=== PATIENT | male | born 1980 | race American Indian/Alaskan Native ===

== ENCOUNTER 2018-11-12 14:04 | Inpatient (IN) | payer SELFPAY ==
[2018-11-12] MEDS ORDERED: IBUPROFEN 800 MG TAB PO ONE (14:11)
--- NOTE | 2018-11-12 14:13 | Emergency Department Report ---
Blank Doc - Documentation Documentation: 38-year-old male that presents with generlized rash. Patient is a homosexual and perform oral sexual activity. This initial assessment/diagnostic orders/clinical plan/treatment(s) is/are subject to change based on patient's health status, clinical progression and re-assessment by fellow clinical providers in the ED. Further treatment and workup at subsequent clinical providers discretion. Patient/guardians urged not to elope from the ED as their condition may be serious if not clinically assessed and managed. Initial orders include: 1- Patient sent to [facility] for further evaluation and treatment 2- labs 3- motrin for fever
[2018-11-12 14:36] LABS: Basophils % (Auto) 0.7 % (0.0-1.8); Eosinophils % (Auto) 0.2 % (0.0-4.3); Hematocrit 39.1 % (35.5-45.6); Hemoglobin 12.7 gm/dl (11.8-15.2); Lymphocytes # (Auto) 1.5 K/mm3 (1.2-5.4); Lymphocytes % (Auto) 31.3 % (13.4-35.0); Mean Corpuscular HGB Conc 32 % (32-34); Mean Corpuscular Volume 72 fl (84-94); Monocytes # (Auto) 0.4 K/mm3 (0.0-0.8); Monocytes % (Auto) 7.4 % (0.0-7.3); Platelet Count 163 K/mm3 (140-440); Red Blood Count 5.47 M/mm3 (3.65-5.03); Red Cell Distribution Width 14.9 % (13.2-15.2)
[2018-11-12 14:55] LABS: BUN/Creatinine Ratio 10; Blood Urea Nitrogen 9 mg/dL (9-20); Calcium 9.1 mg/dL (8.4-10.2); Hemolysis Index 5
[2018-11-12] MEDS ORDERED: SODIUM CHLORIDE 0.9% 1000 ML 1,000 ML IV ONE (17:41)
--- NOTE | 2018-11-12 17:50 | Emergency Department Report ---
<ANKIT SOLARES III Monica - Last Filed: 11/12/18 20:44> ED General Adult HPI - General Chief complaint: Skin Rash Stated complaint: RASH Time Seen by Provider: 11/12/18 14:09 - Related Data Home Medications Medication Instructions Recorded Confirmed Last Taken No Known Home Medications [No 11/12/18 11/12/18 Unknown Reported Home Medications] Allergies Allergy/AdvReac Type Severity Reaction Status Date / Time No Known Allergies Allergy Unverified 11/12/18 14:07 ED Past Medical Hx - Medications Home Medications: Home Medications Medication Instructions Recorded Confirmed Last Taken Type No Known Home Medications [No 11/12/18 11/12/18 Unknown History Reported Home Medications] ED Course - Reevaluation(s) Reevaluation #1: I examined the patient. I discussed plan of care with patient. Patient agrees with plan of care. Patient will be admitted to the hospital service. Patient will an IV placed. Patient has a widespread car postseason-looking rash. 11/12/18 17:50 - Consultations Consultation #1: Hospitalist consulted for admission. Hospitalist to admit patient. 11/12/18 18:50 ED Medical Decision Making - Lab Data Result diagrams: 11/12/18 14:22 11/12/18 14:22 - Radiology Data Radiology results: report reviewed, image reviewed CHEST 2 VIEWS INDICATION / CLINICAL INFORMATION: fever tachy HIV+. COMPARISON: None available. FINDINGS: SUPPORT DEVICES: None. HEART / MEDIASTINUM: No significant abnormality. LUNGS / PLEURA: There is a focal mass measuring 5 cm in diameter within the lingular segment of the left upper lobe. This could represent neoplasm or infection. CT of the chest with contrast is suggested for further evaluation. The right lung is grossly clear. No large pleural effusion. ED Disposition Clinical Impression: Rash, Tachycardia, Noncompliance, Abnormal chest x-ray Fever Qualifiers: Fever type: unspecified Qualified Code(s): R50.9 - Fever, unspecified Fatigue Qualifiers: Fatigue type: unspecified Qualified Code(s): R53.83 - Other fatigue HIV (human immunodeficiency virus infection) Qualifiers: HIV symptom status: symptomatic Qualified Code(s): B20 - Human immunodeficiency virus [HIV] disease Disposition: OP ADMIT IP TO THIS HOSP Is pt being admited?: Yes Does the pt Need Aspirin: No Condition: Critical Time of Disposition: 19:01 <[place],ASA' M - Last Filed: 11/13/18 21:10> ED General Adult HPI - General Source: patient Mode of arrival: Ambulatory Limitations: No Limitations - History of Present Illness Initial comments: 38-year-old -[place]i male comes in for generalized rash fatigue and temperature. Patient reports that he had a rash for 1 week. Patient has a past medical history of HIV and has not been on his medication close to a year. Patient reports he was followed by Morenita Douglas but has not seen her in a long while. Patient admits to sweating fever no energy and weakness. Onset/Timin -: week(s) Location: chest, back, abdomen, upper extremity, lower extremity Radiation: non-radiation Consistency: constant Worsens with: none Associated Symptoms: diaphoresis, fever/chills, loss of appetite, malaise ED Review of Systems ROS: Stated complaint: RASH Other details as noted in HPI Comment: All other systems reviewed and negative Constitutional: chills, fever, weakness Skin: rash Neurological: weakness ED Past Medical Hx - Past Medical History Previous Medical History?: No Hx HIV: Yes - Surgical History Past Surgical History?: No - Social History Smoking Status: Current Every Day Smoker Substance Use Type: Alcohol ED Physical Exam - General Limitations: No Limitations General appearance: alert, in no apparent distress - Head Head exam: Present: atraumatic, normocephalic - ENT ENT exam: Present: mucous membranes moist - Respiratory Respiratory exam: Present: normal lung sounds bilaterally. Absent: respiratory distress - Extremities Exam Extremities exam: Present: other (rashes noted multiple lesions) - Back Exam Back exam: Present: rash noted - Neurological Exam Neurological exam: Present: alert, oriented X3, normal gait - Psychiatric Psychiatric exam: Present: normal affect, normal mood - Expanded Skin Exam Expanded Distribution of rash: chest, back, abdomen, RUE, LUE, RLE, LLE Description of rash: Present: macular, other (purpura) ED Course Vital Signs 11/12/18 11/12/18 11/12/18 14:09 15:44 23:00 Temperature 101.5 F H 99.8 F H Pulse Rate 101 H 90 Respiratory 16 18 16 Rate Blood Pressure 133/76 124/79 [Left] O2 Sat by Pulse 98 100 Oximetry ED Medical Decision Making - Lab Data Result diagrams: 11/13/18 06:11 11/13/18 06:11 - Medical Decision Making 38-year-old -[place]i male comes in for generalized rash fatigue and temperature. Patient reports that he had a rash for 1 week. Patient has a past medical history of HIV and has not been on his medication close to a year. Patient reports he was followed by Morenita Douglas but has not seen her in a long while. Patient admits to sweating fever no energy and weakness. Was evaluated by he interviewed patient and recommends the patient be admitted. - Differential Diagnosis AIDS, Kaposi's sarcoma, tuberculosis, pneumonia, Critical care attestation.: If time is entered above; I have spent that time in minutes in the direct care of this critically ill patient, excluding procedure time.
--- NOTE | 2018-11-12 19:27 | XRay Report ---
CHEST 2 VIEWS INDICATION / CLINICAL INFORMATION: fever tachy HIV+. COMPARISON: None available. FINDINGS: SUPPORT DEVICES: None. HEART / MEDIASTINUM: No significant abnormality. LUNGS / PLEURA: There is a focal mass measuring 5 cm in diameter within the lingular segment of the l eft upper lobe. This could represent neoplasm or infection. CT of the chest with contrast is suggeste d for further evaluation. The right lung is grossly clear. No large pleural effusion. Signer Name: Fausto Mariscal MD Signed: 11/12/2018 7:22 PM Workstation Name: [id number]
[2018-11-12] MEDS ORDERED: HYDROmorphone 1 MG/1 ML INJ IV PRN (21:59)
[2018-11-12] MEDS ORDERED: D5W/0.9% NACL 1,000 ML IV SCH (22:00)
[2018-11-12] MEDS ORDERED: ALBUTEROL 2.5 MG/3 ML NEBU IH PRN (22:02)
[2018-11-13 06:55] LABS: Alanine Aminotransferase 36 units/L (7-56); Albumin 3.2 g/dL (3.9-5); BUN/Creatinine Ratio 9; Blood Urea Nitrogen 8 mg/dL (9-20); Calcium 8.6 mg/dL (8.4-10.2); Hemolysis Index 10
[2018-11-13 06:57] LABS: Hematocrit 37.6 % (35.5-45.6); Hemoglobin 11.9 gm/dl (11.8-15.2); Mean Corpuscular HGB Conc 32 % (32-34); Mean Corpuscular Volume 72 fl (84-94); Platelet Count 170 K/mm3 (140-440); Red Cell Distribution Width 14.9 % (13.2-15.2)
--- NOTE | 2018-11-13 07:05 | Event Note ---
Date: 11/12/18 See H/p in reports [facility] Pneumonia HIV Kaposi sarcoma Noncompliance
--- NOTE | 2018-11-13 07:49 | History and Physical Report ---
CHIEF COMPLAINT: Skin rash all over for 1 week. HISTORY OF PRESENT ILLNESS: A 38-year-old -[place]er male with history of HIV, noncompliant with antiretrovirals, comes in for rash all over the body for one week. Elevated papular lesions. No itching. The patient also has some cough and congestion. Some shortness of breath. The patient follows with Dr. Douglas, but not regularly. Feels weak. As per the patient, there is no fever. PAST MEDICAL HISTORY: Significant for HIV. PAST SURGICAL HISTORY: None. SOCIAL HISTORY: Smokes over a pack a day. FAMILY HISTORY: Unremarkable. REVIEW OF SYSTEMS: Significant for shortness of breath and skin lesions all over. Otherwise, review of systems negative. PHYSICAL EXAMINATION: GENERAL: Middle-aged male, cooperative during examination. VITAL SIGNS: Blood pressure is 124/74, temperature is 102.4, pulse is 90-100, respirations are 16. HEENT: Unremarkable. Pupils equal and reactive. NECK: Supple, no lymphadenopathy, no thyromegaly. LUNGS: Scattered rhonchi bilaterally. CARDIOVASCULAR: S1, S2 heard. No gallop, no murmur, no rub. Apical impulse in left fifth intercostal space in midclavicular line. ABDOMEN: Soft and benign. No hepatosplenomegaly. No guarding, no rigidity. Hernial orifices are normal. EXTREMITIES: Good pedal pulses. No pedal edema. CENTRAL NERVOUS SYSTEM: Alert and oriented x 4, nonfocal exam. SKIN: The patient has multiple elevated, papular, round lesions about 1 cm x 1 cm. Slight erythema present. LABORATORY DATA AND IMAGING STUDIES: Chest x-ray shows a large infiltrate in the left lower lobe, focal mass measuring 5 cm in diameter. This could represent a neoplasm or infection. CT of the chest with contrast is suggested. Labs are significant for white count of 5000, H and H are 12.7 and 39.1, platelet count is 163,000. Electrolytes: Sodium 134, chloride 97.3. Potassium 4.2. LFTs: AST slightly elevated at 56, ALT 36, total protein is 8.9, albumin is 3.2. ASSESSMENT AND PLAN: 1. Left lower lobe pneumonia. We will treat it as community-acquired pneumonia with Rocephin and azithromycin. ID consult requested for proper antibiotic treatment. DuoNebs in the meantime. No steroids were initiated. 2. Human immunodeficiency virus. The patient noncompliant. Human immunodeficiency virus workup to be initiated by the Infectious Disease. 3. Kaposi sarcoma, most likely. The patient needs to take antiretrovirals on a regular basis. ID consult requested. 4. Hyponatremia, very mild. IV fluids for the time being. 5. Malnutrition. Dietitian consult requested. 6. Transaminitis, very mild. We will trend the AST. 7. Deep venous thrombosis prophylaxis, Lovenox 40 mg subcutaneous daily. In summary, the patient has left lower lobe pneumonia, HIV, possible Kaposi sarcoma, mild hyponatremia and malnutrition. JOB# [id number] HIMA/CHITRA WILLAMS
[2018-11-13] MEDS: IPRATROPIUM/ALBUTEROL SULFATE 3 ML AMPUL.NEB IH SCH ×4 (08:37→17:45)
--- NOTE | 2018-11-13 10:03 | Cat Scan Report ---
CT CHEST WITH CONTRAST INDICATION / CLINICAL INFORMATION: left lung mass on x-ray. TECHNIQUE: Axial CT images were obtained through the chest after Omnipaque 300 100 cc IV contrast. Sagittal and coronal reformatted images. All CT scans at this location are performed using CT dose reduction for A DOMINICK by means of automated exposure control. COMPARISON: Chest x-ray dated 11/12/2018 FINDINGS: HEART: No significant abnormality. THORACIC AORTA: No significant abnormality. MEDIASTINUM and JAMSHID: No significant abnormality. LUNGS: A 4.1 x 4.4 x 3.3 cm masslike lesion with mild internal cavitation is identified in the lingul a. There are approximately 3 ill-defined nodular densities in the anterior and lateral left lower lob e measuring up to 8 mm. There are 5 similar appearing nodular densities in the right lower lobe measu ring up to 9 mm. A 1.3 cm nodular density is noted in the medial right middle lobe. PLEURA: No significant pleural effusion. No pneumothorax. SKELETAL SYSTEM: No significant abnormality. UPPER ABDOMEN: No significant abnormality. ADDITIONAL FINDINGS: None. IMPRESSION: Multiple bilateral pulmonary nodules/masses are identified in the lower lung zones as described above . The largest mass is located in the lingula and demonstrates mild internal cavitation. A metastatic process should be considered. Opportunistic infection could also be considered in the immunocompromis ed patient. Please correlate with the patient's clinical presentation. Signer Name: Frederick Carrillo Jr, MD Signed: 11/13/2018 9:59 AM Workstation Name: [id number]
--- NOTE | 2018-11-13 10:16 | Progress Note ---
Assessment and Plan Assessment and plan: Pneumonia - Patient is on IV azithromycin and ceftriaxone - Blood cultures pending - Patient still has fever Multiple pulmonary nodules - Opportunistic infection VS malignancy - CT results noted HIV/AIDS - ID consulted Molluscum contagiosum, Kaposi's sarcoma - Management per ID DVT prophylaxis Disposition; continue inpatient care History Interval history: Patient was seen and evaluated this morning. Patient has fever episodes overnight. Patient is also complaining of some shortness of breath. Hospitalist Physical - Physical exam Narrative exam: Not in cardiopulmonary distress. The patient appeared well nourished and normally developed. Vital signs as documented. Head exam is unremarkable. No scleral icterus . Neck is without jugular venous distension, thyromegaly, or carotid bruits. Lungs are clear to auscultation. Cardiac exam reveals regular rate and Rhythm. Abdominal exam reveals normal bowel sounds, no masses, no organomegaly and no aortic enlargement. Extremities are nonedematous and both femoral and pedal pulses are normal. 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 No focal weakness. SKIN; molluscum contagiosum. Skin eruption all over. - Constitutional Vitals: Temp Pulse Resp BP Pulse Ox 102.4 F H 97 H 20 107/55 97 11/13/18 05:12 11/13/18 05:12 11/13/18 05:12 11/13/18 05:12 11/13/18 05:12 Results - Labs CBC & Chem 7: 11/13/18 06:11 11/13/18 06:11 Labs: Laboratory Last Values WBC 4.2 K/mm3 (4.5-11.0) L 11/13/18 06:11 RBC 5.20 M/mm3 (3.65-5.03) H 11/13/18 06:11 Hgb 11.9 gm/dl (11.8-15.2) 11/13/18 06:11 Hct 37.6 % (35.5-45.6) 11/13/18 06:11 MCV 72 fl (84-94) L 11/13/18 06:11 MCH 23 pg (28-32) L 11/13/18 06:11 MCHC 32 % (32-34) 11/13/18 06:11 RDW 14.9 % (13.2-15.2) 11/13/18 06:11 Plt Count 170 K/mm3 (140-440) 11/13/18 06:11 Lymph % (Auto) Online Facilitator 11/13/18 06:11 Nicholas % (Auto) Online Facilitator 11/13/18 06:11 Eos % (Auto) Online Facilitator 11/13/18 06:11 Baso % (Auto) Online Facilitator 11/13/18 06:11 Lymph # Online Facilitator 11/13/18 06:11 Nicholas # Online Facilitator 11/13/18 06:11 Eos # Online Facilitator 11/13/18 06:11 Baso # Online Facilitator 11/13/18 06:11 Seg Neutrophils % Online Facilitator 11/13/18 06:11 Seg Neutrophils # Online Facilitator 11/13/18 06:11 Sodium 136 mmol/L (137-145) L 11/13/18 06:11 Potassium 4.1 mmol/L (3.6-5.0) 11/13/18 06:11 Chloride 100.8 mmol/L (98-107) 11/13/18 06:11 Carbon Dioxide 26 mmol/L (22-30) 11/13/18 06:11 13 mmol/L 11/13/18 06:11 BUN 8 mg/dL (9-20) L 11/13/18 06:11 0.9 mg/dL (0.8-1.5) 11/13/18 06:11 Estimated GFR > 60 ml/min 11/13/18 06:11 9 % 11/13/18 06:11 Glucose 94 mg/dL (75-100) 11/13/18 06:11 5.5 % (4-6) 11/12/18 14:22 Lactic Acid 1.50 mmol/L (0.7-2.0) 11/12/18 15:22 Calcium 8.6 mg/dL (8.4-10.2) 11/13/18 06:11 0.30 mg/dL (0.1-1.2) 11/13/18 06:11 AST 56 units/L (5-40) H 11/13/18 06:11 ALT 36 units/L (7-56) 11/13/18 06:11 77 units/L (35-129) 11/13/18 06:11 8.9 g/dL (6.3-8.2) H 11/13/18 06:11 3.2 g/dL (3.9-5) L 11/13/18 06:11 0.6 % 11/13/18 06:11 Active Medications - Current Medications Current Medications: Generic Name Dose Route Start Last Admin Trade Name Freq PRN Reason Stop Dose Admin Acetaminophen 650 mg 11/12/18 21:59 Tylenol PO Q4H PRN Pain MILD(1-3)/Fever >100.5/FALK Albuterol 2.5 mg 11/12/18 22:02 11/13/18 02:53 Proventil IH 2.5 mg Q4HRT PRN Administration Shortness Of Breath Albuterol/Ipratropium 1 ampul 11/13/18 08:00 11/13/18 08:37 Duoneb *Not For Prn Use* IH 1 ampul QIDRT WIN Administration Enoxaparin Sodium 40 mg 11/13/18 10:00 Lovenox SUB-Q QDAY WIN Hydromorphone HCl 0.5 mg 11/12/18 21:59 Dilaudid IV Q3H PRN Pain , Severe (7-10) Azithromycin 500 mg/ Sodium 250 mls @ 250 mls/hr 11/13/18 10:00 Chloride IV Q24HR WIN Protocol Ceftriaxone Sodium 2 gm in 100 mls @ 200 mls/hr 11/13/18 10:00 Rocephin/Ns 2 Gm/100 Ml IV Q24HR WIN Protocol Sodium Chloride 1,000 mls @ 75 mls/hr 11/13/18 08:00 Nacl 0.9% 1000 Ml IV DIRECT WIN Ondansetron HCl 4 mg 11/12/18 21:59 Zofran IV Q8H PRN Nausea And Vomiting Oxycodone/Acetaminophen 1 tab 11/12/18 21:59 Percocet 5/325 PO Q6H PRN Pain, Moderate (4-6) Sodium Chloride 10 ml 11/12/18 22:00 11/12/18 23:08 Sodium Chloride Flush Syringe 10 Ml IV 10 ml BID WIN Administration Sodium Chloride 10 ml 11/12/18 21:59 Sodium Chloride Flush Syringe 10 Ml IV PRN PRN LINE FLUSH Nutrition/Malnutrition Assess - Dietary Evaluation Nutrition/Malnutrition Findings: Nutrition Notes Start: 11/13/18 09:49 Freq: Status: Active Protocol: Document 11/13/18 09:49 NAVID (Rec: 11/13/18 10:08 NAVID [id number]) Co-Sign 11/13/18 09:49 KH Nutrition Notes 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 Pt ate about 50% of breakfast because he stated he didn't like the food. Observed slight temporal muscle wasting. Pt agreed to try Ensure once daily. Burn Absent Trauma Absent Minimum of two criteria No #1 Nutrition Diagnosis Predicted suboptimal energy intake Etiology HIV As Evidenced by Signs and Symptoms 6% wt loss in 3 months Is patient on ventilator? No Is Patient Ambulatory and/or Out of Bed Yes REE-([facility]-ambulatory/OOB) [ 96 NUTR.[id number]] Calculation Used for Recommendations [facility] Additional Notes Protein needs: 51g-63g/kg (0.8 -1g/kg) Fluid needs: 1ml/kcal Nutrition Intervention Change Diet Order: Continue current Add Supplement/Snack (indicate name/kcal Ensure Enlive daily /protein ) Provides kCal: 350 Provides Protein (gm) 20 Goal #1 Meet at least 75% of protein and energy needs via po and ONS intakes Anticipated Discharge Needs: Regular diet and ONS PRN Follow-Up By: 11/17/18 Additional Comments F/U po and ONS intakes
[2018-11-13] MEDS: cefTRIAXone/NS 2 GM/100 ML 2 GM/100 ML BAG IV SCH (10:43)
[2018-11-13] MEDS: ENOXAPARIN 40 MG/0.4 ML INJ SUB-Q SCH (10:44)
[2018-11-13] MEDS: AZITHROMYCIN 500 MG in SODIUM CHLORIDE 0.9% 250ML 250 ML IV SCH (10:44)
[2018-11-13] MEDS: oxyCODONE /ACETAMINOPHEN 5-325MG TAB PO PRN ×2 (11:02→22:49)
--- NOTE | 2018-11-13 11:54 | Consultation ---
History of Present Illness - Reason for Consult Consult date: 11/13/18 - History of Present Illness 38 yo M PMHx HIV who presents to the hospital complaining of generalized rash and fatigue. He notes these symptoms began approximately 1 week prior to admission. He also complains of a subjective fever. Regarding his HIV he falk been off medication for over a year now, and has not followed with his HIV doctor, Dr. Douglas, in some time. He is not taking any opportunistic infection prophylaxis. He notes some shortness of breath as well, but very mild, and minimal cough. He complains of a chronic, very mild headache. his last ART was Biktarvy, unsure of his most recent CD4. For the last 2-3 weeks he has developed numerous skin lesion, some papular, some large purple plaques. Mildly itchy, tho ugh not really. Has a history of previously diagnosed Molluscum near his eye. He is currently febrile to 102.4 with a white count of 4.2. He is also tachycardic. He is currently receiving ceftriaxone and azithromycin. 11/12 BCx NGTD. Imaging personally reviewed: CXR: Focal mass 5cm in lingula; neoplasm vs infection. CT chest: multiple bilateral pulmonary nodules in the lower lung zones. Lingular mass demonstrates mild internal cavitation. Metastatic vs opportunistic infection. Review of systems: Bold if positive; otherwise negative GENERAL: fever, chills, weight loss, fatigue, night sweats EYES: blurry vision, eye pain HENT: headache, hearing loss, sore throat, dysphagia, sinus pain CARDIO: chest pain, palpitations, orthopnea PULM: shortness of breath, wheezing, cough, sputum, hemoptysis GI: nausea, vomiting, diarrhea, abdominal pain, blood in stool : urinary frequency, urgency, dysuria, urethral discharge MSK: joint pain, back pain, swelling SKIN: rash, redness HEME: easy bruising, bleeding Past History Past Medical History: other (HIV) Past Surgical History: No surgical history Social history: denies: smoking, alcohol abuse Family history: hypertension Medications and Allergies Allergies Allergy/AdvReac Type Severity Reaction Status Date / Time No Known Allergies Allergy Unverified 11/12/18 14:07 Home Medications Medication Instructions Recorded Confirmed Last Taken Type No Known Home Medications [No 11/12/18 11/12/18 Unknown History Reported Home Medications] Active Meds: Active Medications Acetaminophen (Tylenol) 650 mg PO Q4H PRN PRN Reason: Pain MILD(1-3)/Fever >100.5/FALK Albuterol (Proventil) 2.5 mg IH Q4HRT PRN PRN Reason: Shortness Of Breath Last Admin: 11/13/18 02:53 Dose: 2.5 mg Documented by: Albuterol/Ipratropium (Duoneb *Not For Prn Use*) 1 ampul IH QIDRT [facility] Last Admin: 11/13/18 08:37 Dose: 1 ampul Documented by: Enoxaparin Sodium (Lovenox) 40 mg SUB-Q QDAY [facility] Last Admin: 11/13/18 10:44 Dose: 40 mg Documented by: Hydromorphone HCl (Dilaudid) 0.5 mg IV Q3H PRN PRN Reason: Pain , Severe (7-10) Azithromycin 500 mg/ Sodium (Chloride) 250 mls @ 250 mls/hr IV Q24HR [facility]; Protocol Last Admin: 11/13/18 10:44 Dose: 250 mls/hr Documented by: Ceftriaxone Sodium (Rocephin/Ns 2 Gm/100 Ml) 2 gm in 100 mls @ 200 mls/hr IV Q24HR [facility]; Protocol Last Admin: 11/13/18 10:43 Dose: 200 mls/hr Documented by: Sodium Chloride (Nacl 0.9% 1000 Ml) 1,000 mls @ 75 mls/hr IV DIRECT WIN Ondansetron HCl (Zofran) 4 mg IV Q8H PRN PRN Reason: Nausea And Vomiting Oxycodone/Acetaminophen (Percocet 5/325) 1 tab PO Q6H PRN PRN Reason: Pain, Moderate (4-6) Last Admin: 11/13/18 11:02 Dose: 1 tab Documented by: Sodium Chloride (Sodium Chloride Flush Syringe 10 Ml) 10 ml IV BID [facility] Last Admin: 11/13/18 10:45 Dose: 10 ml Documented by: Sodium Chloride (Sodium Chloride Flush Syringe 10 Ml) 10 ml IV PRN PRN PRN Reason: LINE FLUSH Physical Examination - Physical Exam Narrative exam: General - Normal appearance, well developed, no acute distress Eyes - PERRLA, EOM intact ENT - Moist mucous membranes, no lymphadenopathy Neck - No noticeable or palpable swelling, redness or rash around throat or on face Lymph Nodes - No lymphadenopathy Cardiovascular - RRR no m/r/g, no JVD, no carotid bruits Lungs - Clear to auscultation, no use of accessory muscles, no crackles or wheezes. Skin - Diffuse lesions on trunk and extremities. Innumerable red nodules, with apprxomiately 20 re/purple plaques. Pearly papular lesions near eyelid. Abdomen - Normal bowel sounds, abdomen soft and nontender Extremities - No edema, cyanosis or clubbing Musculoskeletal - 5/5 strength, normal range of motion, no swollen or erythematous joints. Neurological - Alert and oriented x 3, CN 2-12 grossly intact. - Constitutional Vitals: Vital Signs Temp Pulse Resp BP Pulse Ox 102.4 F H 97 H 20 107/55 97 11/13/18 05:12 11/13/18 05:12 11/13/18 05:12 11/13/18 05:12 11/13/18 05:12 Temperature -Last 24 Hours Temperature 102.4 F Temperature 98.8 F Temperature 99.8 F Temperature 101.5 F Results - Labs CBC & Chem 7: 11/13/18 06:11 11/13/18 06:11 Labs: Abnormal lab results 11/12/18 11/12/18 11/13/18 Range/Units 14:22 14:22 06:11 WBC 4.2 L (4.5-11.0) K/mm3 RBC 5.47 H 5.20 H (3.65-5.03) M/mm3 MCV 72 L 72 L (84-94) fl MCH 23 L 23 L (28-32) pg [place] % (Auto) 7.4 H (0.0-7.3) % Sodium 134 L (137-145) mmol/L Chloride 97.3 L (98-107) mmol/L BUN (9-20) mg/dL AST (5-40) units/L Total Protein (6.3-8.2) g/dL Albumin (3.9-5) g/dL 11/13/18 Range/Units 06:11 WBC (4.5-11.0) K/mm3 RBC (3.65-5.03) M/mm3 MCV (84-94) fl MCH (28-32) pg [place] % (Auto) (0.0-7.3) % Sodium 136 L (137-145) mmol/L Chloride (98-107) mmol/L BUN 8 L (9-20) mg/dL AST 56 H (5-40) units/L Total Protein 8.9 H (6.3-8.2) g/dL Albumin 3.2 L (3.9-5) g/dL Assessment and Plan Cultures: BCx 11/12 - NGTD Assessment: 38 yo M PMHx HIV/AIDS not on ART admitted with fevers, pneumonia 1. Acute sepsis - present on admission with fevers, leukopenia, tachycardia. Likely secondary to pneumonia. 2. Pulmonary nodules in immunocompromised patient - broad differential in patient off ART. In the setting of cavitation must rule out TB, so I have ordered 3x AFB cultures/smears spaced 8 hours apart. I have ordered airborne precautions until it is ruled out. Other differential: pulmonary Cryptococcosis (have ordered serum Ag; if positive would need LP), PJP though does not have classic imaging findings, Histoplasmosis/blastomycosis (have ordered urine antibodies for both), bacterial pneumonia, malignancy, MAC. Would obtain pulmonary consult for bronch and further diagnosis. 3. HIV/AIDS - will check CD4 and viral load to see current disease state. Would recommend holding off on starting ART until above ruled out (notably TB and Crypto). Would also check Hepatitis C antibody and syphilis screen given he has been out of care for some time. 4. 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 Requires skin biopsy. Please send biopsy for path and Bartonella PCR. In consideration with his pulmonary findings would lean toward [place], but very difficult to differentiate. Recs: - CD4 count (ordered) - viral load (ordered) - Cryptococcus serum antigen (ordered) - pulmonology consult for bronch - please obtain bacterial, fungal cultures, PJP PCR (please obtain) - histoplasmosis/blastomycosis urine antibodies (ordered) - Fungitell (ordered) - 3x AFB cultures spaced 8 hours apart to rule out TB (ordered) - airborne isolation pending negative smears (ordered) - hold off on ART pending investigation into opportunistic infections (primarily Crypto) - hepatitis C Ab (ordered) - syphilis screen (ordered) - General surgery for skin biopsy (please obtain) - please send for path and Bartonella PCR (ordered PCR) Thank you for the consult, we will continue to follow. Renee Valentin MD [facility] ([facility]) M: [phone] O: [phone] F: [phone]
[2018-11-13] MEDS: ACETAMINOPHEN 325 MG TAB PO PRN (17:57)
[2018-11-13] MEDS: SODIUM CHLORIDE 0.9% 1000 ML 1,000 ML IV SCH (18:56)
[2018-11-13] MEDS: FLUTICASONE PROPIONATE NASAL SPRAY 16 GM NS SCH (20:03)
[2018-11-14] MEDS: SODIUM CHLORIDE 0.9% 1000 ML 1,000 ML IV SCH ×2 (08:20→22:57)
[2018-11-14] MEDS ORDERED: LIDOCAINE 1%/EPINEPHRINE 1:100,000 VIAL (20 ML) INFILTRATI ONE (09:30)
[2018-11-14] MEDS: cefTRIAXone/NS 2 GM/100 ML 2 GM/100 ML BAG IV SCH (10:30)
[2018-11-14] MEDS: FLUTICASONE PROPIONATE NASAL SPRAY 16 GM NS SCH (10:30)
[2018-11-14] MEDS: AZITHROMYCIN 500 MG in SODIUM CHLORIDE 0.9% 250ML 250 ML IV SCH (10:30)
[2018-11-14] MEDS: ENOXAPARIN 40 MG/0.4 ML INJ SUB-Q SCH (10:31)
--- NOTE | 2018-11-14 13:07 | Consultation ---
History of Present Illness Consult date: 11/14/18 Reason for consult: other (biopsy) Requesting physician: SUNITHA ENRIQUEZ Chief complaint: multiple skin lesions - History of present illness History of present illness: 38-year-old -Welsh male with HIV admitted for generalized rash fatigue, temperature and SOB. Pt found to have multiple lesions throughout the body. Gen Surg asked to obtain skin biopsies. Past History Past Medical History: other (HIV) Past Surgical History: Other (knee surgery for broken knee cap) Social history: denies: smoking, alcohol abuse Family history: hypertension Medications and Allergies Allergies Allergy/AdvReac Type Severity Reaction Status Date / Time No Known Allergies Allergy Unverified 11/12/18 14:07 Home Medications Medication Instructions Recorded Confirmed Last Taken Type No Known Home Medications [No 11/12/18 11/12/18 Unknown History Reported Home Medications] Active Meds: Active Medications Acetaminophen (Tylenol) 650 mg PO Q4H PRN PRN Reason: Pain MILD(1-3)/Fever >100.5/FALK Last Admin: 11/13/18 17:57 Dose: 650 mg Documented by: Albuterol (Proventil) 2.5 mg IH Q4HRT PRN PRN Reason: Shortness Of Breath Last Admin: 11/13/18 02:53 Dose: 2.5 mg Documented by: Albuterol/Ipratropium (Duoneb *Not For Prn Use*) 1 ampul IH QIDRT [facility] Last Admin: 11/13/18 17:45 Dose: 1 ampul Documented by: Enoxaparin Sodium (Lovenox) 40 mg SUB-Q QDAY [facility] Last Admin: 11/14/18 10:31 Dose: 40 mg Documented by: Fluticasone Propionate (Flonase) 100 mcg NS QDAY [facility] Last Admin: 11/14/18 10:30 Dose: 100 mcg Documented by: Hydromorphone HCl (Dilaudid) 0.5 mg IV Q3H PRN PRN Reason: Pain , Severe (7-10) Azithromycin 500 mg/ Sodium (Chloride) 250 mls @ 250 mls/hr IV Q24HR [facility]; Protocol Last Admin: 11/14/18 10:30 Dose: 250 mls/hr Documented by: Ceftriaxone Sodium (Rocephin/Ns 2 Gm/100 Ml) 2 gm in 100 mls @ 200 mls/hr IV Q24HR [facility]; Protocol Last Admin: 11/14/18 10:30 Dose: 200 mls/hr Documented by: Sodium Chloride (Nacl 0.9% 1000 Ml) 1,000 mls @ 75 mls/hr IV DIRECT [facility] Last Admin: 11/14/18 08:20 Dose: 75 mls/hr Documented by: Ondansetron HCl (Zofran) 4 mg IV Q8H PRN PRN Reason: Nausea And Vomiting Oxycodone/Acetaminophen (Percocet 5/325) 1 tab PO Q6H PRN PRN Reason: Pain, Moderate (4-6) Last Admin: 11/13/18 22:49 Dose: 1 tab Documented by: Sodium Chloride (Sodium Chloride Flush Syringe 10 Ml) 10 ml IV BID [facility] Last Admin: 11/14/18 11:33 Dose: 10 ml Documented by: Sodium Chloride (Sodium Chloride Flush Syringe 10 Ml) 10 ml IV PRN PRN PRN Reason: LINE FLUSH Review of Systems - Constitutional fever, sweats, weakness - Cardiovascular shortness of breath - Gastrointestinal no abdominal pain, no nausea, no vomiting - Integumentary rash, lesions Exam Vital Signs Temp Pulse Resp BP Pulse Ox 101.5 F H 101 H 16 133/76 98 11/12/18 14:09 11/12/18 14:09 11/12/18 14:09 11/12/18 14:09 11/12/18 14:09 - General physical appearance Positive: no distress, no pain - Eyes Positive: normal occular movement - Respiratory Positive: normal expansion, normal respiratory effort - Extremities Extremities: normal temperature, normal color - Abdomen Abdomen: Present: soft, bowel sounds normal. Absent: tender, distended - Integumentary other (1-2cm brown lesions noted throughout the body. Nontender. Smooth) - Neurologic Neurologic: alert and oriented to time, place and person, motor strength and sensation are grossly intact - Psychiatric Psychiatric: appropriate mood/affect, intact judgment & insight, cooperative Results - Labs 11/14/18 14:06 11/13/18 06:11 Assessment and Plan - Patient Problems (1) Rash Current Visit: Yes Status: Acute Plan to address problem: Pt stable. There is concern for Kaposi Sarcoma. Will plan to perform bedside biopsy. Have spoken to Dr. Martínez in Pathology to make sure the specimen is sent correctly for evaluation. Procedure, risks, benefits discussed. All questions answered. Consent obtained. Will do bx today. Please call with questions. time=30min
--- NOTE | 2018-11-14 13:08 | Consultation ---
History of Present Illness Consult date: 11/14/18 Requesting physician: RACHID PHAM Reason for consult: abnormal CXR/CT History of present illness: 38 yo with HIV/AIDS noncompliant with ART admitted w/ skin rash and fever. Found to have lung lesions. Denies SOB, chest pain, cough, sputum, hemoptysis. + Smoker. We are asked to evaluate this patient for bronch. Active Medications Acetaminophen (Tylenol) 650 mg PO Q4H PRN PRN Reason: Pain MILD(1-3)/Fever >100.5/FALK Last Admin: 11/13/18 17:57 Dose: 650 mg Documented by: Albuterol (Proventil) 2.5 mg IH Q4HRT PRN PRN Reason: Shortness Of Breath Last Admin: 11/13/18 02:53 Dose: 2.5 mg Documented by: Albuterol/Ipratropium (Duoneb *Not For Prn Use*) 1 ampul IH QIDRT [facility] Last Admin: 11/14/18 20:50 Dose: 1 ampul Documented by: Enoxaparin Sodium (Lovenox) 40 mg SUB-Q QDAY [facility] Last Admin: 11/14/18 10:31 Dose: 40 mg Documented by: Fluticasone Propionate (Flonase) 100 mcg NS QDAY [facility] Last Admin: 11/14/18 10:30 Dose: 100 mcg Documented by: Hydromorphone HCl (Dilaudid) 0.5 mg IV Q3H PRN PRN Reason: Pain , Severe (7-10) Azithromycin 500 mg/ Sodium (Chloride) 250 mls @ 250 mls/hr IV Q24HR [facility]; Protocol Last Admin: 11/14/18 10:30 Dose: 250 mls/hr Documented by: Ceftriaxone Sodium (Rocephin/Ns 2 Gm/100 Ml) 2 gm in 100 mls @ 200 mls/hr IV Q24HR [facility]; Protocol Last Admin: 11/14/18 10:30 Dose: 200 mls/hr Documented by: Sodium Chloride (Nacl 0.9% 1000 Ml) 1,000 mls @ 75 mls/hr IV DIRECT [facility] Last Admin: 11/14/18 22:57 Dose: 75 mls/hr Documented by: Ondansetron HCl (Zofran) 4 mg IV Q8H PRN PRN Reason: Nausea And Vomiting Oxycodone/Acetaminophen (Percocet 5/325) 1 tab PO Q6H PRN PRN Reason: Pain, Moderate (4-6) Last Admin: 11/14/18 22:57 Dose: 1 tab Documented by: Oxycodone/Acetaminophen (Percocet 5/325) 2 tab PO ONCE PRN PRN Reason: Pain , Severe (7-10) Last Admin: 11/14/18 16:40 Dose: 2 tab Documented by: Sodium Chloride (Sodium Chloride Flush Syringe 10 Ml) 10 ml IV BID [facility] Last Admin: 11/14/18 22:57 Dose: 10 ml Documented by: Sodium Chloride (Sodium Chloride Flush Syringe 10 Ml) 10 ml IV PRN PRN PRN Reason: LINE FLUSH Past History Past Medical History: other (HIV) Past Surgical History: No surgical history Social history: smoking. denies: alcohol abuse Family history: hypertension Medications and Allergies Allergies Allergy/AdvReac Type Severity Reaction Status Date / Time No Known Allergies Allergy Unverified 11/12/18 14:07 Home Medications Medication Instructions Recorded Confirmed Last Taken Type No Known Home Medications [No 11/12/18 11/12/18 Unknown History Reported Home Medications] Active Meds: Active Medications Acetaminophen (Tylenol) 650 mg PO Q4H PRN PRN Reason: Pain MILD(1-3)/Fever >100.5/FALK Last Admin: 11/13/18 17:57 Dose: 650 mg Documented by: Albuterol (Proventil) 2.5 mg IH Q4HRT PRN PRN Reason: Shortness Of Breath Last Admin: 11/13/18 02:53 Dose: 2.5 mg Documented by: Albuterol/Ipratropium (Duoneb *Not For Prn Use*) 1 ampul IH QIDRT [facility] Last Admin: 11/13/18 17:45 Dose: 1 ampul Documented by: Enoxaparin Sodium (Lovenox) 40 mg SUB-Q QDAY [facility] Last Admin: 11/14/18 10:31 Dose: 40 mg Documented by: Fluticasone Propionate (Flonase) 100 mcg NS QDAY [facility] Last Admin: 11/14/18 10:30 Dose: 100 mcg Documented by: Hydromorphone HCl (Dilaudid) 0.5 mg IV Q3H PRN PRN Reason: Pain , Severe (7-10) Azithromycin 500 mg/ Sodium (Chloride) 250 mls @ 250 mls/hr IV Q24HR [facility]; Protocol Last Admin: 11/14/18 10:30 Dose: 250 mls/hr Documented by: Ceftriaxone Sodium (Rocephin/Ns 2 Gm/100 Ml) 2 gm in 100 mls @ 200 mls/hr IV Q24HR [facility]; Protocol Last Admin: 11/14/18 10:30 Dose: 200 mls/hr Documented by: Sodium Chloride (Nacl 0.9% 1000 Ml) 1,000 mls @ 75 mls/hr IV DIRECT [facility] Last Admin: 11/14/18 08:20 Dose: 75 mls/hr Documented by: Ondansetron HCl (Zofran) 4 mg IV Q8H PRN PRN Reason: Nausea And Vomiting Oxycodone/Acetaminophen (Percocet 5/325) 1 tab PO Q6H PRN PRN Reason: Pain, Moderate (4-6) Last Admin: 11/13/18 22:49 Dose: 1 tab Documented by: Sodium Chloride (Sodium Chloride Flush Syringe 10 Ml) 10 ml IV BID [facility] Last Admin: 11/14/18 11:33 Dose: 10 ml Documented by: Sodium Chloride (Sodium Chloride Flush Syringe 10 Ml) 10 ml IV PRN PRN PRN Reason: LINE FLUSH Review of Systems All systems: negative Physical Examination Vital signs: Vital Signs Temp Pulse Resp BP Pulse Ox 101.5 F H 101 H 16 133/76 98 11/12/18 14:09 11/12/18 14:09 11/12/18 14:09 11/12/18 14:09 11/12/18 14:09 Vital Signs - 24 hr 11/13/18 11/13/18 11/13/18 16:40 17:45 23:39 Temperature 100.8 F H 99.0 F Pulse Rate 103 H 94 H Pulse Rate [ 82 Bilateral] Respiratory 24 17 Rate Respiratory 18 Rate [Bilateral ] Blood Pressure 137/75 111/64 O2 Sat by Pulse 94 100 Oximetry 11/14/18 11/14/18 05:29 11:08 Temperature 98.9 F 97.6 F Pulse Rate 80 93 H Pulse Rate [ Bilateral] Respiratory 20 19 Rate Respiratory Rate [Bilateral ] Blood Pressure 119/67 133/82 O2 Sat by Pulse 97 98 Oximetry General appearance: no acute distress, alert Eyes: non-icteric Neck: supple Effort: normal Ascultation: Bilateral: clear Cardiovascular: regular rate and rhythm (no mrg) Gastrointestinal: normoactive bowel sounds, soft, non-tender, non-distended Integumentary: rash (papular lesions) Extremities: no cyanosis, no edema, pink and warm normal mental status, non-focal exam, pupils equal and round, CN II-XII normal mood appropriate, affect normal Results - Laboratory Findings CBC and BMP: 11/14/18 14:06 11/13/18 06:11 Abnormal lab findings: Abnormal Labs 11/12/18 11/12/18 11/13/18 14:22 14:22 06:11 WBC 4.2 L RBC 5.47 H 5.20 H MCV 72 L 72 L MCH 23 L 23 L [place] % (Auto) 7.4 H Sodium 134 L Chloride 97.3 L BUN AST Total Protein Albumin 11/13/18 06:11 WBC RBC MCV MCH [place] % (Auto) Sodium 136 L Chloride BUN 8 L AST 56 H Total Protein 8.9 H Albumin 3.2 L - Diagnostic Findings Chest x-ray: report reviewed, image reviewed CT scan - chest: report reviewed, image reviewed Assessment and Plan Imp: 1. Cavitary lung lesion/pulm nodules, suspect OI 2. Skin rash, likely related to #1 3. HIV/AIDS 4. Chronic nicotine dependence, cigarettes 5. Sepsis Rec: 1. ABX and non-pulmonary work-up as outlined in ID note 2. S/p Punch biopsy of skin lesion; f/u pathology/cultures 3. Tentatively plan for bronch early next week; patient willing Plan of care reviewed w/ patient, he understands/agrees Thanks kindly for the consult.
--- NOTE | 2018-11-14 13:09 | Procedure Note ---
Date of procedure: 11/14/18 Pre-op diagnosis: Multiple Skin Lesions Post-op diagnosis: same Procedure: Skin Punch Biopsies X 2 Procedure, risks, benefits discussed. All questions answered. Consent obtained. Timeout done. Sterile prep and drape. 1%lido with epi used to anesthetize area. 2 skin punch biopsies done of a back lesion with biopsy instrument. Hemostasis obtained by holding pressure. Dressing placed. Pt tolerated the procedure well. No complications. Specimen taken directly to lab as they recommended. Given to Dr. Martínez. Anesthesia: local Surgeon: LEONORA WESLEY Estimated blood loss: minimal Pathology: list (2 skin punch biopsies) Specimen disposition: to lab Condition: stable Disposition: floor
--- NOTE | 2018-11-14 13:31 | Progress Note ---
Assessment and Plan Assessment and plan: Pneumonia - Patient is on IV azithromycin and ceftriaxone - Blood cultures NTD Multiple pulmonary nodules - Opportunistic infection VS malignancy - CT results noted - Pulmonary consulted for bronchoscopy HIV/AIDS - ID consulted Molluscum contagiosum, Kaposi's sarcoma - Management per ID - Surgery did biopsy today RPR is positive - We'll be do LP to evaluated for neurosyphilis DVT prophylaxis Disposition; continue inpatient care History Interval history: Patient was seen and evaluated this morning. Patient didn't have any complaints. Hospitalist Physical - Physical exam Narrative exam: Not in cardiopulmonary distress. The patient appeared well nourished and normally developed. Vital signs as documented. Head exam is unremarkable. No scleral icterus . Neck is without jugular venous distension, thyromegaly, or carotid bruits. Lungs are clear to auscultation. Cardiac exam reveals regular rate and Rhythm. Abdominal exam reveals normal bowel sounds, no masses, no organomegaly and no aortic enlargement. Extremities are nonedematous and both femoral and pedal pulses are normal. 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 No focal weakness. SKIN; molluscum contagiosum. Skin eruption all over. - Constitutional Vitals: Temp Pulse Resp BP Pulse Ox 97.6 F 93 H 19 133/82 98 11/14/18 11:08 11/14/18 11:08 11/14/18 11:08 11/14/18 11:08 11/14/18 11:08 Results - Labs CBC & Chem 7: 11/13/18 06:11 11/13/18 06:11 Labs: Laboratory Last Values WBC 4.2 K/mm3 (4.5-11.0) L 11/13/18 06:11 RBC 5.20 M/mm3 (3.65-5.03) H 11/13/18 06:11 Hgb 11.9 gm/dl (11.8-15.2) 11/13/18 06:11 Hct 37.6 % (35.5-45.6) 11/13/18 06:11 MCV 72 fl (84-94) L 11/13/18 06:11 MCH 23 pg (28-32) L 11/13/18 06:11 MCHC 32 % (32-34) 11/13/18 06:11 RDW 14.9 % (13.2-15.2) 11/13/18 06:11 Plt Count 170 K/mm3 (140-440) 11/13/18 06:11 Lymph % (Auto) Plant Production [employer] 11/13/18 06:11 [place] % (Auto) Plant Production Worker 11/13/18 06:11 Eos % (Auto) Plant Production Worker 11/13/18 06:11 Baso % (Auto) Plant Production Worker 11/13/18 06:11 Lymph # [employer] 11/13/18 06:11 [place] # Plant Production Worker 11/13/18 06:11 Eos # Plant Production Worker 11/13/18 06:11 Baso # Plant Production Worker 11/13/18 06:11 Seg Neutrophils % Plant Production Worker 11/13/18 06:11 Seg Neutrophils # Plant Production Worker 11/13/18 06:11 Sodium 136 mmol/L (137-145) L 11/13/18 06:11 Potassium 4.1 mmol/L (3.6-5.0) 11/13/18 06:11 Chloride 100.8 mmol/L (98-107) 11/13/18 06:11 Carbon Dioxide 26 mmol/L (22-30) 11/13/18 06:11 13 mmol/L 11/13/18 06:11 BUN 8 mg/dL (9-20) L 11/13/18 06:11 0.9 mg/dL (0.8-1.5) 11/13/18 06:11 Estimated GFR > 60 ml/min 11/13/18 06:11 9 % 11/13/18 06:11 Glucose 94 mg/dL (75-100) 11/13/18 06:11 5.5 % (4-6) 11/12/18 14:22 Lactic Acid 1.50 mmol/L (0.7-2.0) 11/12/18 15:22 Calcium 8.6 mg/dL (8.4-10.2) 11/13/18 06:11 0.30 mg/dL (0.1-1.2) 11/13/18 06:11 AST 56 units/L (5-40) H 11/13/18 06:11 ALT 36 units/L (7-56) 11/13/18 06:11 77 units/L (35-129) 11/13/18 06:11 8.9 g/dL (6.3-8.2) H 11/13/18 06:11 3.2 g/dL (3.9-5) L 11/13/18 06:11 0.6 % 11/13/18 06:11 RPR Titer 1:128 11/12/18 14:22 RPR Reactive (Nonreactive) 11/12/18 14:22 Non-reactive (NonReactive) 11/13/18 14:29 Active Medications - Current Medications Current Medications: Generic Name Dose Route Start Last Admin Trade Name Freq PRN Reason Stop Dose Admin Acetaminophen 650 mg 11/12/18 21:59 11/13/18 17:57 Tylenol PO 650 mg Q4H PRN Administration Pain MILD(1-3)/Fever >100.5/FALK Albuterol 2.5 mg 11/12/18 22:02 11/13/18 02:53 Proventil IH 2.5 mg Q4HRT PRN Administration Shortness Of Breath Albuterol/Ipratropium 1 ampul 11/13/18 08:00 11/13/18 17:45 Duoneb *Not For Prn Use* IH 1 ampul QIDRT WIN Administration Enoxaparin Sodium 40 mg 11/13/18 10:00 11/14/18 10:31 Lovenox SUB-Q 40 mg QDAY WIN Administration Fluticasone Propionate 100 mcg 11/13/18 19:00 11/14/18 10:30 Flonase NS 100 mcg QDAY WIN Administration Hydromorphone HCl 0.5 mg 11/12/18 21:59 Dilaudid IV Q3H PRN Pain , Severe (7-10) Azithromycin 500 mg/ Sodium 250 mls @ 250 mls/hr 11/13/18 10:00 11/14/18 10:30 Chloride IV 250 mls/hr Q24HR WIN Administration Protocol Ceftriaxone Sodium 2 gm in 100 mls @ 200 mls/hr 11/13/18 10:00 11/14/18 10:30 Rocephin/Ns 2 Gm/100 Ml IV 200 mls/hr Q24HR WIN Administration Protocol Sodium Chloride 1,000 mls @ 75 mls/hr 11/13/18 08:00 11/14/18 08:20 Nacl 0.9% 1000 Ml IV 75 mls/hr DIRECT WIN Administration Ondansetron HCl 4 mg 11/12/18 21:59 Zofran IV Q8H PRN Nausea And Vomiting Oxycodone/Acetaminophen 1 tab 11/12/18 21:59 11/13/18 22:49 Percocet 5/325 PO 1 tab Q6H PRN Administration Pain, Moderate (4-6) Oxycodone/Acetaminophen 2 tab 11/14/18 13:09 Percocet 5/325 PO ONCE PRN Pain , Severe (7-10) Sodium Chloride 10 ml 11/12/18 22:00 11/14/18 11:33 Sodium Chloride Flush Syringe 10 Ml IV 10 ml BID WIN Administration Sodium Chloride 10 ml 11/12/18 21:59 Sodium Chloride Flush Syringe 10 Ml IV PRN PRN LINE FLUSH Nutrition/Malnutrition Assess - Dietary Evaluation Nutrition/Malnutrition Findings: Nutrition Notes Start: 11/13/18 09:49 Freq: Status: Active Protocol: Document 11/13/18 09:49 NAVID (Rec: 11/13/18 10:08 NAVID [id number]) Co-Sign 11/13/18 09:49 Nutrition Notes 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 Pt ate about 50% of breakfast because he stated he didn't like the food. Observed slight temporal muscle wasting. Pt agreed to try Ensure once daily. Burn Absent Trauma Absent Minimum of two criteria No #1 Nutrition Diagnosis Predicted suboptimal energy intake Etiology HIV As Evidenced by Signs and Symptoms 6% wt loss in 3 months Is patient on ventilator? No Is Patient Ambulatory and/or Out of Bed Yes REE-([facility]-ambulatory/OOB) [ 96 NUTR.MSJOOB] Calculation Used for Recommendations [facility] Additional Notes Protein needs: 51g-63g/kg (0.8 -1g/kg) Fluid needs: 1ml/kcal Nutrition Intervention Change Diet Order: Continue current Add Supplement/Snack (indicate name/kcal Ensure Enlive daily /protein ) Provides kCal: 350 Provides Protein (gm) 20 Goal #1 Meet at least 75% of protein and energy needs via po and ONS intakes Anticipated Discharge Needs: Regular diet and ONS PRN Follow-Up By: 11/17/18 Additional Comments F/U po and ONS intakes
[2018-11-14 14:38] LABS: INR 1.01 (0.87-1.13)
[2018-11-14 14:39] LABS: Partial Thromboplastin Time 38.2 Sec. (24.2-36.6)
[2018-11-14] MEDS: IPRATROPIUM/ALBUTEROL SULFATE 3 ML AMPUL.NEB IH SCH ×3 (14:43→20:50)
[2018-11-14] MEDS: oxyCODONE /ACETAMINOPHEN 5-325MG TAB PO PRN ×2 (16:40→22:57)
--- NOTE | 2018-11-14 18:25 | Progress Note ---
Assessment and Plan Cultures: BCx 11/12 - NGTD Assessment: 38 yo M PMHx HIV/AIDS not on ART admitted with fevers, pneumonia. 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 1. Acute sepsis - present on admission with fevers, leukopenia, tachycardia. Likely secondary to pneumonia. 2. Pulmonary nodules in immunocompromised patient - broad differential in patient off ART. In the setting of cavitation must rule out TB, so I have ordered 3x AFB cultures/smears spaced 8 hours apart. I have ordered airborne precautions until it is ruled out. Other differential: pulmonary Cryptococcosis (have ordered serum Ag; if positive would need LP), PJP though does not have classic imaging findings, Histoplasmosis/blastomycosis (have ordered urine antibodies for both), bacterial pneumonia, malignancy, MAC. Would obtain pulm onary consult for bronch and further diagnosis. 3. HIV/AIDS - will check CD4 and viral load to see current disease state. Would recommend holding off on starting ART until above ruled out (notably TB and Crypto). Would also check Hepatitis C antibody and syphilis screen given he has been out of care for some time. 4. 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 Requires skin biopsy. Please send biopsy for path and Bartonella PCR. In consideration with his pulmonary findings would lean toward [place], but very difficult to differentiate. 5. Syphilis - RPR 1:128. He has never been diagnosed in the past nor treated. He was concfused because he has not been sexually active recently, however I explained syphilis can be dormant for many years. strongly suspect neurosyphilis. Discussed with Dr. Hall, ordered LP with VDRL and FTA-ABS from CSF, as well as Crypto Ag (low likelihood of Crypto now with negative serum Ag). If neurosyphilsi present will need 2 weeks of IV penicillin, if not would treat with IM penicillin x 3 over 3 weeks. Recs: - CD4 count (ordered) - viral load (ordered) - Cryptococcus serum antigen (negative) - pulmonology consult for bronch - please obtain bacterial, fungal cultures, PJP PCR (please obtain) - histoplasmosis/blastomycosis urine antibodies (ordered) - Fungitell (ordered) - 3x AFB cultures spaced 8 hours apart to rule out TB (ordered) - airborne isolation pending negative smears (ordered) - hold off on ART pending investigation into opportunistic infections (primarily Crypto) - hepatitis C Ab (negative) - syphilis screen (ordered) - General surgery for skin biopsy (biopsy pending) - please send for path and Bartonella PCR (ordered PCR) - f/u LP and CSF VDRL and FTA-ABS as well as CSF Crypto Ag, culture, analysis. - Urine gonorrhea and chlamydia (ordered) Thank you for the consult, we will continue to follow. Renee Valentin MD [facility] ([facility]) M: [phone] O: [phone] F: [phone] Subjective Date of service: 11/14/18 Interval history: FEels improved today. Excited to get his health back on track. Objective - Exam Narrative Exam: General - Normal appearance, well developed, no acute distress Eyes - PERRLA, EOM intact ENT - Moist mucous membranes, no lymphadenopathy Neck - No noticeable or palpable swelling, redness or rash around throat or on face Lymph Nodes - No lymphadenopathy Cardiovascular - RRR no m/r/g, no JVD, no carotid bruits Lungs - Clear to auscultation, no use of accessory muscles, no crackles or wheezes. Skin - Diffuse lesions on trunk and extremities. Innumerable red nodules, with apprxomiately 20 re/purple plaques. Pearly papular lesions near eyelid. Abdomen - Normal bowel sounds, abdomen soft and nontender Extremities - No edema, cyanosis or clubbing Musculoskeletal - 5/5 strength, normal range of motion, no swollen or erythematous joints. Neurological - Alert and oriented x 3, CN 2-12 grossly intact. - Constitutional Vitals: Vital Signs Temp Pulse Resp BP Pulse Ox 97.6 F 93 H 19 133/82 98 11/14/18 11:08 11/14/18 11:08 11/14/18 11:08 11/14/18 11:08 11/14/18 11:08 Temperature -Last 24 Hours Temperature 97.6 F Temperature 98.9 F Temperature 99.0 F - Labs CBC & Chem 7: 11/14/18 14:06 11/13/18 06:11 Labs: Abnormal lab results 11/14/18 Range/Units 14:06 APTT 38.2 H (24.2-36.6) Sec.
[2018-11-15] MEDS: IPRATROPIUM/ALBUTEROL SULFATE 3 ML AMPUL.NEB IH SCH ×5 (10:07→20:06)
[2018-11-15] MEDS: FLUTICASONE PROPIONATE NASAL SPRAY 16 GM NS SCH (10:09)
[2018-11-15] MEDS: ENOXAPARIN 40 MG/0.4 ML INJ SUB-Q SCH (10:09)
[2018-11-15] MEDS: cefTRIAXone/NS 2 GM/100 ML 2 GM/100 ML BAG IV SCH (10:10)
[2018-11-15] MEDS: SODIUM CHLORIDE 0.9% 1000 ML 1,000 ML IV SCH (10:18)
[2018-11-15] MEDS: AZITHROMYCIN 500 MG in SODIUM CHLORIDE 0.9% 250ML 250 ML IV SCH (10:19)
[2018-11-15] MEDS: oxyCODONE /ACETAMINOPHEN 5-325MG TAB PO PRN ×2 (11:00→23:48)
--- NOTE | 2018-11-15 11:46 | Progress Note ---
Assessment and Plan Assessment and plan: Pneumonia - Patient is on IV azithromycin and ceftriaxone - Blood cultures NTD Multiple pulmonary nodules - Opportunistic infection VS malignancy - CT results noted - Pulmonary consulted for bronchoscopy and will be done saturday HIV/AIDS - ID consulted Molluscum contagiosum, Kaposi's sarcoma - Management per ID - Surgery did biopsy today RPR is positive - We'll be do LP to evaluated for neurosyphilis; ordered and will be done on Saturday DVT prophylaxis Disposition; continue inpatient care History Interval history: Patient was seen and evaluated this morning. Patient didn't have any complaints. Hospitalist Physical - Physical exam Narrative exam: Not in cardiopulmonary distress. The patient appeared well nourished and normally developed. Vital signs as documented. Head exam is unremarkable. No scleral icterus . Neck is without jugular venous distension, thyromegaly, or carotid bruits. Lungs are clear to auscultation. Cardiac exam reveals regular rate and Rhythm. Abdominal exam reveals normal bowel sounds, no masses, no organomegaly and no aortic enlargement. Extremities are nonedematous and both femoral and pedal pulses are normal. 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 No focal weakness. SKIN; molluscum contagiosum. Skin eruption all over. - Constitutional Vitals: Temp Pulse Resp BP Pulse Ox 98.3 F 71 20 103/54 98 11/15/18 05:58 11/15/18 05:58 11/15/18 05:58 11/15/18 05:58 11/15/18 05:58 Results - Labs CBC & Chem 7: 11/14/18 14:06 11/13/18 06:11 Labs: Laboratory Last Values WBC 4.2 K/mm3 (4.5-11.0) L 11/13/18 06:11 RBC 5.20 M/mm3 (3.65-5.03) H 11/13/18 06:11 Hgb 11.9 gm/dl (11.8-15.2) 11/13/18 06:11 Hct 37.6 % (35.5-45.6) 11/13/18 06:11 MCV 72 fl (84-94) L 11/13/18 06:11 MCH 23 pg (28-32) L 11/13/18 06:11 MCHC 32 % (32-34) 11/13/18 06:11 RDW 14.9 % (13.2-15.2) 11/13/18 06:11 Plt Count 151 K/mm3 (140-440) 11/14/18 14:06 Lymph % (Auto) [employer] 11/13/18 06:11 [place] % (Auto) [employer] 11/13/18 06:11 Eos % (Auto) [employer] 11/13/18 06:11 Baso % (Auto) [employer] 11/13/18 06:11 Lymph # [employer] 11/13/18 06:11 [place] # [employer] 11/13/18 06:11 Eos # [employer] 11/13/18 06:11 Baso # [employer] 11/13/18 06:11 Seg Neutrophils % [employer] 11/13/18 06:11 Seg Neutrophils # [employer] 11/13/18 06:11 PT 13.0 Sec. (12.2-14.9) 11/14/18 14:06 INR 1.01 (0.87-1.13) 11/14/18 14:06 APTT 38.2 Sec. (24.2-36.6) H 11/14/18 14:06 Sodium 136 mmol/L (137-145) L 11/13/18 06:11 Potassium 4.1 mmol/L (3.6-5.0) 11/13/18 06:11 Chloride 100.8 mmol/L (98-107) 11/13/18 06:11 Carbon Dioxide 26 mmol/L (22-30) 11/13/18 06:11 13 mmol/L 11/13/18 06:11 BUN 8 mg/dL (9-20) L 11/13/18 06:11 0.9 mg/dL (0.8-1.5) 11/13/18 06:11 Estimated GFR > 60 ml/min 11/13/18 06:11 9 % 11/13/18 06:11 Glucose 94 mg/dL (75-100) 11/13/18 06:11 5.5 % (4-6) 11/12/18 14:22 Lactic Acid 1.50 mmol/L (0.7-2.0) 11/12/18 15:22 Calcium 8.6 mg/dL (8.4-10.2) 11/13/18 06:11 0.30 mg/dL (0.1-1.2) 11/13/18 06:11 AST 56 units/L (5-40) H 11/13/18 06:11 ALT 36 units/L (7-56) 11/13/18 06:11 77 units/L (35-129) 11/13/18 06:11 8.9 g/dL (6.3-8.2) H 11/13/18 06:11 3.2 g/dL (3.9-5) L 11/13/18 06:11 0.6 % 11/13/18 06:11 RPR Titer 1:128 11/12/18 14:22 RPR Reactive (Nonreactive) 11/12/18 14:22 Non-reactive (NonReactive) 11/13/18 14:29 11/14/18 10:30 Active Medications - Current Medications Current Medications: Generic Name Dose Route Start Last Admin Trade Name Freq PRN Reason Stop Dose Admin Acetaminophen 650 mg 11/12/18 21:59 11/13/18 17:57 Tylenol PO 650 mg Q4H PRN Administration Pain MILD(1-3)/Fever >100.5/FALK Albuterol 2.5 mg 11/12/18 22:02 11/13/18 02:53 Proventil IH 2.5 mg Q4HRT PRN Administration Shortness Of Breath Albuterol/Ipratropium 1 ampul 11/13/18 08:00 11/15/18 10:07 Duoneb *Not For Prn Use* IH Not Given QIDRT WIN Enoxaparin Sodium 40 mg 11/13/18 10:00 11/15/18 10:09 Lovenox SUB-Q 40 mg QDAY WIN Administration Fluticasone Propionate 100 mcg 11/13/18 19:00 11/15/18 10:09 Flonase NS 100 mcg QDAY WIN Administration Hydromorphone HCl 0.5 mg 11/12/18 21:59 Dilaudid IV Q3H PRN Pain , Severe (7-10) Azithromycin 500 mg/ Sodium 250 mls @ 250 mls/hr 11/13/18 10:00 11/15/18 10:19 Chloride IV 250 mls/hr Q24HR WIN Administration Protocol Ceftriaxone Sodium 2 gm in 100 mls @ 200 mls/hr 11/13/18 10:00 11/15/18 10:10 Rocephin/Ns 2 Gm/100 Ml IV 200 mls/hr Q24HR WIN Administration Protocol Sodium Chloride 1,000 mls @ 75 mls/hr 11/13/18 08:00 11/15/18 10:18 Nacl 0.9% 1000 Ml IV 75 mls/hr DIRECT WIN Administration Ondansetron HCl 4 mg 11/12/18 21:59 Zofran IV Q8H PRN Nausea And Vomiting Oxycodone/Acetaminophen 1 tab 11/12/18 21:59 11/15/18 11:00 Percocet 5/325 PO 1 tab Q6H PRN Administration Pain, Moderate (4-6) Oxycodone/Acetaminophen 2 tab 11/14/18 13:09 11/14/18 16:40 Percocet 5/325 PO 2 tab ONCE PRN Administration Pain , Severe (7-10) Sodium Chloride 10 ml 11/12/18 22:00 11/15/18 10:11 Sodium Chloride Flush Syringe 10 Ml IV 10 ml BID WIN Administration Sodium Chloride 10 ml 11/12/18 21:59 Sodium Chloride Flush Syringe 10 Ml IV PRN PRN LINE FLUSH Nutrition/Malnutrition Assess - Dietary Evaluation Nutrition/Malnutrition Findings: Nutrition Notes Start: 11/13/18 09:49 Freq: Status: Active Protocol: Document 11/13/18 09:49 NAVID (Rec: 11/13/18 10:08 NAVID [id number]) Co-Sign 11/13/18 09:49 Nutrition Notes 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 Pt ate about 50% of breakfast because he stated he didn't like the food. Observed slight temporal muscle wasting. Pt agreed to try Ensure once daily. Burn Absent Trauma Absent Minimum of two criteria No #1 Nutrition Diagnosis Predicted suboptimal energy intake Etiology HIV As Evidenced by Signs and Symptoms 6% wt loss in 3 months Is patient on ventilator? No Is Patient Ambulatory and/or Out of Bed Yes REE-([facility]-ambulatory/OOB) [ 2061.969 NUTR.MSJOOB] Calculation Used for Recommendations [facility] Additional Notes Protein needs: 51g-63g/kg (0.8 -1g/kg) Fluid needs: 1ml/kcal Nutrition Intervention Change Diet Order: Continue current Add Supplement/Snack (indicate name/kcal Ensure Enlive daily /protein ) Provides kCal: 350 Provides Protein (gm) 20 Goal #1 Meet at least 75% of protein and energy needs via po and ONS intakes Anticipated Discharge Needs: Regular diet and ONS PRN Follow-Up By: 11/17/18 Additional Comments F/U po and ONS intakes
--- NOTE | 2018-11-15 13:56 | Progress Note ---
Assessment and Plan mp: 1. Cavitary lung lesion/pulm nodules, suspect OI 2. Skin rash, likely related to #1 3. HIV/AIDS 4. Chronic nicotine dependence, cigarettes 5. Sepsis Rec: 1. ABX and non-pulmonary work-up as outlined in ID note 2. S/p Punch biopsy of skin lesion; f/u pathology/cultures 3. Tentatively plan for bronch early next week; patient willing Subjective Date of service: 11/15/18 Interval history: No significant change. Objective Vital Signs - 12hr 11/15/18 11/15/18 11/15/18 05:58 11:42 12:35 Temperature 98.3 F 98.9 F Pulse Rate 71 77 Pulse Rate [ 78 Bilateral] Respiratory 20 18 Rate Respiratory 20 Rate [Bilateral ] Blood Pressure 103/54 118/79 O2 Sat by Pulse 98 99 Oximetry Constitutional: no acute distress, alert Eyes: non-icteric Neck: supple Effort: normal Ascultation: Bilateral: clear Cardiovascular: regular rate and rhythm (no mrg) Gastrointestinal: normoactive bowel sounds, soft, non-tender, non-distended Integumentary: rash (papular lesions) Extremities: no cyanosis, no edema, pink and warm Neurologic: normal mental status, non-focal exam, pupils equal and round, CN II- XII normal Psychiatric: mood appropriate, affect normal CBC and BMP: 11/14/18 14:06 11/13/18 06:11 ABG, PT/INR, D-dimer: PT/INR, D-dimer PT 13.0 Sec. (12.2-14.9) 11/14/18 14:06 INR 1.01 (0.87-1.13) 11/14/18 14:06 Abnormal lab findings: Abnormal Labs 11/12/18 11/12/18 11/13/18 14:22 14:22 06:11 WBC 4.2 L RBC 5.47 H 5.20 H MCV 72 L 72 L MCH 23 L 23 L [place] % (Auto) 7.4 H APTT Sodium 134 L Chloride 97.3 L BUN AST Total Protein Albumin 11/13/18 11/14/18 06:11 14:06 WBC RBC MCV MCH [place] % (Auto) APTT 38.2 H Sodium 136 L Chloride BUN 8 L AST 56 H Total Protein 8.9 H Albumin 3.2 L
--- NOTE | 2018-11-15 15:40 | Progress Note ---
Assessment and Plan - Patient Problems (1) Rash Current Visit: Yes Status: Acute Plan to address problem: Pt stable. s/p punch bx of back skin lesion. He appears to be doing well. There are no signs of any complications. Would leave bandage on for at least 1 week. follow up as necessary. There are no stitches that need to be removed. Please call with questions. Subjective Date of service: 11/15/18 Patient Reports: Positive: no new complaints Objective Vital Signs - 12hr 11/15/18 11/15/18 11/15/18 05:58 11:42 12:35 Temperature 98.3 F 98.9 F Pulse Rate 71 77 Pulse Rate [ 78 Bilateral] Respiratory 20 18 Rate Respiratory 20 Rate [Bilateral ] Blood Pressure 103/54 118/79 O2 Sat by Pulse 98 99 Oximetry - General physical appearance no distress, no pain - Eyes normal occular movement - Respiratory normal expansion, normal respiratory effort - Integumentary other (dressing is C/D/I) - Psychiatric oriented to time, oriented to person, oriented to place, speech is normal, memory intact - Labs 11/14/18 14:06 11/13/18 06:11
[2018-11-16] MEDS: SODIUM CHLORIDE 0.9% 1000 ML 1,000 ML IV SCH ×2 (02:23→17:50)
[2018-11-16] MEDS: ENOXAPARIN 40 MG/0.4 ML INJ SUB-Q SCH (09:06)
[2018-11-16] MEDS: cefTRIAXone/NS 2 GM/100 ML 2 GM/100 ML BAG IV SCH (09:07)
[2018-11-16] MEDS: AZITHROMYCIN 500 MG in SODIUM CHLORIDE 0.9% 250ML 250 ML IV SCH (09:07)
[2018-11-16] MEDS: FLUTICASONE PROPIONATE NASAL SPRAY 16 GM NS SCH (09:15)
[2018-11-16] MEDS: IPRATROPIUM/ALBUTEROL SULFATE 3 ML AMPUL.NEB IH SCH ×4 (10:31→21:08)
--- NOTE | 2018-11-16 13:00 | Progress Note ---
Assessment and Plan mp: 1. Cavitary lung lesion/pulm nodules, suspect OI 2. Skin rash, likely related to #1 3. HIV/AIDS 4. Chronic nicotine dependence, cigarettes 5. Sepsis Rec: 1. ABX and non-pulmonary work-up as outlined in ID note 2. S/p Punch biopsy of skin lesion; f/u pathology/cultures 3. Tentatively plan for bronch early next week; patient willing 4. Follow-up chest x-ray tomorrow Subjective Date of service: 11/16/18 Interval history: No significant change. Mild cough overall feeling better Objective Vital Signs - 12hr 11/16/18 11/16/18 04:26 12:00 Temperature 98.0 F Pulse Rate 72 Pulse Rate [ 82 Bilateral] Respiratory 20 Rate Respiratory 17 Rate [Bilateral ] Blood Pressure 121/78 O2 Sat by Pulse 100 Oximetry Constitutional: no acute distress, alert Eyes: non-icteric Neck: supple Effort: normal Ascultation: Bilateral: clear Cardiovascular: regular rate and rhythm (no mrg) Gastrointestinal: normoactive bowel sounds, soft, non-tender, non-distended Integumentary: rash (papular lesions) Extremities: no cyanosis, no edema, pink and warm Neurologic: normal mental status, non-focal exam, pupils equal and round, CN II- XII normal Psychiatric: mood appropriate, affect normal CBC and BMP: 11/14/18 14:06 11/13/18 06:11 ABG, PT/INR, D-dimer: PT/INR, D-dimer PT 13.0 Sec. (12.2-14.9) 11/14/18 14:06 INR 1.01 (0.87-1.13) 11/14/18 14:06 Abnormal lab findings: Abnormal Labs 11/12/18 11/12/18 11/13/18 14:22 14:22 06:11 WBC 4.2 L RBC 5.47 H 5.20 H MCV 72 L 72 L MCH 23 L 23 L [place] % (Auto) 7.4 H APTT Sodium 134 L Chloride 97.3 L BUN AST Total Protein Albumin 11/13/18 11/14/18 06:11 14:06 WBC RBC MCV MCH [place] % (Auto) APTT 38.2 H Sodium 136 L Chloride BUN 8 L AST 56 H Total Protein 8.9 H Albumin 3.2 L
[2018-11-16] MEDS: oxyCODONE /ACETAMINOPHEN 5-325MG TAB PO PRN ×2 (14:02→21:56)
--- NOTE | 2018-11-16 14:39 | Progress Note ---
Assessment and Plan Pneumonia - Patient is on IV azithromycin and ceftriaxone - Blood cultures NTD Multiple pulmonary nodules - Opportunistic infection VS malignancy - CT results noted - Pulmonary consulted for bronchoscopy and will be done Saturday HIV/AIDS - ID consulted Molluscum contagiosum, Kaposi's sarcoma - Management per ID - Surgery did biopsy today RPR is positive - We'll be do LP to evaluated for neurosyphilis; ordered and will be done on Sat DVT prophylaxis Disposition; continue inpatient care Subjective Date of service: 11/16/18 Principal diagnosis: pneumonia, HIV-AIDS, molluscum contagiosum Interval history: Laying quietly in bed. Itching has decreased. No fever. Objective - Exam Narrative Exam: Constitutional: Well-nourished well-developed. In no distress Head: Normocephalic atraumatic Eyes: Pupils are equal round and reactive to light Nose: No enlarged turbinates, no septal deviation. Mouth: Moist mucous membranes. Neck: Supple no thyromegaly. No bruit. No JVD Heart: Regular rate and rhythm, S1-S2 normal. No rubs murmurs or gallop Lungs: Clear to auscultation bilaterally. no rales or rhonchi Abdomen: Soft, nontender. Bowel sound are present. Extremities: No edema, no cyanosis, no clubbing. Neuro: Alert oriented Oriented x3. No focal sensory or motor deficit. Skin: Sacular rashes and all upper and lower extremities at various stages of healing Musculoskeletal system: No joint pain or swelling Hematological: No petechia or subcutanous hemorrhages. Immunological: No multiple septic spots on the skin Lymphatic: No generalized lymphadenopathy Psychiatry: Euthymic. Calm. - Constitutional Vitals: Vital Signs - 12hr 11/16/18 11/16/18 04:26 12:00 Temperature 98.0 F Pulse Rate 72 Pulse Rate [ 82 Bilateral] Respiratory 20 Rate Respiratory 17 Rate [Bilateral ] Blood Pressure 121/78 O2 Sat by Pulse 100 Oximetry - Labs CBC & Chem 7: 11/14/18 14:06 11/13/18 06:11
[2018-11-17] MEDS: SODIUM CHLORIDE 0.9% 1000 ML 1,000 ML IV SCH ×2 (05:54→21:13)
[2018-11-17 08:38] LABS: Hematocrit 35.6 % (35.5-45.6); Hemoglobin 11.4 gm/dl (11.8-15.2); Mean Corpuscular HGB Conc 32 % (32-34); Mean Corpuscular Volume 73 fl (84-94); Platelet Count 152 K/mm3 (140-440); Red Blood Count 4.88 M/mm3 (3.65-5.03); Red Cell Distribution Width 15.1 % (13.2-15.2)
[2018-11-17] MEDS: IPRATROPIUM/ALBUTEROL SULFATE 3 ML AMPUL.NEB IH SCH ×3 (08:42→20:41)
[2018-11-17 09:01] LABS: Alanine Aminotransferase 41 units/L (7-56); Albumin 3.1 g/dL (3.9-5); BUN/Creatinine Ratio 13; Blood Urea Nitrogen 9 mg/dL (9-20); Calcium 9.1 mg/dL (8.4-10.2); Hemolysis Index 0
--- NOTE | 2018-11-17 09:02 | Progress Note ---
Assessment and Plan - Patient Problems (1) Meningoencephalitis Current Visit: Yes Status: Acute (2) Abnormal chest x-ray Current Visit: Yes Status: Acute (3) HIV (human immunodeficiency virus infection) Current Visit: Yes Status: Acute Qualifiers: HIV symptom status: symptomatic Qualified Code(s): B20 - Human immunodeficiency virus [HIV] disease Subjective Principal diagnosis: pneumonia, HIV-AIDS, molluscum contagiosum Interval history: feels better for LP today Objective Vital Signs - 12hr 11/16/18 11/16/18 11/16/18 21:11 21:46 21:56 Temperature 98.4 F Pulse Rate 100 H Pulse Rate [ 105 H Bilateral] Respiratory 20 18 Rate Respiratory 18 Rate [Bilateral ] Blood Pressure 127/70 O2 Sat by Pulse 97 Oximetry 11/16/18 11/16/18 11/17/18 22:00 22:56 05:06 Temperature 98.0 F Pulse Rate 74 Pulse Rate [ Bilateral] Respiratory 18 20 Rate Respiratory Rate [Bilateral ] Blood Pressure 96/54 O2 Sat by Pulse 98 99 Oximetry Constitutional: no acute distress, alert Eyes: non-icteric Neck: supple Effort: normal Ascultation: Bilateral: clear Cardiovascular: regular rate and rhythm (no mrg) Gastrointestinal: normoactive bowel sounds, soft, non-tender, non-distended Integumentary: rash (papular lesions) Extremities: no cyanosis, no edema, pink and warm Neurologic: normal mental status, non-focal exam, pupils equal and round, CN II- XII normal Psychiatric: mood appropriate, affect normal CBC and BMP: 11/17/18 08:16 11/17/18 08:16 ABG, PT/INR, D-dimer: PT/INR, D-dimer PT 13.0 Sec. (12.2-14.9) 11/14/18 14:06 INR 1.01 (0.87-1.13) 11/14/18 14:06 Abnormal lab findings: Abnormal Labs 11/12/18 11/12/18 11/13/18 14:22 14:22 06:11 WBC 4.2 L RBC 5.47 H 5.20 H Hgb MCV 72 L 72 L MCH 23 L 23 L Amelia % (Auto) 7.4 H APTT Sodium 134 L Chloride 97.3 L BUN Creatinine AST Total Protein Albumin 09/02/1911/14/18 11/17/18 06:11 14:06 08:16 WBC 2.9 L RBC Hgb 11.4 L MCV 73 L MCH 23 L Amelia % (Auto) APTT 38.2 H Sodium 136 L Chloride BUN 8 L Creatinine AST 56 H Total Protein 8.9 H Albumin 3.2 L 11/17/18 08:16 WBC RBC Hgb MCV MCH Amelia % (Auto) APTT Sodium Chloride BUN Creatinine 0.7 L AST 63 H Total Protein 8.8 H Albumin 3.1 L
[2018-11-17] MEDS: cefTRIAXone/NS 2 GM/100 ML 2 GM/100 ML BAG IV SCH (10:44)
[2018-11-17] MEDS: ENOXAPARIN 40 MG/0.4 ML INJ SUB-Q SCH (10:45)
[2018-11-17] MEDS: AZITHROMYCIN 500 MG in SODIUM CHLORIDE 0.9% 250ML 250 ML IV SCH (10:45)
[2018-11-17] MEDS: oxyCODONE /ACETAMINOPHEN 5-325MG TAB PO PRN ×3 (10:45→19:48)
[2018-11-17 11:03] LABS: Band Neutrophils # (Manual) 0.2 K/mm3; Basophils % (Manual) 0 % (0.0-1.8); Eosinophils % (Manual) 0 % (0.0-4.3); Hypochromasia 1+; Total Cells Counted 100
[2018-11-17 11:04] LABS: Platelet Estimate Consistent w Auto
--- NOTE | 2018-11-17 11:27 | Progress Note ---
Assessment and Plan Assessment and plan: 38-year-old man with history of HIV who presented to the hospital with generalized rash, elevated papular lesions all over his body. He was also noted to have cough and congestion upon presentation Infectious disease Acute sepsis, pulmonary nodules in immunocompromised patient, HIV/AIDS, generalized rash, syphilisRPR 1: 128 Continue antibiotics per ID, to complete 7 days of broad-spectrum antibiotics, as well as penicillin for possible neurosyphilis, follow-up Airborne isolation Follow-up skin punch biopsy, follow-up remainder of tests which include CD4 count, viral load, he is still plasma doses/blastomycosis, Fungitell, CSF VDRL and FTA ABS, follow-up urine gonorrhea and chlamydia -Pulmonology input appreciated for possible bronchoscopy DVT prophylaxis Disposition; continue inpatient care History Interval history: Denies rash is improved. He had some headache after the lumbar puncture. Denies fevers denies shortness of breath denies diarrhea Hospitalist Physical - Physical exam Narrative exam: General.: Appears well, no distress, nontoxic HEENT: Moist mucous membranes, extraocular muscles intact, no lymphadenopathy Neck: supple Cardiac: S1-S2 heard Lungs: clear to auscultation bilaterally Abdomen: soft , nontender, nondistended, bowel sounds positive Extremities: no edema clubbing or cyanosis Skin: Rashes improved Neurologic: no gross focal deficits Psych: calm, and cooperative - Constitutional Vitals: Temp Pulse Resp BP Pulse Ox 98.0 F 84 18 96/54 98 11/17/18 05:06 11/17/18 09:00 11/17/18 09:00 11/17/18 05:06 11/17/18 10:27 Results - Labs CBC & Chem 7: 11/17/18 08:16 11/17/18 08:16 Labs: Laboratory Last Values WBC 2.9 K/mm3 (4.5-11.0) L 11/17/18 08:16 RBC 4.88 M/mm3 (3.65-5.03) 11/17/18 08:16 Hgb 11.4 gm/dl (11.8-15.2) L 11/17/18 08:16 Hct 35.6 % (35.5-45.6) 11/17/18 08:16 MCV 73 fl (84-94) L 11/17/18 08:16 MCH 23 pg (28-32) L 11/17/18 08:16 MCHC 32 % (32-34) 11/17/18 08:16 RDW 15.1 % (13.2-15.2) 11/17/18 08:16 Plt Count 152 K/mm3 (140-440) 11/17/18 08:16 Lymph % (Auto) General Clerk 11/13/18 06:11 [place] % (Auto) General Clerk 11/13/18 06:11 Eos % (Auto) General Clerk 11/13/18 06:11 Baso % (Auto) General Clerk 11/13/18 06:11 Lymph # General Clerk 11/13/18 06:11 [place] # General Clerk 11/13/18 06:11 Eos # General Clerk 11/13/18 06:11 Baso # General Clerk 11/13/18 06:11 Add Manual Diff Complete 11/17/18 08:16 Total Counted 100 11/17/18 08:16 Seg Neutrophils % General Clerk 11/13/18 06:11 Seg Neuts % (Manual) 53.0 % (40.0-70.0) 11/17/18 08:16 8.0 % 11/17/18 08:16 25.0 % (13.4-35.0) 11/17/18 08:16 Reactive Lymphs % (Man) 3.0 % 11/17/18 08:16 10.0 % (0.0-7.3) H 11/17/18 08:16 0 % (0.0-4.3) 11/17/18 08:16 0 % (0.0-1.8) 11/17/18 08:16 1.0 % 11/17/18 08:16 0 % 11/17/18 08:16 0 % 11/17/18 08:16 0 % 11/17/18 08:16 Nucleated RBC % Not Reportable 11/17/18 08:16 Seg Neutrophils # General Clerk 11/13/18 06:11 Seg Neutrophils # Man 1.5 K/mm3 (1.8-7.7) L 11/17/18 08:16 Band Neutrophils # 0.2 K/mm3 11/17/18 08:16 0.7 K/mm3 (1.2-5.4) L 11/17/18 08:16 Abs React Lymphs (Man) 0.1 K/mm3 11/17/18 08:16 0.3 K/mm3 (0.0-0.8) 11/17/18 08:16 0.0 K/mm3 (0.0-0.4) 11/17/18 08:16 0.0 K/mm3 (0.0-0.1) 11/17/18 08:16 0.0 K/mm3 11/17/18 08:16 0.0 K/mm3 11/17/18 08:16 0.0 K/mm3 11/17/18 08:16 Blast Cells # 0.0 K/mm3 11/17/18 08:16 WBC Morphology Not Reportable 11/17/18 08:16 Hypersegmented Neuts Not Reportable 11/17/18 08:16 Hyposegmented Neuts Not Reportable 11/17/18 08:16 Hypogranular Neuts Not Reportable 11/17/18 08:16 Not Reportable 11/17/18 08:16 Not Reportable 11/17/18 08:16 Not Reportable 11/17/18 08:16 Not Reportable 11/17/18 08:16 Not Reportable 11/17/18 08:16 Not Reportable 11/17/18 08:16 Consistent w auto 11/17/18 08:16 Not Reportable 11/17/18 08:16 Plt Clumps, EDTA Not Reportable 11/17/18 08:16 Not Reportable 11/17/18 08:16 Not Reportable 11/17/18 08:16 Not Reportable 11/17/18 08:16 Plt Morphology Comment Not Reportable 11/17/18 08:16 RBC Morphology Not Reportable 11/17/18 08:16 Dimorphic RBCs Not Reportable 11/17/18 08:16 Not Reportable 11/17/18 08:16 1+ 11/17/18 08:16 Not Reportable 11/17/18 08:16 Not Reportable 11/17/18 08:16 Not Reportable 11/17/18 08:16 Not Reportable 11/17/18 08:16 Not Reportable 11/17/18 08:16 Not Reportable 11/17/18 08:16 Not Reportable 11/17/18 08:16 Not Reportable 11/17/18 08:16 Not Reportable 11/17/18 08:16 Not Reportable 11/17/18 08:16 Not Reportable 11/17/18 08:16 Not Reportable 11/17/18 08:16 Not Reportable 11/17/18 08:16 Not Reportable 11/17/18 08:16 Not Reportable 11/17/18 08:16 Not Reportable 11/17/18 08:16 Not Reportable 11/17/18 08:16 Acanthocytes (Spur) Not Reportable 11/17/18 08:16 Rouleaux Not Reportable 11/17/18 08:16 Not Reportable 11/17/18 08:16 Not Reportable 11/17/18 08:16 Not Reportable 11/17/18 08:16 Not Reportable 11/17/18 08:16 Hem Pathologist Commnt No 11/17/18 08:16 PT 13.0 Sec. (12.2-14.9) 11/14/18 14:06 INR 1.01 (0.87-1.13) 11/14/18 14:06 APTT 38.2 Sec. (24.2-36.6) H 11/14/18 14:06 Sodium 141 mmol/L (137-145) 11/17/18 08:16 Potassium 4.5 mmol/L (3.6-5.0) 11/17/18 08:16 Chloride 104.8 mmol/L (98-107) 11/17/18 08:16 Carbon Dioxide 28 mmol/L (22-30) 11/17/18 08:16 13 mmol/L 11/17/18 08:16 BUN 9 mg/dL (9-20) 11/17/18 08:16 0.7 mg/dL (0.8-1.5) L 11/17/18 08:16 Estimated GFR > 60 ml/min 11/17/18 08:16 13 % 11/17/18 08:16 Glucose 84 mg/dL (75-100) 11/17/18 08:16 5.5 % (4-6) 11/12/18 14:22 Lactic Acid 1.50 mmol/L (0.7-2.0) 11/12/18 15:22 Calcium 9.1 mg/dL (8.4-10.2) 11/17/18 08:16 0.20 mg/dL (0.1-1.2) 11/17/18 08:16 AST 63 units/L (5-40) H 11/17/18 08:16 ALT 41 units/L (7-56) 11/17/18 08:16 72 units/L (35-129) 11/17/18 08:16 8.8 g/dL (6.3-8.2) H 11/17/18 08:16 3.1 g/dL (3.9-5) L 11/17/18 08:16 0.5 % 11/17/18 08:16 RPR Titer 1:128 11/12/18 14:22 RPR Reactive (Nonreactive) 11/12/18 14:22 Non-reactive (NonReactive) 11/13/18 14:29 11/14/18 10:30 Active Medications - Current Medications Current Medications: Generic Name Dose Route Start Last Admin Trade Name Freq PRN Reason Stop Dose Admin Acetaminophen 650 mg 11/12/18 21:59 11/13/18 17:57 Tylenol PO 650 mg Q4H PRN Administration Pain MILD(1-3)/Fever >100.5/FALK Albuterol 2.5 mg 11/12/18 22:02 11/13/18 02:53 Proventil IH 2.5 mg Q4HRT PRN Administration Shortness Of Breath Albuterol/Ipratropium 1 ampul 11/17/18 14:00 Duoneb *Not For Prn Use* IH TIDRT WIN Enoxaparin Sodium 40 mg 11/13/18 10:00 11/17/18 10:45 Lovenox SUB-Q 40 mg QDAY WIN Administration Fluticasone Propionate 100 mcg 11/13/18 19:00 11/16/18 09:15 Flonase NS 100 mcg QDAY WIN Administration Hydromorphone HCl 0.5 mg 11/12/18 21:59 Dilaudid IV Q3H PRN Pain , Severe (7-10) Azithromycin 500 mg/ Sodium 250 mls @ 250 mls/hr 11/13/18 10:00 11/17/18 10:45 Chloride IV 250 mls/hr Q24HR WIN Administration Protocol Ceftriaxone Sodium 2 gm in 100 mls @ 200 mls/hr 11/13/18 10:00 11/17/18 10:44 Rocephin/Ns 2 Gm/100 Ml IV 200 mls/hr Q24HR WIN Administration Protocol Sodium Chloride 1,000 mls @ 75 mls/hr 11/13/18 08:00 11/17/18 05:54 Nacl 0.9% 1000 Ml IV 75 mls/hr DIRECT WIN Administration Ondansetron HCl 4 mg 11/12/18 21:59 Zofran IV Q8H PRN Nausea And Vomiting Oxycodone/Acetaminophen 1 tab 11/12/18 21:59 11/17/18 10:45 Percocet 5/325 PO 1 tab Q6H PRN Administration Pain, Moderate (4-6) Oxycodone/Acetaminophen 2 tab 11/14/18 13:09 11/14/18 16:40 Percocet 5/325 PO 2 tab ONCE PRN Administration Pain , Severe (7-10) Sodium Chloride 10 ml 11/12/18 22:00 11/17/18 10:30 Sodium Chloride Flush Syringe 10 Ml IV 10 ml BID WIN Administration Sodium Chloride 10 ml 11/12/18 21:59 Sodium Chloride Flush Syringe 10 Ml IV PRN PRN LINE FLUSH Nutrition/Malnutrition Assess - Dietary Evaluation Nutrition/Malnutrition Findings: Nutrition Notes Start: 11/13/18 09:49 Freq: Status: Active Protocol: Document 11/13/18 09:49 NAVID (Rec: 11/13/18 10:08 NAVID [id number]) Co-Sign 11/13/18 09:49 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 Pt ate about 50% of breakfast because he stated he didn't like the food. Observed slight temporal muscle wasting. Pt agreed to try Ensure once daily. Burn Absent Trauma Absent Minimum of two criteria No #1 Nutrition Diagnosis Predicted suboptimal energy intake Etiology HIV As Evidenced by Signs and Symptoms 6% wt loss in 3 months Is patient on ventilator? No Is Patient Ambulatory and/or Out of Bed Yes [facility] [ NUTR.[id number]] Calculation Used for Recommendations Jonathan Lance Additional Notes Protein needs: 51g-63g/kg (0.8 -1g/kg) Fluid needs: 1ml/kcal Nutrition Intervention Change Diet Order: Continue current Add Supplement/Snack (indicate name/kcal Ensure Enlive daily /protein ) Provides kCal: 350 Provides Protein (gm) 20 Goal #1 Meet at least 75% of protein and energy needs via po and ONS intakes Anticipated Discharge Needs: Regular diet and ONS PRN Follow-Up By: 11/17/18 Additional Comments F/U po and ONS intakes
--- NOTE | 2018-11-17 11:44 | Fluoroscopy Report ---
LUMBAR PUNCTURE INDICATION : Neurosyphilis PROCEDURE: The risks (including but not limited to bleeding, infection, and spinal headache) and esme efits were explained to the patient and informed consent was obtained. A time out procedure was perf ormed. The procedure site was prepped and draped in the usual sterile fashion and lidocaine was used for local anesthesia. Under fluoroscopic guidance, a 22-gauge spinal needle was advanced into the L3-4 interlaminar space. 4 separate collection tubes of CSF were obtained with approximately 1.5 mL each. Samples were sent to the lab per the ordering physician specifications for further evaluation. The patient tolerated the procedure well with no complications. IMPRESSION: Successful lumbar puncture as outlined above. Fluoroscopic time: 1 Number of fluoroscopic images: 1 Signer Name: Frederick Carrillo Jr, MD Signed: 11/17/2018 11:40 AM Workstation Name: [id number]
--- NOTE | 2018-11-17 11:49 | Procedure Note ---
Date of procedure: 11/17/18 Pre-op diagnosis: neurosyphilis Post-op diagnosis: same Procedure: lumbar puncture under flouro Findings: none Anesthesia: local Surgeon: LAQUITA KAMINSKI Estimated blood loss: none Pathology: list (4 csf tubes) Condition: stable Disposition: floor
[2018-11-17 12:54] LABS: Appearance,CSF Clear; Red Blood Cell,CSF 294 /mm3 (0-0); White Blood Cell,CSF 30 /mm3 (1-10)
[2018-11-17 12:58] LABS: Basophils CSF 0 %; Total Cells Counted 100 /mm3
--- NOTE | 2018-11-17 13:24 | Progress Note ---
Assessment and Plan Cultures: BCx 11/12 - NGTD 11/13/2018 serum crypto Ag: negative Assessment: 38 yo M PMHx HIV/AIDS not on ART admitted with fevers, pneumonia. 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 1. Acute sepsis - present on admission with fevers, leukopenia, tachycardia. Likely secondary to pneumonia. 2. Pulmonary nodules in immunocompromised patient - broad differential in patient off ART. In the setting of cavitation must rule out TB. Continue airborne precautions until it is ruled out. Other differential: pulmonary Cryptococcosis (however serum Ag is negative), PJP though does not have classic imaging findings, Histoplasmosis/blastomycosis (have ordered urine antibodies for both), bacterial pneumonia, malignancy, MAC. Appreciate pulm recs with plans for bronch. 3. HIV/AIDS - will check CD4 and viral load to see current disease state. Would recommend holding off on starting ART until above ruled out. 4. Rash - ? bacillary angiomatosis vs Kaposi sarcoma vs disseminated Crypto (unlikely given negative Ag). S/P skin biopsy. In consideration with his pulmonary findings would lean toward [place], but very difficult to differentiate. 5. Syphilis - RPR 1:128. He has never been diagnosed in the past nor treated. He was confused because he has not been sexually active recently, however I explained syphilis can be dormant for many years. strongly suspect neurosyphilis, especially given titer, no previous history of treatment and his AIDS. LP shows 30 WBC all lymphocytes. CSF VDRL and FTA-Abs are pending but will take a while since they are sendouts. Meanwhile, best to treat as a case of neurosyphilis with 2 weeks of IV penicillin. Recs: - day 5 of Ceftriaxone and Azithromycin today, will d/c and switch to 2 PO doses of levofloxacin to complete 7 days - started IV penicillin G 24 million units daily as treatment of neurosyphilis - f/u CD4 count, viral load - f/u histoplasmosis/blastomycosis serologies - f/u Fungitell - awaiting remaining AFB smears - continue airborne isolation for now - f/u skin punch biopsy results - f/u CSF VDRL and FTA-ABS. - f/u Urine gonorrhea and chlamydia An Brock MD [facility] C: [phone] Subjective Date of service: 11/17/18 Principal diagnosis: pneumonia, HIV-AIDS, molluscum contagiosum Interval history: No fever. Breathing is better. Got LP done today. Objective - Exam Narrative Exam: General - Normal appearance, well developed, no acute distress Eyes - PERRLA, EOM intact ENT - Moist mucous membranes, no lymphadenopathy Neck - No noticeable or palpable swelling, redness or rash around throat or on face Lymph Nodes - No lymphadenopathy Cardiovascular - RRR no m/r/g, no JVD, no carotid bruits Lungs - Clear to auscultation, no use of accessory muscles, no crackles or wheezes. Skin - Diffuse lesions on trunk and extremities. Innumerable red nodules, with approx 20 purple plaques. Pearly papular lesions near eyelid. Abdomen - Normal bowel sounds, abdomen soft and nontender Extremities - No edema, cyanosis or clubbing Musculoskeletal - 5/5 strength, normal range of motion, no swollen or erythematous joints. Neurological - Alert and oriented x 3, CN 2-12 grossly intact. - Constitutional Vitals: Vital Signs Temp Pulse Resp BP Pulse Ox 98.9 F 97 H 16 130/73 96 11/17/18 13:01 11/17/18 13:01 11/17/18 13:01 11/17/18 13:01 11/17/18 13:01 Temperature -Last 24 Hours Temperature 98.9 F Temperature 98.0 F Temperature 98.4 F - Labs CBC & Chem 7: 11/17/18 08:16 11/17/18 08:16 Labs: Abnormal lab results 11/17/18 11/17/18 Range/Units 08:16 08:16 WBC 2.9 L (4.5-11.0) K/mm3 Hgb 11.4 L (11.8-15.2) gm/dl MCV 73 L (84-94) fl MCH 23 L (28-32) pg Monocytes % (Manual) 10.0 H (0.0-7.3) % Seg Neutrophils # Man 1.5 L (1.8-7.7) K/mm3 Lymphocytes # (Manual) 0.7 L (1.2-5.4) K/mm3 Creatinine 0.7 L (0.8-1.5) mg/dL AST 63 H (5-40) units/L Total Protein 8.8 H (6.3-8.2) g/dL Albumin 3.1 L (3.9-5) g/dL
[2018-11-17] MEDS ORDERED: PENICILLIN G POTASSIUM 5 MIL UNITS INJ IV SCH (14:00)
[2018-11-17 14:10] LABS: Glucose,CSF 52 mg/dL
[2018-11-17] MEDS: levoFLOXacin 750 MG TAB PO SCH (15:19)
[2018-11-17] MEDS: FLUTICASONE PROPIONATE NASAL SPRAY 16 GM NS SCH (15:21)
[2018-11-17] MEDS: PENICILLIN G POTASSIUM 4 MIL.UNITS in SODIUM CHLORIDE 0.9% 50 ML IV SCH ×2 (16:28→21:13)
[2018-11-18] MEDS: PENICILLIN G POTASSIUM 4 MIL.UNITS in SODIUM CHLORIDE 0.9% 50 ML IV SCH ×6 (02:55→23:45)
--- NOTE | 2018-11-18 08:33 | XRay Report ---
CHEST 2 VIEWS INDICATION: Pulmonary nodules. COMPARISON: CT chest dated 11/13/2018 FINDINGS: Support devices: None. Heart: Within normal limits. Lungs/pleura: Masslike density in the lingula appears relatively stable measuring 4.2 cm in diameter on today's exam. Tiny nodular densities in the lung bases are poorly imaged on x-ray. No new lung opa city, pleural effusion or pneumothorax. Minor bibasilar atelectasis has developed. Additional findings: None. IMPRESSION: No significant change. Signer Name: Frederick Carrillo Jr, MD Signed: 11/18/2018 8:29 AM Workstation Name: [id number]
[2018-11-18] MEDS: IPRATROPIUM/ALBUTEROL SULFATE 3 ML AMPUL.NEB IH SCH ×3 (09:29→20:56)
[2018-11-18] MEDS: ONDANSETRON 4 MG/2 ML INJ IV PRN ×2 (09:49→18:25)
[2018-11-18] MEDS: ENOXAPARIN 40 MG/0.4 ML INJ SUB-Q SCH (09:49)
[2018-11-18] MEDS: oxyCODONE /ACETAMINOPHEN 5-325MG TAB PO PRN ×2 (09:54→18:32)
[2018-11-18] MEDS: levoFLOXacin 750 MG TAB PO SCH (09:55)
--- NOTE | 2018-11-18 12:58 | Progress Note ---
Assessment and Plan Assessment and plan: 38-year-old man with history of HIV who presented to the hospital with generalized rash, elevated papular lesions all over his body. He was also noted to have cough and congestion upon presentation Infectious disease Acute sepsis, pulmonary nodules in immunocompromised patient, HIV/AIDS, generalized rash, syphilisRPR 1: 128 Continue antibiotics per ID, to complete 7 days of broad-spectrum antibiotics, as well as penicillin for possible neurosyphilis, follow-up Airborne isolation Follow-up skin punch biopsy, follow-up remainder of tests which include CD4 count, viral load, he is still plasma doses/blastomycosis, Fungitell, CSF VDRL and FTA ABS, follow-up urine gonorrhea and chlamydia -Pulmonology input appreciated for possible bronchoscopy DVT prophylaxis Disposition; continue inpatient care History Interval history: Denies rash is improved. He had some headache after the lumbar puncture. Denies fevers denies shortness of breath denies diarrhea Hospitalist Physical - Physical exam Narrative exam: General.: Appears well, no distress, nontoxic HEENT: Moist mucous membranes, extraocular muscles intact, no lymphadenopathy Neck: supple Cardiac: S1-S2 heard Lungs: clear to auscultation bilaterally Abdomen: soft , nontender, nondistended, bowel sounds positive Extremities: no edema clubbing or cyanosis Skin: Rashes improved Neurologic: no gross focal deficits Psych: calm, and cooperative - Constitutional Vitals: Temp Pulse Resp BP Pulse Ox 98.6 F 86 18 118/69 98 11/18/18 05:58 11/18/18 05:58 11/18/18 05:58 11/18/18 05:58 11/18/18 05:58 Results - Labs CBC & Chem 7: 11/17/18 08:16 11/17/18 08:16 Labs: Laboratory Last Values WBC 2.9 K/mm3 (4.5-11.0) L 11/17/18 08:16 RBC 4.88 M/mm3 (3.65-5.03) 11/17/18 08:16 Hgb 11.4 gm/dl (11.8-15.2) L 11/17/18 08:16 Hct 35.6 % (35.5-45.6) 11/17/18 08:16 MCV 73 fl (84-94) L 11/17/18 08:16 MCH 23 pg (28-32) L 11/17/18 08:16 MCHC 32 % (32-34) 11/17/18 08:16 RDW 15.1 % (13.2-15.2) 11/17/18 08:16 Plt Count 152 K/mm3 (140-440) 11/17/18 08:16 Lymph % (Auto) Cafe Operator 11/13/18 06:11 [place] % (Auto) Cafe Operator 11/13/18 06:11 Eos % (Auto) Cafe Operator 11/13/18 06:11 Baso % (Auto) Cafe Operator 11/13/18 06:11 Lymph # Cafe Operator 11/13/18 06:11 [place] # Cafe Operator 11/13/18 06:11 Eos # Cafe Operator 11/13/18 06:11 Baso # Cafe Operator 11/13/18 06:11 Add Manual Diff Complete 11/17/18 08:16 Total Counted 100 11/17/18 08:16 Seg Neutrophils % Cafe Operator 11/13/18 06:11 Seg Neuts % (Manual) 53.0 % (40.0-70.0) 11/17/18 08:16 8.0 % 11/17/18 08:16 25.0 % (13.4-35.0) 11/17/18 08:16 Reactive Lymphs % (Man) 3.0 % 11/17/18 08:16 10.0 % (0.0-7.3) H 11/17/18 08:16 0 % (0.0-4.3) 11/17/18 08:16 0 % (0.0-1.8) 11/17/18 08:16 1.0 % 11/17/18 08:16 0 % 11/17/18 08:16 0 % 11/17/18 08:16 0 % 11/17/18 08:16 Nucleated RBC % Not Reportable 11/17/18 08:16 Seg Neutrophils # Cafe Operator 11/13/18 06:11 Seg Neutrophils # Man 1.5 K/mm3 (1.8-7.7) L 11/17/18 08:16 Band Neutrophils # 0.2 K/mm3 11/17/18 08:16 0.7 K/mm3 (1.2-5.4) L 11/17/18 08:16 Abs React Lymphs (Man) 0.1 K/mm3 11/17/18 08:16 0.3 K/mm3 (0.0-0.8) 11/17/18 08:16 0.0 K/mm3 (0.0-0.4) 11/17/18 08:16 0.0 K/mm3 (0.0-0.1) 11/17/18 08:16 0.0 K/mm3 11/17/18 08:16 0.0 K/mm3 11/17/18 08:16 0.0 K/mm3 11/17/18 08:16 Blast Cells # 0.0 K/mm3 11/17/18 08:16 WBC Morphology Not Reportable 11/17/18 08:16 Hypersegmented Neuts Not Reportable 11/17/18 08:16 Hyposegmented Neuts Not Reportable 11/17/18 08:16 Hypogranular Neuts Not Reportable 11/17/18 08:16 Not Reportable 11/17/18 08:16 Not Reportable 11/17/18 08:16 Not Reportable 11/17/18 08:16 Not Reportable 11/17/18 08:16 Not Reportable 11/17/18 08:16 Not Reportable 11/17/18 08:16 Consistent w auto 11/17/18 08:16 Not Reportable 11/17/18 08:16 Plt Clumps, EDTA Not Reportable 11/17/18 08:16 Not Reportable 11/17/18 08:16 Not Reportable 11/17/18 08:16 Not Reportable 11/17/18 08:16 Plt Morphology Comment Not Reportable 11/17/18 08:16 RBC Morphology Not Reportable 11/17/18 08:16 Dimorphic RBCs Not Reportable 11/17/18 08:16 Not Reportable 11/17/18 08:16 1+ 11/17/18 08:16 Not Reportable 11/17/18 08:16 Not Reportable 11/17/18 08:16 Not Reportable 11/17/18 08:16 Not Reportable 11/17/18 08:16 Not Reportable 11/17/18 08:16 Not Reportable 11/17/18 08:16 Not Reportable 11/17/18 08:16 Not Reportable 11/17/18 08:16 Not Reportable 11/17/18 08:16 Not Reportable 11/17/18 08:16 Not Reportable 11/17/18 08:16 Not Reportable 11/17/18 08:16 Not Reportable 11/17/18 08:16 Not Reportable 11/17/18 08:16 Not Reportable 11/17/18 08:16 Not Reportable 11/17/18 08:16 Not Reportable 11/17/18 08:16 Acanthocytes (Spur) Not Reportable 11/17/18 08:16 Rouleaux Not Reportable 11/17/18 08:16 Not Reportable 11/17/18 08:16 Not Reportable 11/17/18 08:16 Not Reportable 11/17/18 08:16 Not Reportable 11/17/18 08:16 Hem Pathologist Commnt No 11/17/18 08:16 PT 13.0 Sec. (12.2-14.9) 11/14/18 14:06 INR 1.01 (0.87-1.13) 11/14/18 14:06 APTT 38.2 Sec. (24.2-36.6) H 11/14/18 14:06 Sodium 141 mmol/L (137-145) 11/17/18 08:16 Potassium 4.5 mmol/L (3.6-5.0) 11/17/18 08:16 Chloride 104.8 mmol/L (98-107) 11/17/18 08:16 Carbon Dioxide 28 mmol/L (22-30) 11/17/18 08:16 13 mmol/L 11/17/18 08:16 BUN 9 mg/dL (9-20) 11/17/18 08:16 0.7 mg/dL (0.8-1.5) L 11/17/18 08:16 Estimated GFR > 60 ml/min 11/17/18 08:16 13 % 11/17/18 08:16 Glucose 84 mg/dL (75-100) 11/17/18 08:16 5.5 % (4-6) 11/12/18 14:22 Lactic Acid 1.50 mmol/L (0.7-2.0) 11/12/18 15:22 Calcium 9.1 mg/dL (8.4-10.2) 11/17/18 08:16 0.20 mg/dL (0.1-1.2) 11/17/18 08:16 AST 63 units/L (5-40) H 11/17/18 08:16 ALT 41 units/L (7-56) 11/17/18 08:16 72 units/L (35-129) 11/17/18 08:16 8.8 g/dL (6.3-8.2) H 11/17/18 08:16 3.1 g/dL (3.9-5) L 11/17/18 08:16 0.5 % 11/17/18 08:16 Clear 11/14/18 Unknown Colorless 11/14/18 Unknown 30 /mm3 (1-10) 11/14/18 Unknown 294 /mm3 (0-0) 11/14/18 Unknown CSF Seg Neutrophils 0 % (0-6) 11/14/18 Unknown 99.0 % (40-80) 11/14/18 Unknown CSF Reactive Lymphs 0 % 11/14/18 Unknown 1.0 % (15-45) 11/14/18 Unknown 0 % 11/14/18 Unknown 0 % 11/14/18 Unknown C 11/14/18 Unknown 52 mg/dL 11/17/18 Unknown 35 mg/dL 11/17/18 Unknown RPR Titer 1:128 11/12/18 14:22 RPR Reactive (Nonreactive) 11/12/18 14:22 T.pallidum Ab (FTA-ABS) Reactive (Nonreactive) H 11/12/18 14:22 Non-reactive (NonReactive) 11/13/18 14:29 11/15/18 Unknown Active Medications - Current Medications Current Medications: Generic Name Dose Route Start Last Admin Trade Name [facility] PRN Reason Stop Dose Admin Acetaminophen 650 mg 11/12/18 21:59 11/13/18 17:57 Tylenol PO 650 mg Q4H PRN Administration Pain MILD(1-3)/Fever >100.5/FALK Albuterol 2.5 mg 11/12/18 22:02 11/13/18 02:53 Proventil IH 2.5 mg Q4HRT PRN Administration Shortness Of Breath Albuterol/Ipratropium 1 ampul 11/17/18 14:00 11/18/18 09:29 Duoneb *Not For Prn Use* IH Not Given TIDRT WIN Enoxaparin Sodium 40 mg 11/13/18 10:00 11/18/18 09:49 Lovenox SUB-Q 40 mg QDAY WIN Administration Fluticasone Propionate 100 mcg 11/13/18 19:00 11/17/18 15:21 Flonase NS 100 mcg QDAY WIN Administration Hydromorphone HCl 0.5 mg 11/12/18 21:59 11/18/18 08:43 Dilaudid IV 0.5 mg Q3H PRN Administration Pain , Severe (7-10) Sodium Chloride 1,000 mls @ 75 mls/hr 11/13/18 08:00 11/17/18 21:13 Nacl 0.9% 1000 Ml IV 75 mls/hr DIRECT WIN Administration Penicillin G Potassium 4 mil. 50 mls @ 100 mls/hr 11/17/18 16:00 11/18/18 12:58 units/ Sodium Chloride IV 100 mls/hr Q4HR WIN Administration Levofloxacin 750 mg 11/17/18 14:00 11/18/18 09:55 Levaquin PO 11/19/18 13:59 750 mg Q24HR WIN Administration Ondansetron HCl 4 mg 11/12/18 21:59 11/18/18 09:49 Zofran IV 4 mg Q8H PRN Administration Nausea And Vomiting Oxycodone/Acetaminophen 1 tab 11/12/18 21:59 11/18/18 09:54 Percocet 5/325 PO 1 tab Q6H PRN Administration Pain, Moderate (4-6) Oxycodone/Acetaminophen 2 tab 11/14/18 13:09 11/17/18 19:48 Percocet 5/325 PO 2 tab ONCE PRN Administration Pain , Severe (7-10) Sodium Chloride 10 ml 11/12/18 22:00 11/18/18 09:50 Sodium Chloride Flush Syringe 10 Ml IV 10 ml BID WIN Administration Sodium Chloride 10 ml 11/12/18 21:59 Sodium Chloride Flush Syringe 10 Ml IV PRN PRN LINE FLUSH Nutrition/Malnutrition Assess - Dietary Evaluation Nutrition/Malnutrition Findings: Nutrition Notes Start: 11/13/18 09:49 Freq: Status: Active Protocol: Document 11/17/18 15:14 OH (Rec: 11/17/18 15:18 OH [id number]) Nutrition Notes Initial or Follow up Reassessment Current Diet Regular diet Labs/Tests alb 3.2 Pertinent Medications Reviewed Height 5 ft 11 in Weight 66.7 kg [place] Body Weight (kg) 78.18 BMI 20.5 Subjective/Other Information f/u: Spoke w/RN who indicated pt has a very good appetite. no N/v noted. Burn Absent Trauma Absent Additional Notes Protein needs: 51g-63g/kg (0.8 -1g/kg) Fluid needs: 1ml/kcal Nutrition Intervention Change Diet Order: Regular Add Supplement/Snack (indicate name/kcal Ensure Enlive bid /protein ) Provides kCal: 700 Provides Protein (gm) 40 Anticipated Discharge Needs: Regular diet and ONS PRN Follow-Up By: 11/21/18 Additional Comments F/U po and ONS intakes
[2018-11-18] MEDS: FLUTICASONE PROPIONATE NASAL SPRAY 16 GM NS SCH (13:05)
[2018-11-18] MEDS: SODIUM CHLORIDE 0.9% 1000 ML 1,000 ML IV SCH (14:05)
--- NOTE | 2018-11-18 15:53 | Progress Note ---
Assessment and Plan Cultures: BCx 11/12 - NGTD 11/13/2018 serum crypto Ag: negative Fungitell <31 AFB smears x 2 negative Assessment: 38 yo M PMHx HIV/AIDS not on ART admitted with fevers, pneumonia. 1. Acute sepsis - present on admission with fevers, leukopenia, tachycardia. Likely secondary to pneumonia. Resolved 2. Pulmonary nodules in immunocompromised patient - broad differential in patient off ART. In the setting of cavitation must rule out TB. Continue airborne precautions until it is ruled out. Other differential: pulmonary Cryptococcosis (however serum Ag is negative), PJP though does not have classic imaging findings (seems unlikely with negative Fungitell), Histoplasmosis/blastomycosis (have ordered urine antibodies for both), bacterial pneumonia, malignancy, MAC. Appreciate pulm recs with plans for bronch. 3. HIV/AIDS - will check CD4 and viral load to see current disease state. Would recommend holding off on starting ART until above ruled out. 4. Rash - ? bacillary angiomatosis vs Kaposi sarcoma vs disseminated Crypto (unlikely given negative Ag). S/P skin biopsy. In consideration with his pulmonary findings would lean toward [place], but very difficult to differentiate. 5. Syphilis - RPR 1:128. He has never been diagnosed in the past nor treated. He was confused because he has not been sexually active recently, however I explained syphilis can be dormant for many years. strongly suspect neurosyphilis, especially given titer, no previous history of treatment and his AIDS. LP shows 30 WBC all lymphocytes. CSF VDRL and FTA-Abs are pending but will take a while since they are sendouts. Meanwhile, best to treat as a case of neurosyphilis with 2 weeks of IV penicillin. Recs: - last day of levofloxacin tomorrow to complete 7 days - continue IV penicillin G 24 million units daily as treatment of neurosyphilis D2 of 14 - f/u CD4 count, viral load - f/u histoplasmosis/blastomycosis serologies - awaiting 1 more AFB smear, continue airborne isolation for now - f/u skin punch biopsy results, prelim report - sent to [facility] for dermpath eval - f/u CSF VDRL and FTA-ABS - f/u Urine gonorrhea and chlamydia - start PO Bactrim DS daily for prophylaxis An Brock MD [facility] C: [phone] Subjective Date of service: 11/18/18 Principal diagnosis: pneumonia, HIV-AIDS, molluscum contagiosum Interval history: Feels better. No cough or shortness of breath. No fever. no new Rash. Objective - Exam Narrative Exam: General - Normal appearance, well developed, no acute distress Eyes - PERRLA, EOM intact. Face with few molluscum papules ENT - Moist mucous membranes, no lymphadenopathy Neck - No noticeable or palpable swelling, redness or rash around throat or on face. Lymph Nodes - No lymphadenopathy Cardiovascular - RRR no m/r/g, no JVD, no carotid bruits Lungs - Clear to auscultation, no use of accessory muscles, no crackles or wheezes. Skin - Diffuse lesions on trunk and extremities. Numerous red nodules, with approx 20 purple plaques. Pearly papular lesions near eyelid. Abdomen - Normal bowel sounds, abdomen soft and nontender Extremities - No edema, cyanosis or clubbing Musculoskeletal - 5/5 strength, normal range of motion, no swollen or erythemat ous joints. Neurological - Alert and oriented x 3, CN 2-12 grossly intact. - Constitutional Vitals: Vital Signs Temp Pulse Resp BP Pulse Ox 98.1 F 98 H 15 110/70 98 11/18/18 15:45 11/18/18 15:45 11/18/18 15:45 11/18/18 15:45 11/18/18 15:45 Temperature -Last 24 Hours Temperature 98.1 F Temperature 98.4 F Temperature 98.6 F Temperature 98.5 F Temperature 98.8 F - Labs CBC & Chem 7: 11/17/18 08:16 11/17/18 08:16 Labs: Abnormal lab results 11/12/18 Range/Units 14:22 T.pallidum Ab (FTA-ABS) Reactive H (Nonreactive)
[2018-11-18] MEDS: BUTALB/ACETAMINOPHEN/CAFFEINE TAB PO PRN (16:03)
[2018-11-18 19:34] LABS: HIV-1 RNA QN PCR 6.46 Log cps/mL
[2018-11-19] MEDS: oxyCODONE /ACETAMINOPHEN 5-325MG TAB PO PRN ×3 (00:42→21:48)
[2018-11-19] MEDS: PENICILLIN G POTASSIUM 4 MIL.UNITS in SODIUM CHLORIDE 0.9% 50 ML IV SCH ×6 (03:16→23:31)
[2018-11-19] MEDS: SODIUM CHLORIDE 0.9% 1000 ML 1,000 ML IV SCH ×2 (06:50→21:47)
[2018-11-19] MEDS: IPRATROPIUM/ALBUTEROL SULFATE 3 ML AMPUL.NEB IH SCH ×2 (08:01→20:50)
[2018-11-19] MEDS: levoFLOXacin 750 MG TAB PO SCH (09:47)
[2018-11-19] MEDS: ENOXAPARIN 40 MG/0.4 ML INJ SUB-Q SCH (09:47)
[2018-11-19] MEDS: FLUTICASONE PROPIONATE NASAL SPRAY 16 GM NS SCH (09:48)
[2018-11-19] MEDS: SULFAMETHOXAZOLE/TRIMETHOPRIM 800/160MG DS TAB PO SCH (09:48)
--- NOTE | 2018-11-19 10:42 | Progress Note ---
Assessment and Plan Assessment and plan: 38-year-old man with history of HIV who presented to the hospital with generalized rash, elevated papular lesions all over his body. He was also noted to have cough and congestion upon presentation Infectious disease Acute sepsis, pulmonary nodules in immunocompromised patient, HIV/AIDS, generalized rash, syphilisRPR 1: 128 Continue antibiotics per ID, to complete 7 days of broad-spectrum antibiotics, as well as penicillin for possible neurosyphilis, follow-up Airborne isolation Follow-up skin punch biopsy, follow-up remainder of tests which include CD4 count, viral load, he is still plasma doses/blastomycosis, Fungitell, CSF VDRL and FTA ABS, follow-up urine gonorrhea and chlamydia -Pulmonology input appreciated for possible bronchoscopy DVT prophylaxis Disposition; continue inpatient care History Interval history: rash is improved. Headache has resolved. Denies fevers denies shortness of breath denies diarrhea Hospitalist Physical - Physical exam Narrative exam: General.: Appears well, no distress, nontoxic HEENT: Moist mucous membranes, extraocular muscles intact, no lymphadenopathy Neck: supple Cardiac: S1-S2 heard Lungs: clear to auscultation bilaterally Abdomen: soft , nontender, nondistended, bowel sounds positive Extremities: no edema clubbing or cyanosis Skin: Rashes improved Neurologic: no gross focal deficits Psych: calm, and cooperative - Constitutional Vitals: Temp Pulse Resp BP Pulse Ox 98.4 F 90 16 103/48 97 11/19/18 05:45 11/19/18 08:01 11/19/18 08:01 11/19/18 05:45 11/19/18 08:17 Results - Labs CBC & Chem 7: 11/17/18 08:16 11/17/18 08:16 Labs: Laboratory Last Values WBC 2.9 K/mm3 (4.5-11.0) L 11/17/18 08:16 RBC 4.88 M/mm3 (3.65-5.03) 11/17/18 08:16 Hgb 11.4 gm/dl (11.8-15.2) L 11/17/18 08:16 Hct 35.6 % (35.5-45.6) 11/17/18 08:16 MCV 73 fl (84-94) L 11/17/18 08:16 MCH 23 pg (28-32) L 11/17/18 08:16 MCHC 32 % (32-34) 11/17/18 08:16 RDW 15.1 % (13.2-15.2) 11/17/18 08:16 Plt Count 152 K/mm3 (140-440) 11/17/18 08:16 Lymph % (Auto) Patient Svcs Mgr 11/13/18 06:11 [place] % (Auto) Patient Svcs Mgr 11/13/18 06:11 Eos % (Auto) Patient Svcs Mgr 11/13/18 06:11 Baso % (Auto) Patient Svcs Mgr 11/13/18 06:11 Lymph # Patient Svcs Mgr 11/13/18 06:11 [place] # Patient Svcs Mgr 11/13/18 06:11 Eos # Patient Svcs Mgr 11/13/18 06:11 Baso # Patient Svcs Mgr 11/13/18 06:11 Add Manual Diff Complete 11/17/18 08:16 Total Counted 100 11/17/18 08:16 Seg Neutrophils % Patient Svcs Mgr 11/13/18 06:11 Seg Neuts % (Manual) 53.0 % (40.0-70.0) 11/17/18 08:16 8.0 % 11/17/18 08:16 25.0 % (13.4-35.0) 11/17/18 08:16 Reactive Lymphs % (Man) 3.0 % 11/17/18 08:16 10.0 % (0.0-7.3) H 11/17/18 08:16 0 % (0.0-4.3) 11/17/18 08:16 0 % (0.0-1.8) 11/17/18 08:16 1.0 % 11/17/18 08:16 0 % 11/17/18 08:16 0 % 11/17/18 08:16 0 % 11/17/18 08:16 Nucleated RBC % Not Reportable 11/17/18 08:16 Seg Neutrophils # Patient Svcs Mgr 11/13/18 06:11 Seg Neutrophils # Man 1.5 K/mm3 (1.8-7.7) L 11/17/18 08:16 Band Neutrophils # 0.2 K/mm3 11/17/18 08:16 0.7 K/mm3 (1.2-5.4) L 11/17/18 08:16 Abs React Lymphs (Man) 0.1 K/mm3 11/17/18 08:16 0.3 K/mm3 (0.0-0.8) 11/17/18 08:16 0.0 K/mm3 (0.0-0.4) 11/17/18 08:16 0.0 K/mm3 (0.0-0.1) 11/17/18 08:16 0.0 K/mm3 11/17/18 08:16 0.0 K/mm3 11/17/18 08:16 0.0 K/mm3 11/17/18 08:16 Blast Cells # 0.0 K/mm3 11/17/18 08:16 WBC Morphology Not Reportable 11/17/18 08:16 Hypersegmented Neuts Not Reportable 11/17/18 08:16 Hyposegmented Neuts Not Reportable 11/17/18 08:16 Hypogranular Neuts Not Reportable 11/17/18 08:16 Not Reportable 11/17/18 08:16 Not Reportable 11/17/18 08:16 Not Reportable 11/17/18 08:16 Not Reportable 11/17/18 08:16 Not Reportable 11/17/18 08:16 Not Reportable 11/17/18 08:16 Consistent w auto 11/17/18 08:16 Not Reportable 11/17/18 08:16 Plt Clumps, EDTA Not Reportable 11/17/18 08:16 Not Reportable 11/17/18 08:16 Not Reportable 11/17/18 08:16 Not Reportable 11/17/18 08:16 Plt Morphology Comment Not Reportable 11/17/18 08:16 RBC Morphology Not Reportable 11/17/18 08:16 Dimorphic RBCs Not Reportable 11/17/18 08:16 Not Reportable 11/17/18 08:16 1+ 11/17/18 08:16 Not Reportable 11/17/18 08:16 Not Reportable 11/17/18 08:16 Not Reportable 11/17/18 08:16 Not Reportable 11/17/18 08:16 Not Reportable 11/17/18 08:16 Not Reportable 11/17/18 08:16 Not Reportable 11/17/18 08:16 Not Reportable 11/17/18 08:16 Not Reportable 11/17/18 08:16 Not Reportable 11/17/18 08:16 Not Reportable 11/17/18 08:16 Not Reportable 11/17/18 08:16 Not Reportable 11/17/18 08:16 Not Reportable 11/17/18 08:16 Not Reportable 11/17/18 08:16 Not Reportable 11/17/18 08:16 Not Reportable 11/17/18 08:16 Acanthocytes (Spur) Not Reportable 11/17/18 08:16 Rouleaux Not Reportable 11/17/18 08:16 Not Reportable 11/17/18 08:16 Not Reportable 11/17/18 08:16 Not Reportable 11/17/18 08:16 Not Reportable 11/17/18 08:16 Hem Pathologist Commnt No 11/17/18 08:16 PT 13.0 Sec. (12.2-14.9) 11/14/18 14:06 INR 1.01 (0.87-1.13) 11/14/18 14:06 APTT 38.2 Sec. (24.2-36.6) H 11/14/18 14:06 Sodium 141 mmol/L (137-145) 11/17/18 08:16 Potassium 4.5 mmol/L (3.6-5.0) 11/17/18 08:16 Chloride 104.8 mmol/L (98-107) 11/17/18 08:16 Carbon Dioxide 28 mmol/L (22-30) 11/17/18 08:16 13 mmol/L 11/17/18 08:16 BUN 9 mg/dL (9-20) 11/17/18 08:16 0.7 mg/dL (0.8-1.5) L 11/17/18 08:16 Estimated GFR > 60 ml/min 11/17/18 08:16 13 % 11/17/18 08:16 Glucose 84 mg/dL (75-100) 11/17/18 08:16 5.5 % (4-6) 11/12/18 14:22 Lactic Acid 1.50 mmol/L (0.7-2.0) 11/12/18 15:22 Calcium 9.1 mg/dL (8.4-10.2) 11/17/18 08:16 0.20 mg/dL (0.1-1.2) 11/17/18 08:16 AST 63 units/L (5-40) H 11/17/18 08:16 ALT 41 units/L (7-56) 11/17/18 08:16 72 units/L (35-129) 11/17/18 08:16 8.8 g/dL (6.3-8.2) H 11/17/18 08:16 3.1 g/dL (3.9-5) L 11/17/18 08:16 0.5 % 11/17/18 08:16 Clear 11/14/18 Unknown Colorless 11/14/18 Unknown 30 /mm3 (1-10) 11/14/18 Unknown 294 /mm3 (0-0) 11/14/18 Unknown CSF Seg Neutrophils 0 % (0-6) 11/14/18 Unknown 99.0 % (40-80) 11/14/18 Unknown CSF Reactive Lymphs 0 % 11/14/18 Unknown 1.0 % (15-45) 11/14/18 Unknown 0 % 11/14/18 Unknown 0 % 11/14/18 Unknown C 11/14/18 Unknown 52 mg/dL 11/17/18 Unknown 35 mg/dL 11/17/18 Unknown RPR Titer 1:128 11/12/18 14:22 RPR Reactive (Nonreactive) 11/12/18 14:22 T.pallidum Ab (FTA-ABS) Reactive (Nonreactive) H 11/12/18 14:22 C.trachomatis DNA (SDA) Not detected (Not Detected) 11/15/18 06:20 Non-reactive (NonReactive) 11/13/18 14:29 HIV-1 RNA PCR copies/ml [id number] Copies/mL H 11/13/18 14:29 6.46 Log cps/mL H 11/13/18 14:29 N.gonorrhoeae DNA (SDA) Not detected (Not Detected) 11/15/18 06:20 11/15/18 Unknown Flexitest 1 11/14/18 12:50 Active Medications - Current Medications Current Medications: Generic Name Dose Route Start Last Admin Trade Name Freq PRN Reason Stop Dose Admin Acetaminophen 650 mg 11/12/18 21:59 11/13/18 17:57 Tylenol PO 650 mg Q4H PRN Administration Pain MILD(1-3)/Fever >100.5/FALK Acetaminophen/Butalbital/Caffeine 2 tab 11/18/18 14:29 11/18/18 16:03 Fioricet PO 2 tab Q4H PRN Administration Headache Albuterol 2.5 mg 11/12/18 22:02 11/13/18 02:53 Proventil IH 2.5 mg Q4HRT PRN Administration Shortness Of Breath Albuterol/Ipratropium 1 ampul 11/19/18 20:00 Duoneb *Not For Prn Use* IH BIDRT WIN Enoxaparin Sodium 40 mg 11/13/18 10:00 11/19/18 09:47 Lovenox SUB-Q 40 mg QDAY WIN Administration Fluticasone Propionate 100 mcg 11/13/18 19:00 11/19/18 09:48 Flonase NS 100 mcg QDAY WIN Administration Hydromorphone HCl 0.5 mg 11/12/18 21:59 11/18/18 08:43 Dilaudid IV 0.5 mg Q3H PRN Administration Pain , Severe (7-10) Sodium Chloride 1,000 mls @ 75 mls/hr 11/13/18 08:00 11/19/18 06:50 Nacl 0.9% 1000 Ml IV 75 mls/hr DIRECT WIN Administration Penicillin G Potassium 4 mil. 50 mls @ 100 mls/hr 11/17/18 16:00 11/19/18 09:47 units/ Sodium Chloride IV 100 mls/hr Q4HR WIN Administration Levofloxacin 750 mg 11/17/18 14:00 11/19/18 09:47 Levaquin PO 11/19/18 13:59 750 mg Q24HR WIN Administration Ondansetron HCl 4 mg 11/12/18 21:59 11/18/18 18:25 Zofran IV 4 mg Q8H PRN Administration Nausea And Vomiting Oxycodone/Acetaminophen 1 tab 11/12/18 21:59 11/19/18 06:51 Percocet 5/325 PO 1 tab Q6H PRN Administration Pain, Moderate (4-6) Oxycodone/Acetaminophen 2 tab 11/14/18 13:09 11/17/18 19:48 Percocet 5/325 PO 2 tab ONCE PRN Administration Pain , Severe (7-10) Sodium Chloride 10 ml 11/12/18 22:00 11/19/18 09:49 Sodium Chloride Flush Syringe 10 Ml IV 10 ml BID WIN Administration Sodium Chloride 10 ml 11/12/18 21:59 Sodium Chloride Flush Syringe 10 Ml IV PRN PRN LINE FLUSH Trimethoprim/Sulfamethoxazole 1 each 11/19/18 10:00 11/19/18 09:48 Bactrim Ds PO 1 each DAILY WIN Administration Nutrition/Malnutrition Assess - Dietary Evaluation Nutrition/Malnutrition Findings: Nutrition Notes Start: 11/13/18 09:49 Freq: Status: Active Protocol: Document 11/17/18 15:14 OH (Rec: 11/17/18 15:18 OH [id number]) Nutrition Notes Initial or Follow up Reassessment Current Diet Regular diet Labs/Tests alb 3.2 Pertinent Medications Reviewed Height 5 ft 11 in Weight 66.7 kg [place] Body Weight (kg) 78.18 BMI 20.5 Subjective/Other Information f/u: Spoke w/RN who indicated pt has a very good appetite. no N/v noted. Burn Absent Trauma Absent Additional Notes Protein needs: 51g-63g/kg (0.8 -1g/kg) Fluid needs: 1ml/kcal Nutrition Intervention Change Diet Order: Regular Add Supplement/Snack (indicate name/kcal Ensure Enlive bid /protein ) Provides kCal: 700 Provides Protein (gm) 40 Anticipated Discharge Needs: Regular diet and ONS PRN Follow-Up By: 11/21/18 Additional Comments F/U po and ONS intakes
--- NOTE | 2018-11-19 12:40 | Event Note ---
Date: 11/19/18 Bronch scheduled for Saturday at 2pm. Please make NPO after midnight and check coags with tomorrows labs.
--- NOTE | 2018-11-19 13:28 | Progress Note ---
Assessment and Plan Cultures: BCx 11/12 - NGTD 11/13/2018 serum crypto Ag: negative Fungitell <31 Histoplasma Ur Ag: negative Blasto Ur Ag: Negative Bartonella PCR: Negative AFB smears x 2 negative Assessment: 38 yo M PMHx HIV/AIDS not on ART admitted with fevers, pneumonia. 1. Acute sepsis - present on admission with fevers, leukopenia, tachycardia. Likely secondary to pneumonia. Resolved. Completed pneumonia treatment. 2. Pulmonary nodules in immunocompromised patient: broad differential in patient off ART. In the setting of cavitation must rule out TB. Continue airborne precautions until it is ruled out. Other differential: pulmonary Cryptococcosis (however serum Ag is negative), PJP though does not have classic imaging findings (seems unlikely with negative Fungitell), Histoplasmosis/blastomycosis (Urine Ag negative for both). ? bacterial pneumonia v/s KS / malignancy. D/w Dr. Delgado, planned for bronchoscopy on Saturday. 3. HIV/AIDS - pending CD4. Viral load is high at 6 million. Would recommend hold ing off on starting ART until above ruled out. 4. Rash - ? bacillary angiomatosis vs Kaposi sarcoma vs disseminated Crypto (unlikely given negative Ag). S/P skin biopsy. In consideration with his p ulmonary findings would lean toward KS, but very difficult to differentiate. 5. Neurosyphilis - RPR 1:128. He has never been diagnosed in the past nor treated. He was confused because he has not been sexually active recently, however I explained syphilis can be dormant for many years. strongly suspect neurosyphilis, especially given titer, no previous history of treatment and his AIDS. LP shows 30 WBC all lymphocytes. CSF VDRL and FTA-Abs are pending but will take a while since they are sendouts. Meanwhile, best to treat as a case of neurosyphilis with 2 weeks of IV penicillin. Recs: - continue IV penicillin G 24 million units daily as treatment of neurosyphilis D3 of 14 - OK to place midline - d/c airborne when 3rd AFB smear is negative - f/u skin punch biopsy results, prelim report - sent to [facility] for dermpath eval - f/u CSF VDRL and FTA-ABS - continue PO Bactrim DS daily for prophylaxis - D/w Dr. Delgado, planned for bronchoscopy on Saturday, please send BAL for routine culture, AFB, fungal. Also watch for any vascular appearing KS type lesions and biopsy if possible D/w Dr. Gutiérrez. An Brock MD [facility] C: [phone] Subjective Date of service: 11/19/18 Principal diagnosis: pneumonia, HIV-AIDS, molluscum contagiosum Interval history: Complains of positional headache, post LP. No fever. Breathing is fine. Also rep orts some nausea. No diarrhea. Objective - Exam Narrative Exam: General - Normal appearance, well developed, no acute distress Eyes - PERRLA, EOM intact. Face with few molluscum papules ENT - Moist mucous membranes, no lymphadenopathy Neck - No noticeable or palpable swelling, redness or rash around throat or on face. Lymph Nodes - No lymphadenopathy Cardiovascular - RRR no m/r/g, no JVD, no carotid bruits Lungs - Clear to auscultation, no use of accessory muscles, no crackles or wheezes. Skin - Diffuse lesions on trunk and extremities. Numerous red nodules, with approx 20 purple plaques. Pearly papular lesions near eyelid. Abdomen - Normal bowel sounds, abdomen soft and nontender Extremities - No edema, cyanosis or clubbing Musculoskeletal - 5/5 strength, normal range of motion, no swollen or erythematous joints. Neurological - Alert and oriented x 3, CN 2-12 grossly intact. - Constitutional Vitals: Vital Signs Temp Pulse Resp BP Pulse Ox 98.1 F 78 20 100/59 97 11/19/18 11:24 11/19/18 11:24 11/19/18 11:24 11/19/18 11:24 11/19/18 11:24 Temperature -Last 24 Hours Temperature 98.1 F Temperature 98.4 F Temperature 99.5 F Temperature 98.1 F - Labs CBC & Chem 7: 11/17/18 08:16 11/17/18 08:16 Labs: Abnormal lab results 11/13/18 Range/Units 14:29 HIV-1 RNA PCR copies/ml [id number] H Copies/mL HIV-1 RNA (PCR) log 6.46 H Log cps/mL
[2018-11-19] MEDS: TEMAZEPAM 15 MG CAP PO PRN (23:31)
[2018-11-20] MEDS: PENICILLIN G POTASSIUM 4 MIL.UNITS in SODIUM CHLORIDE 0.9% 50 ML IV SCH ×6 (04:47→21:59)
[2018-11-20] MEDS: oxyCODONE /ACETAMINOPHEN 5-325MG TAB PO PRN ×2 (06:51→19:27)
[2018-11-20 07:41] LABS: CD19, Absolute SEE SCANNED RESULT; CD3, Absolute SEE SCANNED RESULT; CD3, Percentage SEE SCANNED RESULT; CD4, Absolute SEE SCANNED RESULT; CD4, Percentage SEE SCANNED RESULT; CD4/CD8 Ratio SEE SCANNED RESULT; CD8, Absolute SEE SCANNED RESULT; CD8, Percentage SEE SCANNED RESULT; Lymphocytes, Absolute SEE SCANNED RESULT
[2018-11-20] MEDS: IPRATROPIUM/ALBUTEROL SULFATE 3 ML AMPUL.NEB IH SCH ×2 (08:43→20:55)
[2018-11-20] MEDS ORDERED: LIDOCAINE (1%) 10 MG/1 ML VIAL 20 ML MDV ONE (08:48)
[2018-11-20] MEDS ORDERED: LIDOCAINE VISCOUS 2% 15 ML ORAL LIQD ONE (08:48)
[2018-11-20] MEDS ORDERED: SODIUM CHLORIDE 0.9% 1000 ML 1,000 ML IV SCH (09:00)
[2018-11-20] MEDS ORDERED: BENZOCAINE 20% TOP SPRAY 0.5 ML UNIT DOSE MM ONE (09:05)
[2018-11-20] MEDS ORDERED: PROPOFOL 200 MG/20 ML VIAL IV ONE ×2 (09:22)
--- NOTE | 2018-11-20 09:25 | Anesthesia Day of Surgery ---
Anesthesia Day of Surgery - Day of Surgery Patient Examined: Yes Patient H&P Reviewed: Yes Patient is NPO: Yes
--- NOTE | 2018-11-20 09:25 | Anesthesia Consultation ---
Anesthesia Consult and Med Hx Date of service: 11/20/18 - Airway Anesthetic Teeth Evaluation: Poor (some missing teeth) ROM Head & Neck: Adequate Mental/Hyoid Distance: Adequate Mallampati Class: Class II Intubation Access Assessment: Probably Good - Pre-Operative Health Status ASA Pre-Surgery Classification: ASA3 Proposed Anesthetic Plan: MAC - Pulmonary Hx Smoking: Yes Hx Respiratory Symptoms: Yes (pulmonary lesion) Hx Pneumonia: Yes - Cardiovascular System Hx Pacemaker: No Hx Internal Defibrillator: No - Central Nervous System Hx Psychiatric Problems: No - Other Systems Hx Cancer: No - Additional Comments Anesthesia Medical History Comments: AIDS
[2018-11-20] MEDS: SODIUM CHLORIDE 0.9% 1000 ML 1,000 ML IV SCH ×2 (09:36→17:11)
--- NOTE | 2018-11-20 09:54 | Procedure Note ---
Date of procedure: 11/20/18 Pre-op diagnosis: HIV with abnormal CXR/CT Post-op diagnosis: same Procedure: Bronch with bronchial washing After obtaining informed consent, patient brought to the GI suite and prepped. Left nare intubated with flexible bronchoscope after achieving adequate sedation with propofol. Mild difficulty passing through nares secondary to enlarge turbinates and blood with mucous. Cords seen and erythematous but good AB as well as AD duction. Lidocaine x2 used. Scoped passed through cords without difficulty. Erythema and blood seen throughout trachea, lidocaine x1 used. Lidocaine then passed into left main stem and then right. Airway inspection don e on both sides reveal normal anatomy with diffuse erythema and blood. No stigmata of kaposi's Sarcoma. Bronchial washing taken from Lingula segment. Bloody but no active bleeding. There does appear to be bleeding from above but this is from the nare from scope trauma. Sample taken and scope removed. No immediate post-op complications noted. Patient taken to recovery. Anesthesia: MAC Surgeon: LENI CONTRERAS Estimated blood loss: none Pathology: list (sent for routine path, PCP and CMV) Specimen disposition: to lab Condition: stable Disposition: floor
[2018-11-20] MEDS: ENOXAPARIN 40 MG/0.4 ML INJ SUB-Q SCH (10:00)
--- NOTE | 2018-11-20 12:34 | Progress Note ---
Assessment and Plan Cultures: BCx 11/12 - NGTD 11/13/2018 serum crypto Ag: negative Fungitell <31 Histoplasma Ur Ag: negative Blasto Ur Ag: Negative Bartonella PCR: Negative AFB smears x 2 negative Assessment: 38 yo M PMHx HIV/AIDS not on ART admitted with fevers, pneumonia. 1. Acute sepsis - present on admission with fevers, leukopenia, tachycardia. Likely secondary to pneumonia. Resolved. Completed pneumonia treatment. 2. Pulmonary nodules in immunocompromised patient: broad differential in patient off ART. In the setting of cavitation must rule out TB. Continue airborne precautions until it is ruled out. Other differential: pulmonary Cryptococcosis (however serum Ag is negative), PJP though does not have classic imaging findings (seems unlikely with negative Fungitell), Histoplasmosis/blastomycosis (Urine Ag negative for both). ? bacterial pneumonia v/s KS / malignancy. s/p bronchoscopy by Dr. Delgado 11/20/2018 - no visual KS type lesions seen. BAL sent. 3. HIV/AIDS - CD4: 124. Viral load is high at 6 million. Would recommend holding off on starting ART until above ruled out. On OI prophylaxis with Bactrim. 4. Rash - ? bacillary angiomatosis vs Kaposi sarcoma vs disseminated Crypto (unlikely given negative Ag). S/P skin biopsy. Could also be from syphilis. 5. Neurosyphilis - RPR 1:128. LP shows 30 WBC all lymphocytes. CSF VDRL also positive. Continue to treat neurosyphilis with 2 weeks of IV penicillin. Recs: - continue IV penicillin G 24 million units daily as treatment of Neurosyphilis D4 of 14 (ending 11/30/2018) - d/c airborne when 3rd AFB smear is negative or BAL AFB smear is negative - f/u skin punch biopsy results, prelim report - sent to [facility] for dermpath eval - continue PO Bactrim DS daily for prophylaxis - f/u BAL for routine culture, AFB, fungal - d/w case management for OPAT arrangements - will need to follow up outpatient to initiate HAART and follow up on the pending studies An Brock MD [facility] C: [phone] Subjective Date of service: 11/20/18 Principal diagnosis: pneumonia, HIV-AIDS, molluscum contagiosum Interval history: Still having some positional headaches. No fever. Had bronchoscopy done today. Objective - Exam Narrative Exam: General - Normal appearance, well developed, no acute distress Eyes - PERRLA, EOM intact. Face with few molluscum papules ENT - Moist mucous membranes, no lymphadenopathy Neck - No noticeable or palpable swelling, redness or rash around throat or on face. Lymph Nodes - No lymphadenopathy Cardiovascular - RRR no m/r/g, no JVD, no carotid bruits Lungs - Clear to auscultation, no use of accessory muscles, no crackles or wheezes. Skin - Diffuse lesions on trunk and extremities. Numerous red nodules, with approx 20 purple plaques. Pearly papular lesions near eyelid. Abdomen - Normal bowel sounds, abdomen soft and nontender Extremities - No edema, cyanosis or clubbing Musculoskeletal - 5/5 strength, normal range of motion, no swollen or erythematous joints. Psych - mood ok, affect normal. Neurological - Alert and oriented x 3, CN 2-12 grossly intact. - Constitutional Vitals: Vital Signs Temp Pulse Resp BP Pulse Ox 98.8 F 75 22 106/58 96 11/20/18 11:58 11/20/18 11:58 11/20/18 11:58 11/20/18 11:58 11/20/18 11:58 Temperature -Last 24 Hours Temperature 98.8 F Temperature 98 F Temperature 98.2 F Temperature 98.2 F Temperature 98.4 F Temperature 98.5 F Temperature 98.4 F - Labs CBC & Chem 7: 11/17/18 08:16 11/17/18 08:16 Labs: Abnormal lab results 11/17/18 Range/Units Unknown CSF VDRL Reactive 1:2 H (Nonreactive)
[2018-11-20] MEDS: SULFAMETHOXAZOLE/TRIMETHOPRIM 800/160MG DS TAB PO SCH (13:17)
--- NOTE | 2018-11-20 16:01 | Progress Note ---
Assessment and Plan Assessment and plan: 38-year-old man with history of HIV who presented to the hospital with generalized rash, elevated papular lesions all over his body. He was also noted to have cough and congestion upon presentation Infectious disease Acute sepsis, pulmonary nodules in immunocompromised patient, HIV/AIDS, generalized rash, syphilisRPR 1: 128 Continue antibiotics per ID,continue IV penicillin G 24 million units daily as treatment of Neurosyphilis for 14 days(ending 11/30/2018), midline has been placed, needs funding for IV antibiotics as patient is unfunded. Follow-up skin punch biopsy, follow-up remainder of tests which include CD4 count, viral load, he is still plasma doses/blastomycosis, Fungitell, CSF VDRL and FTA ABS, follow-up urine gonorrhea and chlamydia -Pulmonology input appreciated, status post bronchoscopy on 11/20, no stigmata of Kaposi's sarcoma,Erythema and blood noted in trachea and the right and left bronchi. DVT prophylaxis Disposition; continue inpatient care History Interval history: rash is improved. Headache has resolved. Denies fevers denies shortness of breath denies diarrhea Hospitalist Physical - Physical exam Narrative exam: General.: Appears well, no distress, nontoxic HEENT: Moist mucous membranes, extraocular muscles intact, no lymphadenopathy Neck: supple Cardiac: S1-S2 heard Lungs: clear to auscultation bilaterally Abdomen: soft , nontender, nondistended, bowel sounds positive Extremities: no edema clubbing or cyanosis Skin: Rashes improved Neurologic: no gross focal deficits Psych: calm, and cooperative - Constitutional Vitals: Temp Pulse Resp BP Pulse Ox 98.8 F 75 22 106/58 96 11/20/18 11:58 11/20/18 11:58 11/20/18 11:58 11/20/18 11:58 11/20/18 11:58 Results - Labs CBC & Chem 7: 11/17/18 08:16 11/17/18 08:16 Labs: Laboratory Last Values WBC 2.9 K/mm3 (4.5-11.0) L 11/17/18 08:16 RBC 4.88 M/mm3 (3.65-5.03) 11/17/18 08:16 Hgb 11.4 gm/dl (11.8-15.2) L 11/17/18 08:16 Hct 35.6 % (35.5-45.6) 11/17/18 08:16 MCV 73 fl (84-94) L 11/17/18 08:16 MCH 23 pg (28-32) L 11/17/18 08:16 MCHC 32 % (32-34) 11/17/18 08:16 RDW 15.1 % (13.2-15.2) 11/17/18 08:16 Plt Count 152 K/mm3 (140-440) 11/17/18 08:16 Lymph % (Auto) Commodity Merchant 11/13/18 06:11 Harmon % (Auto) Commodity Merchant 11/13/18 06:11 Eos % (Auto) Commodity Merchant 11/13/18 06:11 Baso % (Auto) Commodity Merchant 11/13/18 06:11 Lymph # Commodity Merchant 11/13/18 06:11 Harmon # Commodity Merchant 11/13/18 06:11 Eos # Commodity Merchant 11/13/18 06:11 Baso # Commodity Merchant 11/13/18 06:11 Add Manual Diff Complete 11/17/18 08:16 Total Counted 100 11/17/18 08:16 Seg Neutrophils % Commodity Merchant 11/13/18 06:11 Seg Neuts % (Manual) 53.0 % (40.0-70.0) 11/17/18 08:16 8.0 % 11/17/18 08:16 25.0 % (13.4-35.0) 11/17/18 08:16 Reactive Lymphs % (Man) 3.0 % 11/17/18 08:16 10.0 % (0.0-7.3) H 11/17/18 08:16 0 % (0.0-4.3) 11/17/18 08:16 0 % (0.0-1.8) 11/17/18 08:16 1.0 % 11/17/18 08:16 0 % 11/17/18 08:16 0 % 11/17/18 08:16 0 % 11/17/18 08:16 Nucleated RBC % Not Reportable 11/17/18 08:16 Seg Neutrophils # Commodity Merchant 11/13/18 06:11 Seg Neutrophils # Man 1.5 K/mm3 (1.8-7.7) L 11/17/18 08:16 Band Neutrophils # 0.2 K/mm3 11/17/18 08:16 Abs Lymphs (Manual) See scanned result 11/13/18 14:29 0.7 K/mm3 (1.2-5.4) L 11/17/18 08:16 Abs React Lymphs (Man) 0.1 K/mm3 11/17/18 08:16 0.3 K/mm3 (0.0-0.8) 11/17/18 08:16 0.0 K/mm3 (0.0-0.4) 11/17/18 08:16 0.0 K/mm3 (0.0-0.1) 11/17/18 08:16 0.0 K/mm3 11/17/18 08:16 0.0 K/mm3 11/17/18 08:16 0.0 K/mm3 11/17/18 08:16 Blast Cells # 0.0 K/mm3 11/17/18 08:16 WBC Morphology Not Reportable 11/17/18 08:16 Hypersegmented Neuts Not Reportable 11/17/18 08:16 Hyposegmented Neuts Not Reportable 11/17/18 08:16 Hypogranular Neuts Not Reportable 11/17/18 08:16 Not Reportable 11/17/18 08:16 Not Reportable 11/17/18 08:16 Not Reportable 11/17/18 08:16 Not Reportable 11/17/18 08:16 Not Reportable 11/17/18 08:16 Not Reportable 11/17/18 08:16 Consistent w auto 11/17/18 08:16 Not Reportable 11/17/18 08:16 Plt Clumps, EDTA Not Reportable 11/17/18 08:16 Not Reportable 11/17/18 08:16 Not Reportable 11/17/18 08:16 Not Reportable 11/17/18 08:16 Plt Morphology Comment Not Reportable 11/17/18 08:16 RBC Morphology Not Reportable 11/17/18 08:16 Dimorphic RBCs Not Reportable 11/17/18 08:16 Not Reportable 11/17/18 08:16 1+ 11/17/18 08:16 Not Reportable 11/17/18 08:16 Not Reportable 11/17/18 08:16 Not Reportable 11/17/18 08:16 Not Reportable 11/17/18 08:16 Not Reportable 11/17/18 08:16 Not Reportable 11/17/18 08:16 Not Reportable 11/17/18 08:16 Not Reportable 11/17/18 08:16 Not Reportable 11/17/18 08:16 Not Reportable 11/17/18 08:16 Not Reportable 11/17/18 08:16 Not Reportable 11/17/18 08:16 Not Reportable 11/17/18 08:16 Not Reportable 11/17/18 08:16 Not Reportable 11/17/18 08:16 Not Reportable 11/17/18 08:16 Not Reportable 11/17/18 08:16 Acanthocytes (Spur) Not Reportable 11/17/18 08:16 Rouleaux Not Reportable 11/17/18 08:16 Not Reportable 11/17/18 08:16 Not Reportable 11/17/18 08:16 Not Reportable 11/17/18 08:16 Not Reportable 11/17/18 08:16 Hem Pathologist Commnt No 11/17/18 08:16 PT 13.0 Sec. (12.2-14.9) 11/14/18 14:06 INR 1.01 (0.87-1.13) 11/14/18 14:06 APTT 38.2 Sec. (24.2-36.6) H 11/14/18 14:06 Sodium 141 mmol/L (137-145) 11/17/18 08:16 Potassium 4.5 mmol/L (3.6-5.0) 11/17/18 08:16 Chloride 104.8 mmol/L (98-107) 11/17/18 08:16 Carbon Dioxide 28 mmol/L (22-30) 11/17/18 08:16 13 mmol/L 11/17/18 08:16 BUN 9 mg/dL (9-20) 11/17/18 08:16 0.7 mg/dL (0.8-1.5) L 11/17/18 08:16 Estimated GFR > 60 ml/min 11/17/18 08:16 13 % 11/17/18 08:16 Glucose 84 mg/dL (75-100) 11/17/18 08:16 5.5 % (4-6) 11/12/18 14:22 Lactic Acid 1.50 mmol/L (0.7-2.0) 11/12/18 15:22 Calcium 9.1 mg/dL (8.4-10.2) 11/17/18 08:16 0.20 mg/dL (0.1-1.2) 11/17/18 08:16 AST 63 units/L (5-40) H 11/17/18 08:16 ALT 41 units/L (7-56) 11/17/18 08:16 72 units/L (35-129) 11/17/18 08:16 8.8 g/dL (6.3-8.2) H 11/17/18 08:16 3.1 g/dL (3.9-5) L 11/17/18 08:16 0.5 % 11/17/18 08:16 Fluid Color Red 11/20/18 Unknown Fluid Appearance Bloody 11/20/18 Unknown Fluid WBC 575 /mm3 11/20/18 Unknown Fluid RBC 35027 /mm3 11/20/18 Unknown Clear 11/14/18 Unknown Colorless 11/14/18 Unknown 30 /mm3 (1-10) 11/14/18 Unknown 294 /mm3 (0-0) 11/14/18 Unknown CSF Seg Neutrophils 0 % (0-6) 11/14/18 Unknown 99.0 % (40-80) 11/14/18 Unknown CSF Reactive Lymphs 0 % 11/14/18 Unknown 1.0 % (15-45) 11/14/18 Unknown 0 % 11/14/18 Unknown 0 % 11/14/18 Unknown C 11/14/18 Unknown 52 mg/dL 11/17/18 Unknown 35 mg/dL 11/17/18 Unknown Reactive 1:2 (Nonreactive) H 11/17/18 Unknown Lymph Enumerat CD4/CD8 See scanned result 11/13/18 14:29 % CD3 Cells See scanned result 11/13/18 14:29 See scanned result 11/13/18 14:29 % CD4 Cells See scanned result 11/13/18 14:29 See scanned result 11/13/18 14:29 % CD8 Cells See scanned result 11/13/18 14:29 See scanned result 11/13/18 14:29 % CD19 Cells See scanned result 11/13/18 14:29 See scanned result 11/13/18 14:29 RPR Titer 1:128 11/12/18 14:22 RPR Reactive (Nonreactive) 11/12/18 14:22 T.pallidum Ab (FTA-ABS) Reactive (Nonreactive) H 11/12/18 14:22 C.trachomatis DNA (SDA) Not detected (Not Detected) 11/15/18 06:20 Non-reactive (NonReactive) 11/13/18 14:29 HIV-1 RNA PCR copies/ml [id number] Copies/mL H 11/13/18 14:29 6.46 Log cps/mL H 11/13/18 14:29 N.gonorrhoeae DNA (SDA) Not detected (Not Detected) 11/15/18 06:20 11/15/18 Unknown Flexitest 1 11/14/18 12:50 Active Medications - Current Medications Current Medications: Generic Name Dose Route Start Last Admin Trade Name Freq PRN Reason Stop Dose Admin Acetaminophen 650 mg 11/12/18 21:59 11/13/18 17:57 Tylenol PO 650 mg Q4H PRN Administration Pain MILD(1-3)/Fever >100.5/FALK Acetaminophen/Butalbital/Caffeine 2 tab 11/18/18 14:29 11/18/18 16:03 Fioricet PO 2 tab Q4H PRN Administration Headache Albuterol 2.5 mg 11/12/18 22:02 11/13/18 02:53 Proventil IH 2.5 mg Q4HRT PRN Administration Shortness Of Breath Albuterol/Ipratropium 1 ampul 11/19/18 20:00 11/20/18 08:43 Duoneb *Not For Prn Use* IH Not Given BIDRT WIN Enoxaparin Sodium 40 mg 11/13/18 10:00 11/20/18 10:00 Lovenox SUB-Q Not Given QDAY WIN Fluticasone Propionate 100 mcg 11/13/18 19:00 11/19/18 09:48 Flonase NS 100 mcg QDAY WIN Administration Hydromorphone HCl 0.5 mg 11/12/18 21:59 11/18/18 08:43 Dilaudid IV 0.5 mg Q3H PRN Administration Pain , Severe (7-10) Sodium Chloride 1,000 mls @ 75 mls/hr 11/13/18 08:00 11/20/18 09:36 Nacl 0.9% 1000 Ml IV 75 mls/hr DIRECT WIN Administration Penicillin G Potassium 4 mil. 50 mls @ 100 mls/hr 11/17/18 16:00 11/20/18 13:17 units/ Sodium Chloride IV 100 mls/hr Q4HR WIN Administration Sodium Chloride 1,000 mls @ 50 mls/hr 11/20/18 09:00 Nacl 0.9% 1000 Ml IV 11/21/18 08:59 DIRECT WIN Ondansetron HCl 4 mg 11/12/18 21:59 11/18/18 18:25 Zofran IV 4 mg Q8H PRN Administration Nausea And Vomiting Oxycodone/Acetaminophen 1 tab 11/12/18 21:59 11/20/18 06:51 Percocet 5/325 PO 1 tab Q6H PRN Administration Pain, Moderate (4-6) Oxycodone/Acetaminophen 2 tab 11/14/18 13:09 11/17/18 19:48 Percocet 5/325 PO 2 tab ONCE PRN Administration Pain , Severe (7-10) Sodium Chloride 10 ml 11/12/18 22:00 11/20/18 13:25 Sodium Chloride Flush Syringe 10 Ml IV 10 ml BID WIN Administration Sodium Chloride 10 ml 11/12/18 21:59 Sodium Chloride Flush Syringe 10 Ml IV PRN PRN LINE FLUSH Temazepam 15 mg 11/19/18 22:16 11/19/18 23:31 Restoril PO 15 mg QHS PRN Administration Sleep Trimethoprim/Sulfamethoxazole 1 each 11/19/18 10:00 11/20/18 13:17 Bactrim Ds PO 1 each DAILY WIN Administration Nutrition/Malnutrition Assess - Dietary Evaluation Nutrition/Malnutrition Findings: Nutrition Notes Start: 11/13/18 09:49 Freq: Status: Active Protocol: Document 11/17/18 15:14 OH (Rec: 11/17/18 15:18 OH [id number]) Nutrition Notes Initial or Follow up Reassessment Current Diet Regular diet Labs/Tests alb 3.2 Pertinent Medications Reviewed Height 5 ft 11 in Weight 66.7 kg [place] Body Weight (kg) 78.18 BMI 20.5 Subjective/Other Information f/u: Spoke w/RN who indicated pt has a very good appetite. no N/v noted. Burn Absent Trauma Absent Additional Notes Protein needs: 51g-63g/kg (0.8 -1g/kg) Fluid needs: 1ml/kcal Nutrition Intervention Change Diet Order: Regular Add Supplement/Snack (indicate name/kcal Ensure Enlive bid /protein ) Provides kCal: 700 Provides Protein (gm) 40 Anticipated Discharge Needs: Regular diet and ONS PRN Follow-Up By: 11/21/18 Additional Comments F/U po and ONS intakes
[2018-11-20 20:29] LABS: Total Cells Counted 100 /mm3
[2018-11-20] MEDS: TEMAZEPAM 15 MG CAP PO PRN (21:59)
[2018-11-21] MEDS: PENICILLIN G POTASSIUM 4 MIL.UNITS in SODIUM CHLORIDE 0.9% 50 ML IV SCH ×6 (01:56→21:52)
[2018-11-21] MEDS: IPRATROPIUM/ALBUTEROL SULFATE 3 ML AMPUL.NEB IH SCH ×2 (08:04→21:19)
[2018-11-21] MEDS: SULFAMETHOXAZOLE/TRIMETHOPRIM 800/160MG DS TAB PO SCH (10:30)
[2018-11-21] MEDS: ENOXAPARIN 40 MG/0.4 ML INJ SUB-Q SCH (10:31)
[2018-11-21] MEDS: oxyCODONE /ACETAMINOPHEN 5-325MG TAB PO PRN ×2 (12:00→18:35)
--- NOTE | 2018-11-21 13:12 | Progress Note ---
Assessment and Plan Assessment and plan: 38-year-old man with history of HIV who presented to the hospital with generalized rash, elevated papular lesions all over his body. He was also noted to have cough and congestion upon presentation Infectious disease Acute sepsis, pulmonary nodules in immunocompromised patient, HIV/AIDS, generalized rash, syphilisRPR 1: 128 Continue antibiotics per ID,continue IV penicillin G 24 million units daily as treatment of Neurosyphilis for 14 days(ending 11/30/2018), midline has been placed, needs funding for IV antibiotics as patient is unfunded. Follow-up skin punch biopsy, -Pulmonology input appreciated, status post bronchoscopy on 11/20, no stigmata of Kaposi's sarcoma,Erythema and blood noted in trachea and the right and left bronchi. -dc resp iso tomorrow if BAL afb is neg DVT prophylaxis Disposition; continue inpatient care dw cm, tentative dc tomorrow History Interval history: rash is improved. Headache has resolved. Denies fevers denies shortness of breath denies diarrhea Hospitalist Physical - Physical exam Narrative exam: General.: Appears well, no distress, nontoxic HEENT: Moist mucous membranes, extraocular muscles intact, no lymphadenopathy Neck: supple Cardiac: S1-S2 heard Lungs: clear to auscultation bilaterally Abdomen: soft , nontender, nondistended, bowel sounds positive Extremities: no edema clubbing or cyanosis Skin: Rashes improved Neurologic: no gross focal deficits Psych: calm, and cooperative - Constitutional Vitals: Temp Pulse Resp BP Pulse Ox 98.2 F 78 18 119/68 99 11/21/18 12:18 11/21/18 12:18 11/21/18 12:18 11/21/18 12:18 11/21/18 12:18 Results - Labs CBC & Chem 7: 11/17/18 08:16 11/17/18 08:16 Labs: Laboratory Last Values WBC 2.9 K/mm3 (4.5-11.0) L 11/17/18 08:16 RBC 4.88 M/mm3 (3.65-5.03) 11/17/18 08:16 Hgb 11.4 gm/dl (11.8-15.2) L 11/17/18 08:16 Hct 35.6 % (35.5-45.6) 11/17/18 08:16 MCV 73 fl (84-94) L 11/17/18 08:16 MCH 23 pg (28-32) L 11/17/18 08:16 MCHC 32 % (32-34) 11/17/18 08:16 RDW 15.1 % (13.2-15.2) 11/17/18 08:16 Plt Count 152 K/mm3 (140-440) 11/17/18 08:16 Lymph % (Auto) Esol Teacher Assistant 11/13/18 06:11 Weld % (Auto) Esol Teacher Assistant 11/13/18 06:11 Eos % (Auto) Esol Teacher Assistant 11/13/18 06:11 Baso % (Auto) Esol Teacher Assistant 11/13/18 06:11 Lymph # Esol Teacher Assistant 11/13/18 06:11 Weld # Esol Teacher Assistant 11/13/18 06:11 Eos # Esol Teacher Assistant 11/13/18 06:11 Baso # Esol Teacher Assistant 11/13/18 06:11 Add Manual Diff Complete 11/17/18 08:16 Total Counted 100 11/17/18 08:16 Seg Neutrophils % Esol Teacher Assistant 11/13/18 06:11 Seg Neuts % (Manual) 53.0 % (40.0-70.0) 11/17/18 08:16 8.0 % 11/17/18 08:16 25.0 % (13.4-35.0) 11/17/18 08:16 Reactive Lymphs % (Man) 3.0 % 11/17/18 08:16 10.0 % (0.0-7.3) H 11/17/18 08:16 0 % (0.0-4.3) 11/17/18 08:16 0 % (0.0-1.8) 11/17/18 08:16 1.0 % 11/17/18 08:16 0 % 11/17/18 08:16 0 % 11/17/18 08:16 0 % 11/17/18 08:16 Nucleated RBC % Not Reportable 11/17/18 08:16 Seg Neutrophils # Esol Teacher Assistant 11/13/18 06:11 Seg Neutrophils # Man 1.5 K/mm3 (1.8-7.7) L 11/17/18 08:16 Band Neutrophils # 0.2 K/mm3 11/17/18 08:16 Abs Lymphs (Manual) See scanned result 11/13/18 14:29 0.7 K/mm3 (1.2-5.4) L 11/17/18 08:16 Abs React Lymphs (Man) 0.1 K/mm3 11/17/18 08:16 0.3 K/mm3 (0.0-0.8) 11/17/18 08:16 0.0 K/mm3 (0.0-0.4) 11/17/18 08:16 0.0 K/mm3 (0.0-0.1) 11/17/18 08:16 0.0 K/mm3 11/17/18 08:16 0.0 K/mm3 11/17/18 08:16 0.0 K/mm3 11/17/18 08:16 Blast Cells # 0.0 K/mm3 11/17/18 08:16 WBC Morphology Not Reportable 11/17/18 08:16 Hypersegmented Neuts Not Reportable 11/17/18 08:16 Hyposegmented Neuts Not Reportable 11/17/18 08:16 Hypogranular Neuts Not Reportable 11/17/18 08:16 Not Reportable 11/17/18 08:16 Not Reportable 11/17/18 08:16 Not Reportable 11/17/18 08:16 Not Reportable 11/17/18 08:16 Not Reportable 11/17/18 08:16 Not Reportable 11/17/18 08:16 Consistent w auto 11/17/18 08:16 Not Reportable 11/17/18 08:16 Plt Clumps, EDTA Not Reportable 11/17/18 08:16 Not Reportable 11/17/18 08:16 Not Reportable 11/17/18 08:16 Not Reportable 11/17/18 08:16 Plt Morphology Comment Not Reportable 11/17/18 08:16 RBC Morphology Not Reportable 11/17/18 08:16 Dimorphic RBCs Not Reportable 11/17/18 08:16 Not Reportable 11/17/18 08:16 1+ 11/17/18 08:16 Not Reportable 11/17/18 08:16 Not Reportable 11/17/18 08:16 Not Reportable 11/17/18 08:16 Not Reportable 11/17/18 08:16 Not Reportable 11/17/18 08:16 Not Reportable 11/17/18 08:16 Not Reportable 11/17/18 08:16 Not Reportable 11/17/18 08:16 Not Reportable 11/17/18 08:16 Not Reportable 11/17/18 08:16 Not Reportable 11/17/18 08:16 Not Reportable 11/17/18 08:16 Not Reportable 11/17/18 08:16 Not Reportable 11/17/18 08:16 Not Reportable 11/17/18 08:16 Not Reportable 11/17/18 08:16 Not Reportable 11/17/18 08:16 Acanthocytes (Spur) Not Reportable 11/17/18 08:16 Rouleaux Not Reportable 11/17/18 08:16 Not Reportable 11/17/18 08:16 Not Reportable 11/17/18 08:16 Not Reportable 11/17/18 08:16 Not Reportable 11/17/18 08:16 Hem Pathologist Commnt No 11/17/18 08:16 PT 13.0 Sec. (12.2-14.9) 11/14/18 14:06 INR 1.01 (0.87-1.13) 11/14/18 14:06 APTT 38.2 Sec. (24.2-36.6) H 11/14/18 14:06 Sodium 141 mmol/L (137-145) 11/17/18 08:16 Potassium 4.5 mmol/L (3.6-5.0) 11/17/18 08:16 Chloride 104.8 mmol/L (98-107) 11/17/18 08:16 Carbon Dioxide 28 mmol/L (22-30) 11/17/18 08:16 13 mmol/L 11/17/18 08:16 BUN 9 mg/dL (9-20) 11/17/18 08:16 0.7 mg/dL (0.8-1.5) L 11/17/18 08:16 Estimated GFR > 60 ml/min 11/17/18 08:16 13 % 11/17/18 08:16 Glucose 84 mg/dL (75-100) 11/17/18 08:16 5.5 % (4-6) 11/12/18 14:22 Lactic Acid 1.50 mmol/L (0.7-2.0) 11/12/18 15:22 Calcium 9.1 mg/dL (8.4-10.2) 11/17/18 08:16 0.20 mg/dL (0.1-1.2) 11/17/18 08:16 AST 63 units/L (5-40) H 11/17/18 08:16 ALT 41 units/L (7-56) 11/17/18 08:16 72 units/L (35-129) 11/17/18 08:16 8.8 g/dL (6.3-8.2) H 11/17/18 08:16 3.1 g/dL (3.9-5) L 11/17/18 08:16 0.5 % 11/17/18 08:16 Fluid Color Red 11/20/18 Unknown Fluid Appearance Bloody 11/20/18 Unknown Fluid WBC 575 /mm3 11/20/18 Unknown Fluid RBC 21739 /mm3 11/20/18 Unknown Fluid Seg Neutrophils 94.0 % 11/20/18 Unknown Fluid Lymphocytes 5.0 % 11/20/18 Unknown Fluid Reactive Lymphs 0 % 11/20/18 Unknown Fluid Monocytes 1.0 % 11/20/18 Unknown Fluid Eosinophils 0 % 11/20/18 Unknown Fluid Basophils 0 % 11/20/18 Unknown Fluid Comment Diff performed 11/20/18 Unknown Clear 11/14/18 Unknown Colorless 11/14/18 Unknown 30 /mm3 (1-10) 11/14/18 Unknown 294 /mm3 (0-0) 11/14/18 Unknown CSF Seg Neutrophils 0 % (0-6) 11/14/18 Unknown 99.0 % (40-80) 11/14/18 Unknown CSF Reactive Lymphs 0 % 11/14/18 Unknown 1.0 % (15-45) 11/14/18 Unknown 0 % 11/14/18 Unknown 0 % 11/14/18 Unknown C 11/14/18 Unknown 52 mg/dL 11/17/18 Unknown 35 mg/dL 11/17/18 Unknown Reactive 1:2 (Nonreactive) H 11/17/18 Unknown Lymph Enumerat CD4/CD8 See scanned result 11/13/18 14:29 % CD3 Cells See scanned result 11/13/18 14:29 See scanned result 11/13/18 14:29 % CD4 Cells See scanned result 11/13/18 14:29 See scanned result 11/13/18 14:29 % CD8 Cells See scanned result 11/13/18 14:29 See scanned result 11/13/18 14:29 % CD19 Cells See scanned result 11/13/18 14:29 See scanned result 11/13/18 14:29 RPR Titer 1:128 11/12/18 14:22 RPR Reactive (Nonreactive) 11/12/18 14:22 T.pallidum Ab (FTA-ABS) Reactive (Nonreactive) H 11/12/18 14:22 C.trachomatis DNA (SDA) Not detected (Not Detected) 11/15/18 06:20 Non-reactive (NonReactive) 11/13/18 14:29 HIV-1 RNA PCR copies/ml [id number] Copies/mL H 11/13/18 14:29 6.46 Log cps/mL H 11/13/18 14:29 N.gonorrhoeae DNA (SDA) Not detected (Not Detected) 11/15/18 06:20 11/15/18 Unknown Flexitest 1 11/14/18 12:50 Active Medications - Current Medications Current Medications: Generic Name Dose Route Start Last Admin Trade Name Freq PRN Reason Stop Dose Admin Acetaminophen 650 mg 11/12/18 21:59 11/13/18 17:57 Tylenol PO 650 mg Q4H PRN Administration Pain MILD(1-3)/Fever >100.5/FALK Acetaminophen/Butalbital/Caffeine 2 tab 11/18/18 14:29 11/18/18 16:03 Fioricet PO 2 tab Q4H PRN Administration Headache Albuterol 2.5 mg 11/12/18 22:02 11/13/18 02:53 Proventil IH 2.5 mg Q4HRT PRN Administration Shortness Of Breath Albuterol/Ipratropium 1 ampul 11/19/18 20:00 11/21/18 08:04 Duoneb *Not For Prn Use* IH Not Given BIDRT WIN Enoxaparin Sodium 40 mg 11/13/18 10:00 11/21/18 10:31 Lovenox SUB-Q 40 mg QDAY WIN Administration Fluticasone Propionate 100 mcg 11/13/18 19:00 11/19/18 09:48 Flonase NS 100 mcg QDAY WIN Administration Hydromorphone HCl 0.5 mg 11/12/18 21:59 11/18/18 08:43 Dilaudid IV 0.5 mg Q3H PRN Administration Pain , Severe (7-10) Sodium Chloride 1,000 mls @ 75 mls/hr 11/13/18 08:00 11/20/18 17:11 Nacl 0.9% 1000 Ml IV 75 mls/hr DIRECT WIN Administration Penicillin G Potassium 4 mil. 50 mls @ 100 mls/hr 11/17/18 16:00 11/21/18 11:35 units/ Sodium Chloride IV 100 mls/hr Q4HR WIN Administration Ondansetron HCl 4 mg 11/12/18 21:59 11/18/18 18:25 Zofran IV 4 mg Q8H PRN Administration Nausea And Vomiting Oxycodone/Acetaminophen 1 tab 11/12/18 21:59 11/20/18 19:27 Percocet 5/325 PO 1 tab Q6H PRN Administration Pain, Moderate (4-6) Oxycodone/Acetaminophen 2 tab 11/14/18 13:09 11/17/18 19:48 Percocet 5/325 PO 2 tab ONCE PRN Administration Pain , Severe (7-10) Sodium Chloride 10 ml 11/12/18 22:00 11/21/18 10:31 Sodium Chloride Flush Syringe 10 Ml IV 10 ml BID WIN Administration Sodium Chloride 10 ml 11/12/18 21:59 Sodium Chloride Flush Syringe 10 Ml IV PRN PRN LINE FLUSH Temazepam 15 mg 11/19/18 22:16 11/20/18 21:59 Restoril PO 15 mg QHS PRN Administration Sleep Trimethoprim/Sulfamethoxazole 1 each 11/19/18 10:00 11/21/18 10:30 Bactrim Ds PO 1 each DAILY WIN Administration Nutrition/Malnutrition Assess - Dietary Evaluation Nutrition/Malnutrition Findings: Nutrition Notes Start: 11/13/18 09:49 Freq: Status: Active Protocol: Document 11/17/18 15:14 OH (Rec: 11/17/18 15:18 OH [id number]) Nutrition Notes Initial or Follow up Reassessment Current Diet Regular diet Labs/Tests alb 3.2 Pertinent Medications Reviewed Height 5 ft 11 in Weight 66.7 kg [place] Body Weight (kg) 78.18 BMI 20.5 Subjective/Other Information f/u: Spoke w/RN who indicated pt has a very good appetite. no N/v noted. Burn Absent Trauma Absent Additional Notes Protein needs: 51g-63g/kg (0.8 -1g/kg) Fluid needs: 1ml/kcal Nutrition Intervention Change Diet Order: Regular Add Supplement/Snack (indicate name/kcal Ensure Enlive bid /protein ) Provides kCal: 700 Provides Protein (gm) 40 Anticipated Discharge Needs: Regular diet and ONS PRN Follow-Up By: 11/21/18 Additional Comments F/U po and ONS intakes
[2018-11-21] MEDS: FLUTICASONE PROPIONATE NASAL SPRAY 16 GM NS SCH (14:02)
[2018-11-21] MEDS: SODIUM CHLORIDE 0.9% 1000 ML 1,000 ML IV SCH (14:55)
[2018-11-21] MEDS: BUTALB/ACETAMINOPHEN/CAFFEINE TAB PO PRN (14:55)
--- NOTE | 2018-11-21 15:12 | Progress Note ---
Assessment and Plan Cultures: BCx 11/12 - NGTD 11/13/2018 serum crypto Ag: negative Fungitell <31 Histoplasma Ur Ag: negative Blasto Ur Ag: Negative Bartonella PCR: Negative AFB smears x 2 negative Assessment: 38 yo M PMHx HIV/AIDS not on ART admitted with fevers, pneumonia. 1. Acute sepsis - present on admission with fevers, leukopenia, tachycardia. Likely secondary to pneumonia. Resolved. Completed pneumonia treatment. 2. Pulmonary nodules in immunocompromised patient: broad differential in patient off ART. In the setting of cavitation must rule out TB. Continue airborne precautions until it is ruled out. Other differential: pulmonary Cryptococcosis (however serum Ag is negative), PJP though does not have classic imaging findings (seems unlikely with negative Fungitell), Histoplasmosis/blastomycosis (Urine Ag negative for both). ? bacterial pneumonia v/s KS / malignancy. s/p bronchoscopy by Dr. Delgado 11/20/2018 - no visual KS type lesions seen. BAL sent. 3. HIV/AIDS - CD4: 124. Viral load is high at 6 million. Would recommend holding off on starting ART until above ruled out. On OI prophylaxis with Bactrim. 4. Rash - ? bacillary angiomatosis vs Kaposi sarcoma vs disseminated Crypto (unlikely given negative Ag). S/P skin biopsy. Could also be from syphilis. 5. Neurosyphilis - RPR 1:128. LP shows 30 WBC all lymphocytes. CSF VDRL also positive. Continue to treat neurosyphilis with 2 weeks of IV penicillin. 6. Headache: post LP. If persists, ?consider blood patch. Recs: - continue IV penicillin G 24 million units daily as treatment of Neurosyphilis D5 of 14 (ending 11/30/2018) - d/c airborne when 3rd AFB smear is negative or BAL AFB smear is negative - f/u skin punch biopsy results, prelim report - sent to [facility] for dermpath eval - continue PO Bactrim DS daily for prophylaxis - f/u BAL for routine culture, AFB, fungal - d/w case management for OPAT arrangements, orders already placed - will need to follow up outpatient to initiate HAART and follow up on the pending studies (notified ID clinical biostatistician) An Brock MD [facility] C: [phone] Subjective Date of service: 11/21/18 Principal diagnosis: pneumonia, HIV-AIDS, molluscum contagiosum Interval history: No fever. Still having some headache post LP. Also complaining of mild back pain at LP site. Objective - Exam Narrative Exam: Physical Exam: Constitutional: Alert, cooperative. No acute distress Head, Ears, Nose: Normocephalic, atraumatic. External ears, nose normal Eyes: Conjunctivae/corneas clear. No icterus. No ptosis. Neck: Supple, no meningeal signs Oral: dentition fair, no thrush Cardiovascular: S1, S2 normal. Respiratory: Good air entry, clear to auscultation bilaterally GI: Soft, non-tender; bowel sounds normal. No peritoneal signs Musculoskeletal: No pedal edema, no cyanosis. Skin: several purple plaques + especially on lower extremities. Pearly papular l esions near eyelid. Hem/Lymphatic: No palpable cervical or supraclavicular nodes. No lymphangitis Psych: Mood ok. Affect normal Neurological: Awake, alert, oriented. No gross abnormality - Constitutional Vitals: Vital Signs Temp Pulse Resp BP Pulse Ox 98.2 F 78 18 119/68 99 11/21/18 12:18 11/21/18 12:18 11/21/18 12:18 11/21/18 12:18 11/21/18 12:18 Temperature -Last 24 Hours Temperature 98.2 F Temperature 98.4 F Temperature 98.6 F Temperature 98.4 F - Labs CBC & Chem 7: 11/17/18 08:16 11/17/18 08:16
[2018-11-21] MEDS: TEMAZEPAM 15 MG CAP PO PRN (21:52)
[2018-11-22] MEDS: PENICILLIN G POTASSIUM 4 MIL.UNITS in SODIUM CHLORIDE 0.9% 50 ML IV SCH ×6 (02:15→22:45)
[2018-11-22] MEDS: oxyCODONE /ACETAMINOPHEN 5-325MG TAB PO PRN ×2 (08:36→20:51)
[2018-11-22] MEDS: ENOXAPARIN 40 MG/0.4 ML INJ SUB-Q SCH (09:44)
[2018-11-22] MEDS: SULFAMETHOXAZOLE/TRIMETHOPRIM 800/160MG DS TAB PO SCH (09:44)
[2018-11-22] MEDS: BUTALB/ACETAMINOPHEN/CAFFEINE TAB PO PRN ×2 (09:44→22:34)
[2018-11-22] MEDS: IPRATROPIUM/ALBUTEROL SULFATE 3 ML AMPUL.NEB IH SCH ×2 (09:44→20:03)
[2018-11-22] MEDS: FLUTICASONE PROPIONATE NASAL SPRAY 16 GM NS SCH (09:45)
[2018-11-22] MEDS: SODIUM CHLORIDE 0.9% 1000 ML 1,000 ML IV SCH (17:04)
[2018-11-22] MEDS: TEMAZEPAM 15 MG CAP PO PRN (22:45)
[2018-11-23] MEDS: PENICILLIN G POTASSIUM 4 MIL.UNITS in SODIUM CHLORIDE 0.9% 50 ML IV SCH ×6 (02:14→21:30)
[2018-11-23] MEDS: SODIUM CHLORIDE 0.9% 1000 ML 1,000 ML IV SCH ×2 (05:31→17:18)
[2018-11-23] MEDS: ONDANSETRON 4 MG/2 ML INJ IV PRN (07:27)
[2018-11-23] MEDS: IPRATROPIUM/ALBUTEROL SULFATE 3 ML AMPUL.NEB IH SCH ×2 (07:59→20:30)
[2018-11-23] MEDS: SULFAMETHOXAZOLE/TRIMETHOPRIM 800/160MG DS TAB PO SCH (11:09)
[2018-11-23] MEDS: FLUTICASONE PROPIONATE NASAL SPRAY 16 GM NS SCH ×2 (11:09→11:10)
[2018-11-23] MEDS: ENOXAPARIN 40 MG/0.4 ML INJ SUB-Q SCH (11:09)
[2018-11-23] MEDS: BUTALB/ACETAMINOPHEN/CAFFEINE TAB PO PRN ×2 (11:23→21:40)
--- NOTE | 2018-11-23 16:17 | Progress Note ---
Assessment and Plan Cultures: BCx 11/12 - NGTD 11/13/2018 serum crypto Ag: negative Fungitell <31 Histoplasma Ur Ag: negative Blasto Ur Ag: Negative Bartonella PCR: Negative AFB smears x 2 negative BAL 11/20/2018 AFB smear x 1 rare AFB Assessment: 38 yo M PMHx HIV/AIDS not on ART admitted with fevers, pneumonia. 1. Acute sepsis - present on admission with fevers, leukopenia, tachycardia. Likely secondary to pneumonia. Resolved. Completed pneumonia treatment. 2. Pulmonary nodules in immunocompromised patient: broad differential in patient off ART. In the setting of cavitation must rule out TB. Continue airborne precautions until it is ruled out. Other differential: pulmonary Cryptococcosis (however serum Ag is negative), PJP though does not have classic imaging findings (seems unlikely with negative Fungitell), Histoplasmosis/blastomycosis (Urine Ag negative for both). ? bacterial pneumonia v/s KS / malignancy. s/p bronchoscopy by Dr. Delgado 11/20/2018. BAL 11/20/2018 AFB smear x 1 rare AFB 3. HIV/AIDS - CD4: 124. Viral load is high at 6 million. Would recommend holding off on starting ART until above ruled out. On OI prophylaxis with Bactrim. 4. Rash - ? bacillary angiomatosis vs Kaposi sarcoma vs disseminated Crypto (unlikely given negative Ag). S/P skin biopsy. Could also be from syphilis. 5. Neurosyphilis - RPR 1:128. LP shows 30 WBC all lymphocytes. CSF VDRL also positive. Continue to treat neurosyphilis with 2 weeks of IV penicillin. Recs: - BAL 11/20/2018 AFB smear x 1 rare AFB ?TB will call micro to request M.TB PCR tomorrow - restart airborne isolation (stopped today) - continue IV penicillin G 24 million units daily as treatment of Neurosyphilis D6 of 14 (ending 11/30/2018) - f/u skin punch biopsy results, prelim report - sent to [facility] for dermpath eval - continue PO Bactrim DS daily for prophylaxis - f/u BAL for routine culture, AFB, fungal - d/w case management for OPAT arrangements - will need to follow up outpatient to initiate HAART and follow up on the pending studies Dr Brock is rounding tomorrow. Discussed with Dr Gutiérrez and Dr Yeni Cancino MD Infectious Diseases Seat Cover Installer [facility] ([facility]) M [phone] O [phone] Subjective Date of service: 11/23/18 Principal diagnosis: pneumonia, HIV-AIDS, molluscum contagiosum Interval history: Feels great wants to go home. No fever. No cough. Objective - Exam Narrative Exam: General appearance: Alert in NAD Eyes: anicteric sclerae, moist conjunctivae; no lid-lag; PERRLA HENT: Atraumatic; oropharynx clear with moist mucous membranes and no mucosal ulcerations/no oral thrush; normal hard and soft palate. Lungs: CTA, with normal respiratory effort and no intercostal retractions CV: RRR no murmur Abdomen: Soft, non-tender; no masses or hepatosplenomegaly Extremities: no edema, no cyanosis Skin: No rash. Psych: Appropriate affect, alert and oriented to person, place and time. Neuro: alert and oriented x 3. Moving all extermities - Constitutional Vitals: Vital Signs Temp Pulse Resp BP Pulse Ox 98.5 F 90 16 113/65 99 11/23/18 12:32 11/23/18 12:32 11/23/18 12:32 11/23/18 12:32 11/23/18 12:32 Temperature -Last 24 Hours Temperature 98.5 F Temperature 98.4 F Temperature 97.9 F Temperature 97.7 F - Labs CBC & Chem 7: 11/17/18 08:16 11/17/18 08:16
[2018-11-23] MEDS: oxyCODONE /ACETAMINOPHEN 5-325MG TAB PO PRN (17:16)
[2018-11-23] MEDS: TEMAZEPAM 15 MG CAP PO PRN (21:40)
[2018-11-24] MEDS: PENICILLIN G POTASSIUM 4 MIL.UNITS in SODIUM CHLORIDE 0.9% 50 ML IV SCH ×6 (01:56→22:28)
[2018-11-24] MEDS: ENOXAPARIN 40 MG/0.4 ML INJ SUB-Q SCH (10:08)
[2018-11-24] MEDS: SULFAMETHOXAZOLE/TRIMETHOPRIM 800/160MG DS TAB PO SCH (10:08)
[2018-11-24] MEDS: FLUTICASONE PROPIONATE NASAL SPRAY 16 GM NS SCH (10:09)
[2018-11-24] MEDS: oxyCODONE /ACETAMINOPHEN 5-325MG TAB PO PRN ×2 (10:23→22:38)
[2018-11-24] MEDS: IPRATROPIUM/ALBUTEROL SULFATE 3 ML AMPUL.NEB IH SCH ×2 (11:22→20:36)
[2018-11-24] MEDS: BUTALB/ACETAMINOPHEN/CAFFEINE TAB PO PRN (12:43)
--- NOTE | 2018-11-24 13:35 | Progress Note ---
Assessment and Plan Cultures: BCx 11/12 - NGTD 11/13/2018 serum crypto Ag: negative Fungitell <31 Histoplasma Ur Ag: negative Blasto Ur Ag: Negative Bartonella PCR: Negative AFB smears x 2 negative BAL 11/20/2018 AFB smear x 1 rare AFB Assessment: 38 yo M PMHx HIV/AIDS not on ART admitted with fevers, pneumonia. 1. Acute sepsis - present on admission with fevers, leukopenia, tachycardia. Likely secondary to pneumonia. Resolved. Completed pneumonia treatment. 2. Pulmonary nodules in immunocompromised patient: broad differential in patient off ART. In the setting of cavitation must rule out TB. Continue airborne pre cautions until it is ruled out. Other differential: pulmonary Cryptococcosis (however serum Ag is negative), PJP though does not have classic imaging findings (seems unlikely with negative Fungitell), Histoplasmosis/blastomycosis (Urine Ag negative for both). ? bacterial pneumonia v/s KS / malignancy. s/p bronchoscopy by Dr. Delgado 11/20/2018. BAL 11/20/2018 AFB smear x 1 rare AFB 3. HIV/AIDS - CD4: 124. Viral load is high at 6 million. Would recommend holding off on starting ART until above ruled out. On OI prophylaxis with Bactrim. 4. Rash - ? bacillary angiomatosis vs Kaposi sarcoma vs disseminated Crypto (unlikely given negative Ag). S/P skin biopsy. Could also be from syphilis. 5. Neurosyphilis - RPR 1:128. LP shows 30 WBC all lymphocytes. CSF VDRL also positive. Continue to treat neurosyphilis with 2 weeks of IV penicillin. Recs: - BAL 11/20/2018 AFB smear x 1 rare AFB ?TB, awaiting M.TB PCR - restart airborne isolation, till MTB PCR results are back and negative - continue IV penicillin G 24 million units daily as treatment of Neurosyphilis D8 of 14 (ending 11/30/2018) - f/u skin punch biopsy results, prelim report - sent to [facility] for dermpath eval - continue PO Bactrim DS daily for prophylaxis - f/u BAL for routine culture, AFB, fungal - case management orders already placed for OPAT arrangements - will need to follow up outpatient to initiate HAART and follow up on the pending studies (ID clinical implementation specialist already notified) An Brock MD FACP [facility] C: [phone] Subjective Date of service: 11/24/18 Principal diagnosis: pneumonia, HIV-AIDS, molluscum contagiosum Interval history: No fever. Feels well. No new complaints. Breathing is fine. Objective - Exam Narrative Exam: Physical Exam: Constitutional: Alert, cooperative. No acute distress Head, Ears, Nose: Normocephalic, atraumatic. External ears, nose normal Eyes: Conjunctivae/corneas clear. No icterus. No ptosis. Neck: Supple, no meningeal signs Oral: no thrush Cardiovascular: S1, S2 normal. Respiratory: Good air entry, clear to auscultation bilaterally GI: Soft, non-tender; bowel sounds normal. No peritoneal signs Musculoskeletal: No pedal edema, no cyanosis. Skin: several purple plaques + especially on lower extremities. Pearly papular lesions near eyelid. Hem/Lymphatic: No palpable cervical or supraclavicular nodes. No lymphangitis Psych: Mood ok. Affect normal Neurological: Awake, alert, oriented. No gross abnormality - Constitutional Vitals: Vital Signs Temp Pulse Resp BP Pulse Ox 98.0 F 95 H 20 121/60 99 11/24/18 05:59 11/24/18 11:22 11/24/18 11:22 11/24/18 05:59 11/24/18 05:59 Temperature -Last 24 Hours Temperature 98.0 F Temperature 97.6 F Temperature 98.0 F - Labs CBC & Chem 7: 11/17/18 08:16 11/17/18 08:16
--- NOTE | 2018-11-24 16:17 | Progress Note ---
Assessment and Plan Acute sepsis, Present on admission with fevers, leukopenia, tachycardia. Likely secondary to pneumonia. Resolved. Completed pneumonia treatment. Pulmonary nodules in immunocompromised patient, Broad differential in patient off ART. In the setting of cavitation must rule out TB. Continue airborne precautions until it is ruled out. Other differential: pulmonary Cryptococcosis (however serum Ag is negative), PJP though does not have classic imaging findings (seems unlikely with negative Fungitell), Histoplasmosis/blastomycosis (Urine Ag negative for both). ? bacterial pneumonia v/s KS / malignancy. s/p bronchoscopy by Dr. Delgado 11/20/2018. BAL 11/20/2018 AFB smear x 1 rare AFB HIV/AIDS CD4: 124. Viral load is high at 6 million. Would recommend holding off on starting ART until above ruled out. On OI prophylaxis with Bactrim. generalized rash, ? bacillary angiomatosis vs Kaposi sarcoma vs disseminated Crypto (unlikely giv en negative Ag). S/P skin biopsy. Could also be from syphilis. 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 Midline has been placed. Needs funding for IV antibiotics as patient is unfunded. DVT prophylaxis Disposition; continue inpatient care patrick cm, tentative dc tomorrow Subjective Date of service: 11/22/18 Principal diagnosis: pneumonia, HIV-AIDS, molluscum contagiosum Interval history: 38-year-old man with history of HIV who presented to the hospital with generalized rash, elevated papular lesions all over his body. He was also noted to have cough and congestion upon presentation . Objective - Constitutional Vitals: Vital Signs - 12hr 11/24/18 11/24/18 05:59 11:22 Temperature 98.0 F Pulse Rate 79 Pulse Rate [ 95 H Bilateral] Respiratory 18 Rate Respiratory 20 Rate [Bilateral ] Blood Pressure 121/60 O2 Sat by Pulse 99 Oximetry General appearance: Present: no acute distress, well-nourished - EENT Eyes: PERRL, EOM intact ENT: hearing intact, clear oral mucosa Ears: bilateral: normal - Neck Neck: supple, normal ROM - Respiratory Respiratory effort: normal Respiratory: bilateral: CTA - Breasts Breasts: normal - Cardiovascular Heart rate: 78 Rhythm: regular Heart Sounds: Present: S1 & S2. Absent: gallop, rub Extremities: no ischemia, pulses intact, No edema, normal color, Full ROM - Gastrointestinal General gastrointestinal: Present: soft, non-tender, non-distended, normal bowel sounds - Genitourinary Male genitourinary: normal - Integumentary Integumentary: clear, warm, dry - Musculoskeletal Musculoskeletal: strength equal bilaterally, other (skin lesions on both lower extremities --maculopapular) - Neurologic Neurologic: moves all extremities - Psychiatric Psychiatric: memory intact, appropriate mood/affect, intact judgment & insight - Labs CBC & Chem 7: 11/17/18 08:16 11/17/18 08:16
--- NOTE | 2018-11-24 16:27 | Progress Note ---
Assessment and Plan Acute sepsis, Present on admission with fevers, leukopenia, tachycardia. Likely secondary to pneumonia. Resolved. Completed pneumonia treatment. Pulmonary nodules in immunocompromised patient, Broad differential in patient off ART. In the setting of cavitation must rule out TB. Continue airborne precautions until it is ruled out. Other differential: pulmonary Cryptococcosis (however serum Ag is negative), PJP though does not have classic imaging findings (seems unlikely with negative Fungitell), Histoplasmosis/blastomycosis (Urine Ag negative for both). ? bacterial pneumonia v/s KS / malignancy. s/p bronchoscopy by Dr. Delgado 11/20/2018. BAL 11/20/2018 AFB smear x 1 rare AFB BAL 11/20/2018 AFB smear x 1 rare AFB ?TB, awaiting M.TB PCR -restart airborne isolation, till MTB PCR results are back and negative HIV/AIDS CD4: 124. Viral load is high at 6 million. Would recommend holding off on starting ART until above ruled out. On OI prophylaxis with Bactrim. generalized rash, ? bacillary angiomatosis vs Kaposi sarcoma vs disseminated Crypto (unlikely given negative Ag). S/P skin biopsy. Could also be from syphilis. 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 Midline has been placed. Needs funding for IV antibiotics as patient is unfunded. DVT prophylaxis Disposition; continue inpatient care Subjective Date of service: 11/23/18 Principal diagnosis: pneumonia, HIV-AIDS, molluscum contagiosum Interval history: 38-year-old man with history of HIV who presented to the hospital with generalized rash, elevated papular lesions all over his body. He was also noted to have cough and congestion upon presentation . Objective - Constitutional Vitals: Vital Signs - 12hr 11/24/18 11/24/18 05:59 11:22 Temperature 98.0 F Pulse Rate 79 Pulse Rate [ 95 H Bilateral] Respiratory 18 Rate Respiratory 20 Rate [Bilateral ] Blood Pressure 121/60 O2 Sat by Pulse 99 Oximetry General appearance: Present: no acute distress, well-nourished - EENT Eyes: PERRL, EOM intact ENT: hearing intact, clear oral mucosa Ears: bilateral: normal - Neck Neck: supple, normal ROM - Respiratory Respiratory effort: normal Respiratory: bilateral: CTA - Breasts Breasts: normal - Cardiovascular Heart rate: 78 Rhythm: regular Heart Sounds: Present: S1 & S2. Absent: gallop, rub Extremities: no ischemia, pulses intact, No edema, normal color, Full ROM - Gastrointestinal General gastrointestinal: Present: soft, non-tender, non-distended, normal bowel sounds - Genitourinary Male genitourinary: normal - Integumentary Integumentary: clear, warm, dry - Musculoskeletal Musculoskeletal: 1, strength equal bilaterally - Neurologic Neurologic: moves all extremities - Psychiatric Psychiatric: memory intact, appropriate mood/affect, intact judgment & insight - Allied health notes Allied health notes reviewed: nursing, case management - Labs CBC & Chem 7: 11/17/18 08:16 11/17/18 08:16
--- NOTE | 2018-11-24 16:31 | Progress Note ---
Assessment and Plan Acute sepsis, Present on admission with fevers, leukopenia, tachycardia. Likely secondary to pneumonia. Resolved. Completed pneumonia treatment. Pulmonary nodules in immunocompromised patient, Broad differential in patient off ART. In the setting of cavitation must rule out TB. Continue airborne precautions until it is ruled out. Other differential: pulmonary Cryptococcosis (however serum Ag is negative), PJP though does not have classic imaging findings (seems unlikely with negative Fungitell), Histoplasmosis/blastomycosis (Urine Ag negative for both). ? bacterial pneumonia v/s KS / malignancy. s/p bronchoscopy by Dr. Delgado 11/20/2018. BAL 11/20/2018 AFB smear x 1 rare AFB BAL 11/20/2018 AFB smear x 1 rare AFB ?TB, awaiting M.TB PCR -restarted airborne isolation, till MTB PCR results are back and negative HIV/AIDS CD4: 124. Viral load is high at 6 million. Would recommend holding off on starting ART until above ruled out. On OI prophylaxis with Bactrim. generalized rash, ? bacillary angiomatosis vs Kaposi sarcoma vs disseminated Crypto (unlikely given negative Ag). S/P skin biopsy. Could also be from syphilis. 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 Midline has been placed. Needs funding for IV antibiotics as patient is unfunded. DVT prophylaxis Discharge planning issues: Disposition; continue inpatient care till PCR results come back. Patient is upset that is not being discharged. Explained to him regarding isolation requirements because the PCR results are not back. Subjective Date of service: 11/24/18 Principal diagnosis: pneumonia, HIV-AIDS, molluscum contagiosum Interval history: 38-year-old man with history of HIV who presented to the hospital with generalized rash, elevated papular lesions all over his body. He was also noted to have cough and congestion upon presentation . Objective - Constitutional Vitals: Vital Signs - 12hr 11/24/18 11/24/18 05:59 11:22 Temperature 98.0 F Pulse Rate 79 Pulse Rate [ 95 H Bilateral] Respiratory 18 Rate Respiratory 20 Rate [Bilateral ] Blood Pressure 121/60 O2 Sat by Pulse 99 Oximetry General appearance: Present: no acute distress, well-nourished - EENT Eyes: PERRL, EOM intact ENT: hearing intact, clear oral mucosa Ears: bilateral: normal - Neck Neck: supple, normal ROM - Respiratory Respiratory effort: normal Respiratory: bilateral: CTA - Breasts Breasts: deferred, normal - Cardiovascular Rhythm: regular Heart Sounds: Present: S1 & S2. Absent: gallop, rub Extremities: no ischemia, pulses intact, No edema, normal color, Full ROM Extremity abnormal: other (maculopapular lesions on both lower extremities) - Gastrointestinal General gastrointestinal: Present: soft, non-tender, non-distended, normal bowel sounds - Genitourinary Male genitourinary: normal - Integumentary Integumentary: clear, warm, dry - Musculoskeletal Musculoskeletal: 1, strength equal bilaterally - Neurologic Neurologic: moves all extremities - Psychiatric Psychiatric: memory intact, appropriate mood/affect, intact judgment & insight - Labs CBC & Chem 7: 11/17/18 08:16 11/17/18 08:16
[2018-11-24] MEDS: ALPRAZolam 0.5 MG TAB PO PRN (17:04)
[2018-11-24] MEDS: SODIUM CHLORIDE 0.9% 1000 ML 1,000 ML IV SCH (17:04)
[2018-11-24] MEDS: TEMAZEPAM 15 MG CAP PO PRN (22:28)
[2018-11-25] MEDS: PENICILLIN G POTASSIUM 4 MIL.UNITS in SODIUM CHLORIDE 0.9% 50 ML IV SCH ×6 (01:55→21:38)
[2018-11-25] MEDS: oxyCODONE /ACETAMINOPHEN 5-325MG TAB PO PRN ×3 (06:09→22:51)
[2018-11-25] MEDS: SODIUM CHLORIDE 0.9% 1000 ML 1,000 ML IV SCH ×2 (06:09→17:38)
[2018-11-25] MEDS: ENOXAPARIN 40 MG/0.4 ML INJ SUB-Q SCH (09:11)
[2018-11-25] MEDS: ACETAMINOPHEN 325 MG TAB PO PRN (09:11)
[2018-11-25] MEDS: SULFAMETHOXAZOLE/TRIMETHOPRIM 800/160MG DS TAB PO SCH (09:11)
[2018-11-25] MEDS: FLUTICASONE PROPIONATE NASAL SPRAY 16 GM NS SCH (09:12)
--- NOTE | 2018-11-25 14:24 | Progress Note ---
Assessment and Plan Cultures: BCx 11/12 - NGTD 11/13/2018 serum crypto Ag: negative Fungitell <31 Histoplasma Ur Ag: negative Blasto Ur Ag: Negative Bartonella PCR: Negative AFB smears x 2 negative BAL 11/20/2018 AFB smear x 1 rare AFB Assessment: 38 yo M PMHx HIV/AIDS not on ART admitted with fevers, pneumonia. 1. Acute sepsis - present on admission with fevers, leukopenia, tachycardia. Likely secondary to pneumonia. Resolved. Completed pneumonia treatment. 2. Pulmonary nodules in immunocompromised patient: broad differential in patient off ART. In the setting of cavitation must rule out TB. Continue airborne precautions until it is ruled out. Other differential: pulmonary Cryptococcosis (however serum Ag is negative), PJP though does not have classic imaging findings (seems unlikely with negative Fungitell), Histoplasmosis/blastomycosis (Urine Ag negative for both). ? bacterial pneumonia v/s KS / malignancy. s/p bronchoscopy by Dr. Delgado 11/20/2018. BAL 11/20/2018 AFB smear x 1 rare AFB 3. HIV/AIDS - CD4: 124. Viral load is high at 6 million. Would recommend holding off on starting ART until above ruled out. On OI prophylaxis with Bactrim. 4. Rash - ? bacillary angiomatosis vs Kaposi sarcoma vs disseminated Crypto (unlikely given negative Ag). S/P skin biopsy. Could also be from syphilis. 5. Neurosyphilis - RPR 1:128. LP shows 30 WBC all lymphocytes. CSF VDRL also positive. Continue to treat neurosyphilis with 2 weeks of IV penicillin. Recs: - BAL 11/20/2018 AFB smear x 1 rare AFB ?TB, awaiting M.TB PCR. I discussed with Afua from Microbiology lab, the sample is sent to NOSTROMO ICT, once there is enough growth on broth culture, TB PCR probe will be done - hence continue airborne isolation, till MTB PCR results are back and negative - continue IV penicillin G 24 million units daily as treatment of Neurosyphilis D (ending 11/30/2018) - f/u skin punch biopsy results, prelim report - sent to [facility] for dermpath eval - continue PO Bactrim DS daily for prophylaxis - case management orders already placed for OPAT arrangements - will need to follow up outpatient to initiate HAART and follow up on the pending studies (ID clinical unit educator already notified) An Brock MD [facility] C: [phone] Subjective Date of service: 11/25/18 Principal diagnosis: pneumonia, HIV-AIDS, molluscum contagiosum Interval history: No fever. Intermittent headache. Wants to know when he can go home. Objective - Exam Narrative Exam: Physical Exam: Constitutional: Alert, cooperative. No acute distress Head, Ears, Nose: Normocephalic, atraumatic. External ears, nose normal Eyes: Conjunctivae/corneas clear. No icterus. No ptosis. Neck: Supple, no meningeal signs Oral: no thrush Cardiovascular: S1, S2 normal. Respiratory: Good air entry, clear to auscultation bilaterally GI: Soft, non-tender; bowel sounds normal. No peritoneal signs Musculoskeletal: No pedal edema, no cyanosis. Skin: several purple plaques + especially on lower extremities. Pearly papular lesions near eyelid. Hem/Lymphatic: No palpable cervical or supraclavicular nodes. No lymphangitis Psych: Mood ok. Affect normal Neurological: Awake, alert, oriented. No gross abnormality - Constitutional Vitals: Vital Signs Temp Pulse Resp BP Pulse Ox 98.4 F 89 18 119/71 98 11/25/18 11:50 11/25/18 11:50 11/25/18 11:50 11/25/18 11:50 11/25/18 11:50 Temperature -Last 24 Hours Temperature 98.4 F Temperature 98.2 F Temperature 98.2 F Temperature 98.5 F - Labs CBC & Chem 7: 11/17/18 08:16 11/17/18 08:16
--- NOTE | 2018-11-25 17:25 | Progress Note ---
Assessment and Plan Assessment and plan: Acute sepsis, Present on admission with fevers, leukopenia, tachycardia. Likely secondary to pneumonia. Resolved. Completed pneumonia treatment. Pulmonary nodules in immunocompromised patient, Broad differential in patient off ART. In the setting of cavitation must rule out TB. Continue airborne precautions until it is ruled out. Other differential: pulmonary Cryptococcosis (however serum Ag is negative), PJP though does not have classic imaging findings (seems unlikely with negative Fungitell), Histoplasmosis/blastomycosis (Urine Ag negative for both). ? bacterial pneumonia v/s KS / malignancy. s/p bronchoscopy by Dr. Delgado 11/20/2018. BAL 11/20/2018 AFB smear x 1 rare AFB BAL 11/20/2018 AFB smear x 1 rare AFB ?TB, awaiting M.TB PCR -restarted airborne isolation, till MTB PCR results are back and negative HIV/AIDS CD4: 124. Viral load is high at 6 million. Would recommend holding off on starting ART until above ruled out. On OI prophylaxis with Bactrim. generalized rash, ? bacillary angiomatosis vs Kaposi sarcoma vs disseminated Crypto (unlikely given negative Ag). S/P skin biopsy. Could also be from syphilis. 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 Midline has been placed. Needs funding for IV antibiotics as patient is unfunded. DVT prophylaxis Disposition; continue inpatient care till PCR results come back. History Interval history: Patient was seen and evaluated this morning. Patient didn't have any com plaints. His main concern is when is going home. Hospitalist Physical - Physical exam Narrative exam: Not in cardiopulmonary distress. The patient appeared well nourished and normally developed. Vital signs as documented. Head exam is unremarkable. No scleral icterus . Neck is without jugular venous distension, thyromegaly, or carotid bruits. Lungs are clear to auscultation. Cardiac exam reveals regular rate and Rhythm. Abdominal exam reveals normal bowel sounds, no masses, no organomegaly and no aortic enlargement. Extremities are nonedematous and both femoral and pedal pulses are normal. CONTROL OFFICER: Alert and oriented 3. No focal weakness. SKIN; molluscum contagiosum. Skin eruption all over. - Constitutional Vitals: Temp Pulse Resp BP Pulse Ox 98.4 F 89 18 119/71 98 11/25/18 11:50 11/25/18 11:50 11/25/18 11:50 11/25/18 11:50 11/25/18 11:50 General appearance: Present: no acute distress, well-nourished Results - Labs CBC & Chem 7: 11/17/18 08:16 11/17/18 08:16 Labs: Laboratory Last Values WBC 2.9 K/mm3 (4.5-11.0) L 11/17/18 08:16 RBC 4.88 M/mm3 (3.65-5.03) 11/17/18 08:16 Hgb 11.4 gm/dl (11.8-15.2) L 11/17/18 08:16 Hct 35.6 % (35.5-45.6) 11/17/18 08:16 MCV 73 fl (84-94) L 11/17/18 08:16 MCH 23 pg (28-32) L 11/17/18 08:16 MCHC 32 % (32-34) 11/17/18 08:16 RDW 15.1 % (13.2-15.2) 11/17/18 08:16 Plt Count 152 K/mm3 (140-440) 11/17/18 08:16 Lymph % (Auto) Ob Tech 11/13/18 06:11 Vance % (Auto) Ob Tech 11/13/18 06:11 Eos % (Auto) Ob Tech 11/13/18 06:11 Baso % (Auto) Ob Tech 11/13/18 06:11 Lymph # Ob Tech 11/13/18 06:11 Vance # Ob Tech 11/13/18 06:11 Eos # Ob Tech 11/13/18 06:11 Baso # Ob Tech 11/13/18 06:11 Add Manual Diff Complete 11/17/18 08:16 Total Counted 100 11/17/18 08:16 Seg Neutrophils % Ob Tech 11/13/18 06:11 Seg Neuts % (Manual) 53.0 % (40.0-70.0) 11/17/18 08:16 8.0 % 11/17/18 08:16 25.0 % (13.4-35.0) 11/17/18 08:16 Reactive Lymphs % (Man) 3.0 % 11/17/18 08:16 10.0 % (0.0-7.3) H 11/17/18 08:16 0 % (0.0-4.3) 11/17/18 08:16 0 % (0.0-1.8) 11/17/18 08:16 1.0 % 11/17/18 08:16 0 % 11/17/18 08:16 0 % 11/17/18 08:16 0 % 11/17/18 08:16 Nucleated RBC % Not Reportable 11/17/18 08:16 Seg Neutrophils # Ob Tech 11/13/18 06:11 Seg Neutrophils # Man 1.5 K/mm3 (1.8-7.7) L 11/17/18 08:16 Band Neutrophils # 0.2 K/mm3 11/17/18 08:16 Abs Lymphs (Manual) See scanned result 11/13/18 14:29 0.7 K/mm3 (1.2-5.4) L 11/17/18 08:16 Abs React Lymphs (Man) 0.1 K/mm3 11/17/18 08:16 0.3 K/mm3 (0.0-0.8) 11/17/18 08:16 0.0 K/mm3 (0.0-0.4) 11/17/18 08:16 0.0 K/mm3 (0.0-0.1) 11/17/18 08:16 0.0 K/mm3 11/17/18 08:16 0.0 K/mm3 11/17/18 08:16 0.0 K/mm3 11/17/18 08:16 Blast Cells # 0.0 K/mm3 11/17/18 08:16 WBC Morphology Not Reportable 11/17/18 08:16 Hypersegmented Neuts Not Reportable 11/17/18 08:16 Hyposegmented Neuts Not Reportable 11/17/18 08:16 Hypogranular Neuts Not Reportable 11/17/18 08:16 Not Reportable 11/17/18 08:16 Not Reportable 11/17/18 08:16 Not Reportable 11/17/18 08:16 Not Reportable 11/17/18 08:16 Not Reportable 11/17/18 08:16 Not Reportable 11/17/18 08:16 Consistent w auto 11/17/18 08:16 Not Reportable 11/17/18 08:16 Plt Clumps, EDTA Not Reportable 11/17/18 08:16 Not Reportable 11/17/18 08:16 Not Reportable 11/17/18 08:16 Not Reportable 11/17/18 08:16 Plt Morphology Comment Not Reportable 11/17/18 08:16 RBC Morphology Not Reportable 11/17/18 08:16 Dimorphic RBCs Not Reportable 11/17/18 08:16 Not Reportable 11/17/18 08:16 1+ 11/17/18 08:16 Not Reportable 11/17/18 08:16 Not Reportable 11/17/18 08:16 Not Reportable 11/17/18 08:16 Not Reportable 11/17/18 08:16 Not Reportable 11/17/18 08:16 Not Reportable 11/17/18 08:16 Not Reportable 11/17/18 08:16 Not Reportable 11/17/18 08:16 Not Reportable 11/17/18 08:16 Not Reportable 11/17/18 08:16 Not Reportable 11/17/18 08:16 Not Reportable 11/17/18 08:16 Not Reportable 11/17/18 08:16 Not Reportable 11/17/18 08:16 Not Reportable 11/17/18 08:16 Not Reportable 11/17/18 08:16 Not Reportable 11/17/18 08:16 Acanthocytes (Spur) Not Reportable 11/17/18 08:16 Rouleaux Not Reportable 11/17/18 08:16 Not Reportable 11/17/18 08:16 Not Reportable 11/17/18 08:16 Not Reportable 11/17/18 08:16 Not Reportable 11/17/18 08:16 Hem Pathologist Commnt No 11/17/18 08:16 PT 13.0 Sec. (12.2-14.9) 11/14/18 14:06 INR 1.01 (0.87-1.13) 11/14/18 14:06 APTT 38.2 Sec. (24.2-36.6) H 11/14/18 14:06 Sodium 141 mmol/L (137-145) 11/17/18 08:16 Potassium 4.5 mmol/L (3.6-5.0) 11/17/18 08:16 Chloride 104.8 mmol/L (98-107) 11/17/18 08:16 Carbon Dioxide 28 mmol/L (22-30) 11/17/18 08:16 13 mmol/L 11/17/18 08:16 BUN 9 mg/dL (9-20) 11/17/18 08:16 0.7 mg/dL (0.8-1.5) L 11/17/18 08:16 Estimated GFR > 60 ml/min 11/17/18 08:16 13 % 11/17/18 08:16 Glucose 84 mg/dL (75-100) 11/17/18 08:16 5.5 % (4-6) 11/12/18 14:22 Lactic Acid 1.50 mmol/L (0.7-2.0) 11/12/18 15:22 Calcium 9.1 mg/dL (8.4-10.2) 11/17/18 08:16 0.20 mg/dL (0.1-1.2) 11/17/18 08:16 AST 63 units/L (5-40) H 11/17/18 08:16 ALT 41 units/L (7-56) 11/17/18 08:16 72 units/L (35-129) 11/17/18 08:16 8.8 g/dL (6.3-8.2) H 11/17/18 08:16 3.1 g/dL (3.9-5) L 11/17/18 08:16 0.5 % 11/17/18 08:16 Fluid Color Red 11/20/18 Unknown Fluid Appearance Bloody 11/20/18 Unknown Fluid WBC 575 /mm3 11/20/18 Unknown Fluid RBC 04991 /mm3 11/20/18 Unknown Fluid Seg Neutrophils 94.0 % 11/20/18 Unknown Fluid Lymphocytes 5.0 % 11/20/18 Unknown Fluid Reactive Lymphs 0 % 11/20/18 Unknown Fluid Monocytes 1.0 % 11/20/18 Unknown Fluid Eosinophils 0 % 11/20/18 Unknown Fluid Basophils 0 % 11/20/18 Unknown Fluid Comment Diff performed 11/20/18 Unknown Clear 11/14/18 Unknown Colorless 11/14/18 Unknown 30 /mm3 (1-10) 11/14/18 Unknown 294 /mm3 (0-0) 11/14/18 Unknown CSF Seg Neutrophils 0 % (0-6) 11/14/18 Unknown 99.0 % (40-80) 11/14/18 Unknown CSF Reactive Lymphs 0 % 11/14/18 Unknown 1.0 % (15-45) 11/14/18 Unknown 0 % 11/14/18 Unknown 0 % 11/14/18 Unknown C 11/14/18 Unknown 52 mg/dL 11/17/18 Unknown 35 mg/dL 11/17/18 Unknown Reactive 1:2 (Nonreactive) H 11/17/18 Unknown Lymph Enumerat CD4/CD8 See scanned result 11/13/18 14:29 % CD3 Cells See scanned result 11/13/18 14:29 See scanned result 11/13/18 14:29 % CD4 Cells See scanned result 11/13/18 14:29 See scanned result 11/13/18 14:29 % CD8 Cells See scanned result 11/13/18 14:29 See scanned result 11/13/18 14:29 % CD19 Cells See scanned result 11/13/18 14:29 See scanned result 11/13/18 14:29 RPR Titer 1:128 11/12/18 14:22 RPR Reactive (Nonreactive) 11/12/18 14:22 T.pallidum Ab (FTA-ABS) Reactive (Nonreactive) H 11/12/18 14:22 C.trachomatis DNA (SDA) Not detected (Not Detected) 11/15/18 06:20 Non-reactive (NonReactive) 11/13/18 14:29 HIV-1 RNA PCR copies/ml [id number] Copies/mL H 11/13/18 14:29 6.46 Log cps/mL H 11/13/18 14:29 N.gonorrhoeae DNA (SDA) Not detected (Not Detected) 11/15/18 06:20 11/20/18 Unknown Fungal Id Prelim 11/20/18 Unknown Flexitest 1 11/14/18 12:50 Active Medications - Current Medications Current Medications: Generic Name Dose Route Start Last Admin Trade Name Freq PRN Reason Stop Dose Admin Acetaminophen 650 mg 11/12/18 21:59 11/25/18 09:11 Tylenol PO 650 mg Q4H PRN Administration Pain MILD(1-3)/Fever >100.5/FALK Acetaminophen/Butalbital/Caffeine 2 tab 11/18/18 14:29 11/24/18 12:43 Fioricet PO 2 tab Q4H PRN Administration Headache Albuterol 2.5 mg 11/12/18 22:02 11/13/18 02:53 Proventil IH 2.5 mg Q4HRT PRN Administration Shortness Of Breath Albuterol/Ipratropium 1 ampul 11/19/18 20:00 11/24/18 20:36 Duoneb *Not For Prn Use* IH 1 ampul BIDRT WIN Administration Alprazolam 0.5 mg 11/24/18 16:56 11/24/18 17:04 Xanax PO 0.5 mg Q8H PRN Administration Anxiety Enoxaparin Sodium 40 mg 11/13/18 10:00 11/25/18 09:11 Lovenox SUB-Q 40 mg QDAY WIN Administration Fluticasone Propionate 100 mcg 11/13/18 19:00 11/25/18 09:12 Flonase NS 100 mcg QDAY WIN Administration Hydromorphone HCl 0.5 mg 11/12/18 21:59 11/18/18 08:43 Dilaudid IV 0.5 mg Q3H PRN Administration Pain , Severe (7-10) Sodium Chloride 1,000 mls @ 75 mls/hr 11/13/18 08:00 11/25/18 06:09 Nacl 0.9% 1000 Ml IV 75 mls/hr DIRECT WIN Administration Penicillin G Potassium 4 mil. 50 mls @ 100 mls/hr 11/17/18 16:00 11/25/18 14:14 units/ Sodium Chloride IV 11/30/18 22:29 100 mls/hr Q4HR WIN Administration Ondansetron HCl 4 mg 11/12/18 21:59 11/23/18 07:27 Zofran IV 4 mg Q8H PRN Administration Nausea And Vomiting Oxycodone/Acetaminophen 1 tab 11/12/18 21:59 11/25/18 14:21 Percocet 5/325 PO 1 tab Q6H PRN Administration Pain, Moderate (4-6) Sodium Chloride 10 ml 11/12/18 22:00 11/25/18 09:12 Sodium Chloride Flush Syringe 10 Ml IV 10 ml BID WIN Administration Sodium Chloride 10 ml 11/12/18 21:59 Sodium Chloride Flush Syringe 10 Ml IV PRN PRN LINE FLUSH Temazepam 15 mg 11/19/18 22:16 11/24/18 22:28 Restoril PO 15 mg QHS PRN Administration Sleep Trimethoprim/Sulfamethoxazole 1 each 11/19/18 10:00 11/25/18 09:11 Bactrim Ds PO 1 each DAILY WIN Administration Nutrition/Malnutrition Assess - Dietary Evaluation Nutrition/Malnutrition Findings: Nutrition Notes Start: 11/13/18 09:49 Freq: Status: Active Protocol: Document 11/21/18 15:56 RM (Rec: 11/21/18 16:00 RM [id number]) Nutrition Notes Initial or Follow up Reassessment Other Pertinent Diagnosis HIV Current Diet Regular w/Ensure Enlive BID Labs/Tests Reviewed Pertinent Medications Zofran Height 5 ft 11 in Weight 65.8 kg [place] Body Weight (kg) 78.18 BMI 20.2 Subjective/Other Information Pt stated that his appetite is good and that he eats all of the facility meals in addition to outside food. Also stated that he is drinking the Ensure Enlive. Percent of energy/protein needs met: 100%/100% Burn Absent Trauma Absent Minimum of two criteria No #1 Nutrition Diagnosis Predicted suboptimal energy intake Diagnosis Progress(for reassessment Continues documentation) Is patient on ventilator? No Is Patient Ambulatory and/or Out of Bed Yes REE-([facility]-ambulatory/OOB) [ 2086.669 [id number]] Calculation Used for Recommendations [facility] Additional Notes Protein needs: 51g-63g/kg (0.8 -1g/kg) Fluid needs: 1ml/kcal Nutrition Intervention Change Diet Order: Regular Add Supplement/Snack (indicate name/kcal Ensure Enlive bid /protein ) Provides kCal: 700 Provides Protein (gm) 40 Goal #1 Continue to meet at least 75% of protein and energy needs via PO and ONS intakes Anticipated Discharge Needs: Regular diet and ONS PRN Follow-Up By: 11/28/18 Additional Comments Follow for PO and ONS intakes
[2018-11-25] MEDS: IPRATROPIUM/ALBUTEROL SULFATE 3 ML AMPUL.NEB IH SCH ×2 (18:38→19:39)
[2018-11-25] MEDS: TEMAZEPAM 15 MG CAP PO PRN (22:51)
[2018-11-26] MEDS: PENICILLIN G POTASSIUM 4 MIL.UNITS in SODIUM CHLORIDE 0.9% 50 ML IV SCH ×6 (02:12→22:07)
[2018-11-26] MEDS: IPRATROPIUM/ALBUTEROL SULFATE 3 ML AMPUL.NEB IH SCH ×2 (08:36→19:32)
[2018-11-26] MEDS: ENOXAPARIN 40 MG/0.4 ML INJ SUB-Q SCH (10:47)
[2018-11-26] MEDS: SULFAMETHOXAZOLE/TRIMETHOPRIM 800/160MG DS TAB PO SCH (10:48)
[2018-11-26] MEDS: FLUTICASONE PROPIONATE NASAL SPRAY 16 GM NS SCH (10:54)
--- NOTE | 2018-11-26 11:53 | Progress Note ---
Assessment and Plan Cultures: BCx 11/12 - NGTD 11/13/2018 serum crypto Ag: negative Fungitell <31 Histoplasma Ur Ag: negative Blasto Ur Ag: Negative Bartonella PCR: Negative AFB smears x 2 negative BAL 11/20/2018 AFB smear x 1 rare AFB Assessment: 38 yo M PMHx HIV/AIDS not on ART admitted with fevers, pneumonia. 1. Acute sepsis - present on admission with fevers, leukopenia, tachycardia. Likely secondary to pneumonia. Resolved. Completed pneumonia treatment. 2. Pulmonary nodules in immunocompromised patient: broad differential in patient off ART. In the setting of cavitation must rule out TB. Continue airborne precautions until it is ruled out. Other differential: pulmonary Cryptococcosis (however serum Ag is negative), PJP though does not have classic imaging findings (seems unlikely with negative Fungitell), Histoplasmosis/blastomycosis (Urine Ag negative for both). ? bacterial pneumonia v/s KS / malignancy. s/p bronchoscopy by Dr. Delgado 11/20/2018. BAL 11/20/2018 AFB smear x 1 rare AFB 3. HIV/AIDS - CD4: 124. Viral load is high at 6 million. Would recommend holding off on starting ART until above ruled out. On OI prophylaxis with Bactrim. 4. Rash - ? bacillary angiomatosis vs Kaposi sarcoma vs disseminated Crypto (unlikely given negative Ag). S/P skin biopsy. Could also be from syphilis. 5. Neurosyphilis - RPR 1:128. LP shows 30 WBC, all lymphocytes. CSF VDRL also positive. Continue to treat neurosyphilis with 2 weeks of IV penicillin. Recs: - BAL 11/20/2018 AFB smear x 1 rare AFB ?TB, awaiting M.TB PCR. I again discussed with Afua from Microbiology lab today to get an update on the TB PCR. Sample is at [facility] - hence continue airborne isolation, till MTB PCR results are back and negative - continue IV penicillin G 24 million units daily as treatment of Neurosyphilis D10 of 14 (ending 11/30/2018) - called surgical path today to get an update on skin punch biopsy results, awaiting fax from them - continue PO Bactrim DS daily for prophylaxis - case management orders already placed for OPAT arrangements - will need to follow up outpatient to initiate HAART and follow up on the pending studies (ID clinical project manager already notified) An Brock MD [facility] C: [phone] Subjective Date of service: 11/26/18 Principal diagnosis: pneumonia, HIV-AIDS, molluscum contagiosum Interval history: No fever. no new complaints. Objective - Exam Narrative Exam: Physical Exam: Constitutional: Alert, cooperative. No acute distress Head, Ears, Nose: Normocephalic, atraumatic. External ears, nose normal Eyes: Conjunctivae/corneas clear. No icterus. No ptosis. Neck: Supple, no meningeal signs Oral: no thrush Cardiovascular: S1, S2 normal. Respiratory: Good air entry, clear to auscultation bilaterally GI: Soft, non-tender; bowel sounds normal. No peritoneal signs Musculoskeletal: No pedal edema, no cyanosis. Skin: several purple plaques + especially on lower extremities. Pearly papular lesions near eyelid. Hem/Lymphatic: No palpable cervical or supraclavicular nodes. No lymphangitis Psych: Mood ok. Affect normal Neurological: Awake, alert, oriented. No gross abnormality. - Constitutional Vitals: Vital Signs Temp Pulse Resp BP Pulse Ox 98.6 F 84 20 104/63 97 11/26/18 05:12 11/26/18 08:53 11/26/18 08:53 11/26/18 05:12 11/26/18 05:12 Temperature -Last 24 Hours Temperature 98.6 F Temperature 97.8 F Temperature 98.0 F - Labs CBC & Chem 7: 11/17/18 08:16 11/17/18 08:16
--- NOTE | 2018-11-26 14:50 | Progress Note ---
Assessment and Plan Assessment and plan: Acute sepsis, Present on admission with fevers, leukopenia, tachycardia. Likely secondary to pneumonia. Resolved. Completed pneumonia treatment. Pulmonary nodules in immunocompromised patient, Broad differential in patient off ART. In the setting of cavitation must rule out TB. Continue airborne precautions until it is ruled out. Other differential: pulmonary Cryptococcosis (however serum Ag is negative), PJP though does not have classic imaging findings (seems unlikely with negative Fungitell), Histoplasmosis/blastomycosis (Urine Ag negative for both). ? bacterial pneumonia v/s KS / malignancy. s/p bronchoscopy by Dr. Delgado 11/20/2018. BAL 11/20/2018 AFB smear x 1 rare AFB BAL 11/20/2018 AFB smear x 1 rare AFB ?TB, awaiting M.TB PCR -restarted airborne isolation, till MTB PCR results are back and negative HIV/AIDS CD4: 124. Viral load is high at 6 million. Would recommend holding off on starting ART until above ruled out. On OI prophylaxis with Bactrim. generalized rash, ? bacillary angiomatosis vs Kaposi sarcoma vs disseminated Crypto (unlikely given negative Ag). S/P skin biopsy. Could also be from syphilis. 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 Midline has been placed. Needs funding for IV antibiotics as patient is unfunded. DVT prophylaxis Disposition; continue inpatient care till PCR results come back. History Interval history: Patient was seen and evaluated this morning. Patient didn't have any com plaints. Hospitalist Physical - Physical exam Narrative exam: Not in cardiopulmonary distress. The patient appeared well nourished and normally developed. Vital signs as documented. Head exam is unremarkable. No scleral icterus . Neck is without jugular venous distension, thyromegaly, or carotid bruits. Lungs are clear to auscultation. Cardiac exam reveals regular rate and Rhythm. Abdominal exam reveals normal bowel sounds, no masses, no organomegaly and no aortic enlargement. Extremities are nonedematous and both femoral and pedal pulses are normal. FRONT END APPLICATION DEVELOPER: Alert and oriented 3. No focal weakness. SKIN; molluscum contagiosum. Skin eruption all over. - Constitutional Vitals: Temp Pulse Resp BP Pulse Ox 98.3 F 83 18 114/72 98 11/26/18 11:51 11/26/18 11:51 11/26/18 11:51 11/26/18 11:51 11/26/18 11:51 General appearance: Present: no acute distress, well-nourished Results - Labs CBC & Chem 7: 11/17/18 08:16 11/17/18 08:16 Labs: Laboratory Last Values WBC 2.9 K/mm3 (4.5-11.0) L 11/17/18 08:16 RBC 4.88 M/mm3 (3.65-5.03) 11/17/18 08:16 Hgb 11.4 gm/dl (11.8-15.2) L 11/17/18 08:16 Hct 35.6 % (35.5-45.6) 11/17/18 08:16 MCV 73 fl (84-94) L 11/17/18 08:16 MCH 23 pg (28-32) L 11/17/18 08:16 MCHC 32 % (32-34) 11/17/18 08:16 RDW 15.1 % (13.2-15.2) 11/17/18 08:16 Plt Count 152 K/mm3 (140-440) 11/17/18 08:16 Lymph % (Auto) Auto Polisher 11/13/18 06:11 Mcculloch % (Auto) Auto Polisher 11/13/18 06:11 Eos % (Auto) Auto Polisher 11/13/18 06:11 Baso % (Auto) Auto Polisher 11/13/18 06:11 Lymph # Auto Polisher 11/13/18 06:11 [place]ulloch # Auto Polisher 11/13/18 06:11 Eos # Auto Polisher 11/13/18 06:11 Baso # Auto Polisher 11/13/18 06:11 Add Manual Diff Complete 11/17/18 08:16 Total Counted 100 11/17/18 08:16 Seg Neutrophils % Auto Polisher 11/13/18 06:11 Seg Neuts % (Manual) 53.0 % (40.0-70.0) 11/17/18 08:16 8.0 % 11/17/18 08:16 25.0 % (13.4-35.0) 11/17/18 08:16 Reactive Lymphs % (Man) 3.0 % 11/17/18 08:16 10.0 % (0.0-7.3) H 11/17/18 08:16 0 % (0.0-4.3) 11/17/18 08:16 0 % (0.0-1.8) 11/17/18 08:16 1.0 % 11/17/18 08:16 0 % 11/17/18 08:16 0 % 11/17/18 08:16 0 % 11/17/18 08:16 Nucleated RBC % Not Reportable 11/17/18 08:16 Seg Neutrophils # Auto Polisher 11/13/18 06:11 Seg Neutrophils # Man 1.5 K/mm3 (1.8-7.7) L 11/17/18 08:16 Band Neutrophils # 0.2 K/mm3 11/17/18 08:16 Abs Lymphs (Manual) See scanned result 11/13/18 14:29 0.7 K/mm3 (1.2-5.4) L 11/17/18 08:16 Abs React Lymphs (Man) 0.1 K/mm3 11/17/18 08:16 0.3 K/mm3 (0.0-0.8) 11/17/18 08:16 0.0 K/mm3 (0.0-0.4) 11/17/18 08:16 0.0 K/mm3 (0.0-0.1) 11/17/18 08:16 0.0 K/mm3 11/17/18 08:16 0.0 K/mm3 11/17/18 08:16 0.0 K/mm3 11/17/18 08:16 Blast Cells # 0.0 K/mm3 11/17/18 08:16 WBC Morphology Not Reportable 11/17/18 08:16 Hypersegmented Neuts Not Reportable 11/17/18 08:16 Hyposegmented Neuts Not Reportable 11/17/18 08:16 Hypogranular Neuts Not Reportable 11/17/18 08:16 Not Reportable 11/17/18 08:16 Not Reportable 11/17/18 08:16 Not Reportable 11/17/18 08:16 Not Reportable 11/17/18 08:16 Not Reportable 11/17/18 08:16 Not Reportable 11/17/18 08:16 Consistent w auto 09/16/19 08:16 Not Reportable 11/17/18 08:16 Plt Clumps, EDTA Not Reportable 11/17/18 08:16 Not Reportable 11/17/18 08:16 Not Reportable 11/17/18 08:16 Not Reportable 11/17/18 08:16 Plt Morphology Comment Not Reportable 11/17/18 08:16 RBC Morphology Not Reportable 11/17/18 08:16 Dimorphic RBCs Not Reportable 11/17/18 08:16 Not Reportable 11/17/18 08:16 1+ 11/17/18 08:16 Not Reportable 11/17/18 08:16 Not Reportable 11/17/18 08:16 Not Reportable 11/17/18 08:16 Not Reportable 11/17/18 08:16 Not Reportable 11/17/18 08:16 Not Reportable 11/17/18 08:16 Not Reportable 11/17/18 08:16 Not Reportable 11/17/18 08:16 Not Reportable 11/17/18 08:16 Not Reportable 11/17/18 08:16 Not Reportable 11/17/18 08:16 Not Reportable 11/17/18 08:16 Not Reportable 11/17/18 08:16 Not Reportable 11/17/18 08:16 Not Reportable 11/17/18 08:16 Not Reportable 11/17/18 08:16 Not Reportable 11/17/18 08:16 Acanthocytes (Spur) Not Reportable 11/17/18 08:16 Rouleaux Not Reportable 11/17/18 08:16 Not Reportable 11/17/18 08:16 Not Reportable 11/17/18 08:16 Not Reportable 11/17/18 08:16 Not Reportable 11/17/18 08:16 Hem Pathologist Commnt No 11/17/18 08:16 PT 13.0 Sec. (12.2-14.9) 11/14/18 14:06 INR 1.01 (0.87-1.13) 11/14/18 14:06 APTT 38.2 Sec. (24.2-36.6) H 11/14/18 14:06 Sodium 141 mmol/L (137-145) 11/17/18 08:16 Potassium 4.5 mmol/L (3.6-5.0) 11/17/18 08:16 Chloride 104.8 mmol/L (98-107) 11/17/18 08:16 Carbon Dioxide 28 mmol/L (22-30) 11/17/18 08:16 13 mmol/L 11/17/18 08:16 BUN 9 mg/dL (9-20) 11/17/18 08:16 0.7 mg/dL (0.8-1.5) L 11/17/18 08:16 Estimated GFR > 60 ml/min 11/17/18 08:16 13 % 11/17/18 08:16 Glucose 84 mg/dL (75-100) 11/17/18 08:16 5.5 % (4-6) 11/12/18 14:22 Lactic Acid 1.50 mmol/L (0.7-2.0) 11/12/18 15:22 Calcium 9.1 mg/dL (8.4-10.2) 11/17/18 08:16 0.20 mg/dL (0.1-1.2) 11/17/18 08:16 AST 63 units/L (5-40) H 11/17/18 08:16 ALT 41 units/L (7-56) 11/17/18 08:16 72 units/L (35-129) 11/17/18 08:16 8.8 g/dL (6.3-8.2) H 11/17/18 08:16 3.1 g/dL (3.9-5) L 11/17/18 08:16 0.5 % 11/17/18 08:16 Fluid Color Red 11/20/18 Unknown Fluid Appearance Bloody 11/20/18 Unknown Fluid WBC 575 /mm3 11/20/18 Unknown Fluid RBC 65001 /mm3 11/20/18 Unknown Fluid Seg Neutrophils 94.0 % 11/20/18 Unknown Fluid Lymphocytes 5.0 % 11/20/18 Unknown Fluid Reactive Lymphs 0 % 11/20/18 Unknown Fluid Monocytes 1.0 % 11/20/18 Unknown Fluid Eosinophils 0 % 11/20/18 Unknown Fluid Basophils 0 % 11/20/18 Unknown Fluid Comment Diff performed 11/20/18 Unknown Clear 11/14/18 Unknown Colorless 11/14/18 Unknown 30 /mm3 (1-10) 11/14/18 Unknown 294 /mm3 (0-0) 11/14/18 Unknown CSF Seg Neutrophils 0 % (0-6) 11/14/18 Unknown 99.0 % (40-80) 11/14/18 Unknown CSF Reactive Lymphs 0 % 11/14/18 Unknown 1.0 % (15-45) 11/14/18 Unknown 0 % 11/14/18 Unknown 0 % 11/14/18 Unknown C 11/14/18 Unknown 52 mg/dL 11/17/18 Unknown 35 mg/dL 11/17/18 Unknown Reactive 1:2 (Nonreactive) H 11/17/18 Unknown Lymph Enumerat CD4/CD8 See scanned result 11/13/18 14:29 % CD3 Cells See scanned result 11/13/18 14:29 See scanned result 11/13/18 14:29 % CD4 Cells See scanned result 11/13/18 14:29 See scanned result 11/13/18 14:29 % CD8 Cells See scanned result 11/13/18 14:29 See scanned result 11/13/18 14:29 % CD19 Cells See scanned result 11/13/18 14:29 See scanned result 11/13/18 14:29 RPR Titer 1:128 11/12/18 14:22 RPR Reactive (Nonreactive) 11/12/18 14:22 T.pallidum Ab (FTA-ABS) Reactive (Nonreactive) H 11/12/18 14:22 C.trachomatis DNA (SDA) Not detected (Not Detected) 11/15/18 06:20 Non-reactive (NonReactive) 11/13/18 14:29 HIV-1 RNA PCR copies/ml [id number] Copies/mL H 11/13/18 14:29 6.46 Log cps/mL H 11/13/18 14:29 N.gonorrhoeae DNA (SDA) Not detected (Not Detected) 11/15/18 06:20 11/20/18 Unknown Fungal Id Prelim 11/20/18 Unknown Flexitest 1 11/14/18 12:50 Active Medications - Current Medications Current Medications: Generic Name Dose Route Start Last Admin Trade Name Freq PRN Reason Stop Dose Admin Acetaminophen 650 mg 11/12/18 21:59 11/25/18 09:11 Tylenol PO 650 mg Q4H PRN Administration Pain MILD(1-3)/Fever >100.5/FALK Acetaminophen/Butalbital/Caffeine 2 tab 11/18/18 14:29 11/24/18 12:43 Fioricet PO 2 tab Q4H PRN Administration Headache Albuterol 2.5 mg 11/12/18 22:02 11/13/18 02:53 Proventil IH 2.5 mg Q4HRT PRN Administration Shortness Of Breath Albuterol/Ipratropium 1 ampul 11/19/18 20:00 11/26/18 08:36 Duoneb *Not For Prn Use* IH 1 ampul BIDRT WIN Administration Alprazolam 0.5 mg 11/24/18 16:56 11/24/18 17:04 Xanax PO 0.5 mg Q8H PRN Administration Anxiety Enoxaparin Sodium 40 mg 11/13/18 10:00 11/26/18 10:47 Lovenox SUB-Q 40 mg QDAY WIN Administration Fluticasone Propionate 100 mcg 11/13/18 19:00 11/26/18 10:54 Flonase NS 100 mcg QDAY WIN Administration Hydromorphone HCl 0.5 mg 11/12/18 21:59 11/18/18 08:43 Dilaudid IV 0.5 mg Q3H PRN Administration Pain , Severe (7-10) Sodium Chloride 1,000 mls @ 75 mls/hr 11/13/18 08:00 11/25/18 17:38 Nacl 0.9% 1000 Ml IV 75 mls/hr DIRECT WIN Administration Penicillin G Potassium 4 mil. 50 mls @ 100 mls/hr 11/17/18 16:00 11/26/18 10:46 units/ Sodium Chloride IV 11/30/18 22:29 100 mls/hr Q4HR WIN Administration Ondansetron HCl 4 mg 11/12/18 21:59 11/23/18 07:27 Zofran IV 4 mg Q8H PRN Administration Nausea And Vomiting Oxycodone/Acetaminophen 1 tab 11/12/18 21:59 11/25/18 22:51 Percocet 5/325 PO 1 tab Q6H PRN Administration Pain, Moderate (4-6) Sodium Chloride 10 ml 11/12/18 22:00 11/25/18 21:38 Sodium Chloride Flush Syringe 10 Ml IV 10 ml BID WIN Administration Sodium Chloride 10 ml 11/12/18 21:59 Sodium Chloride Flush Syringe 10 Ml IV PRN PRN LINE FLUSH Temazepam 15 mg 11/19/18 22:16 11/25/18 22:51 Restoril PO 15 mg QHS PRN Administration Sleep Trimethoprim/Sulfamethoxazole 1 each 11/19/18 10:00 11/26/18 10:48 Bactrim Ds PO 1 each DAILY WIN Administration Nutrition/Malnutrition Assess - Dietary Evaluation Nutrition/Malnutrition Findings: Nutrition Notes Start: 11/13/18 09:49 Freq: Status: Active Protocol: Document 11/21/18 15:56 RM (Rec: 11/21/18 16:00 RM [id number]) Nutrition Notes Initial or Follow up Reassessment Other Pertinent Diagnosis HIV Current Diet Regular w/Ensure Enlive BID Labs/Tests Reviewed Pertinent Medications Zofran Height 5 ft 11 in Weight 65.8 kg [place] Body Weight (kg) 78.18 BMI 20.2 Subjective/Other Information Pt stated that his appetite is good and that he eats all of the facility meals in addition to outside food. Also stated that he is drinking the Ensure Enlive. Percent of energy/protein needs met: 100%/100% Burn Absent Trauma Absent Minimum of two criteria No #1 Nutrition Diagnosis Predicted suboptimal energy intake Diagnosis Progress(for reassessment Continues documentation) Is patient on ventilator? No Is Patient Ambulatory and/or Out of Bed Yes REE-([facility]-ambulatory/OOB) [ [id number] [id number]] Calculation Used for Recommendations [facility] Additional Notes Protein needs: 51g-63g/kg (0.8 -1g/kg) Fluid needs: 1ml/kcal Nutrition Intervention Change Diet Order: Regular Add Supplement/Snack (indicate name/kcal Ensure Enlive bid /protein ) Provides kCal: 700 Provides Protein (gm) 40 Goal #1 Continue to meet at least 75% of protein and energy needs via PO and ONS intakes Anticipated Discharge Needs: Regular diet and ONS PRN Follow-Up By: 11/28/18 Additional Comments Follow for PO and ONS intakes
[2018-11-26] MEDS: SODIUM CHLORIDE 0.9% 1000 ML 1,000 ML IV SCH (19:59)
[2018-11-26] MEDS: oxyCODONE /ACETAMINOPHEN 5-325MG TAB PO PRN (22:12)
[2018-11-26] MEDS: TEMAZEPAM 15 MG CAP PO PRN (22:12)
[2018-11-27] MEDS: PENICILLIN G POTASSIUM 4 MIL.UNITS in SODIUM CHLORIDE 0.9% 50 ML IV SCH ×6 (01:59→21:20)
[2018-11-27] MEDS: SULFAMETHOXAZOLE/TRIMETHOPRIM 800/160MG DS TAB PO SCH (09:18)
[2018-11-27] MEDS: BUTALB/ACETAMINOPHEN/CAFFEINE TAB PO PRN (09:18)
[2018-11-27] MEDS: SODIUM CHLORIDE 0.9% 1000 ML 1,000 ML IV SCH (09:18)
[2018-11-27] MEDS: ENOXAPARIN 40 MG/0.4 ML INJ SUB-Q SCH (09:19)
[2018-11-27] MEDS: FLUTICASONE PROPIONATE NASAL SPRAY 16 GM NS SCH (11:20)
[2018-11-27] MEDS: ALPRAZolam 0.5 MG TAB PO PRN (11:39)
--- NOTE | 2018-11-27 11:56 | Progress Note ---
Assessment and Plan Assessment and plan: Acute sepsis, Present on admission with fevers, leukopenia, tachycardia. Likely secondary to pneumonia. Resolved. Completed pneumonia treatment. Pulmonary nodules in immunocompromised patient, Broad differential in patient off ART. In the setting of cavitation must rule out TB. Continue airborne precautions until it is ruled out. Other differential: pulmonary Cryptococcosis (however serum Ag is negative), PJP though does not have classic imaging findings (seems unlikely with negative Fungitell), Histoplasmosis/blastomycosis (Urine Ag negative for both). ? bacterial pneumonia v/s [place] / malignancy. s/p bronchoscopy by Dr. Delgado 11/20/2018. BAL 11/20/2018 AFB smear x 1 rare AFB BAL 11/20/2018 AFB smear x 1 rare AFB ?TB, awaiting M.TB PCR -restarted airborne isolation, till MTB PCR results are back and negative HIV/AIDS CD4: 124. Viral load is high at 6 million. Would recommend holding off on starting ART until above ruled out. On OI prophylaxis with Bactrim. generalized rash, ? bacillary angiomatosis vs Kaposi sarcoma vs disseminated Crypto (unlikely given negative Ag). S/P skin biopsy. Could also be from syphilis. 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 Midline has been placed. Needs funding for IV antibiotics as patient is unfunded. DVT prophylaxis Disposition; continue inpatient care till PCR results come back. History Interval history: Patient was seen and evaluated this morning. Patient didn't have any com plaints. Hospitalist Physical - Physical exam Narrative exam: Not in cardiopulmonary distress. The patient appeared well nourished and normally developed. Vital signs as documented. Head exam is unremarkable. No scleral icterus . Neck is without jugular venous distension, thyromegaly, or carotid bruits. Lungs are clear to auscultation. Cardiac exam reveals regular rate and Rhythm. Abdominal exam reveals normal bowel sounds, no masses, no organomegaly and no aortic enlargement. Extremities are nonedematous and both femoral and pedal pulses are normal. SENIOR ADMINISTRATIVE SUPPORT: Alert and oriented 3. No focal weakness. SKIN; molluscum contagiosum. Skin eruption all over. - Constitutional Vitals: Temp Pulse Resp BP Pulse Ox 98.3 F 79 24 122/78 99 11/27/18 04:57 11/27/18 04:57 11/27/18 04:57 11/27/18 04:57 11/27/18 04:57 General appearance: Present: no acute distress, well-nourished Results - Labs CBC & Chem 7: 11/17/18 08:16 11/17/18 08:16 Labs: Laboratory Last Values WBC 2.9 K/mm3 (4.5-11.0) L 11/17/18 08:16 RBC 4.88 M/mm3 (3.65-5.03) 11/17/18 08:16 Hgb 11.4 gm/dl (11.8-15.2) L 11/17/18 08:16 Hct 35.6 % (35.5-45.6) 11/17/18 08:16 MCV 73 fl (84-94) L 11/17/18 08:16 MCH 23 pg (28-32) L 11/17/18 08:16 MCHC 32 % (32-34) 11/17/18 08:16 RDW 15.1 % (13.2-15.2) 11/17/18 08:16 Plt Count 152 K/mm3 (140-440) 11/17/18 08:16 Lymph % (Auto) Steam Service Inspector 11/13/18 06:11 Banks % (Auto) Steam Service Inspector 11/13/18 06:11 Eos % (Auto) Steam Service Inspector 11/13/18 06:11 Baso % (Auto) Steam Service Inspector 11/13/18 06:11 Lymph # Steam Service Inspector 11/13/18 06:11 Banks # Steam Service Inspector 11/13/18 06:11 Eos # Steam Service Inspector 11/13/18 06:11 Baso # Steam Service Inspector 11/13/18 06:11 Add Manual Diff Complete 11/17/18 08:16 Total Counted 100 11/17/18 08:16 Seg Neutrophils % Steam Service Inspector 11/13/18 06:11 Seg Neuts % (Manual) 53.0 % (40.0-70.0) 11/17/18 08:16 8.0 % 11/17/18 08:16 25.0 % (13.4-35.0) 11/17/18 08:16 Reactive Lymphs % (Man) 3.0 % 11/17/18 08:16 10.0 % (0.0-7.3) H 11/17/18 08:16 0 % (0.0-4.3) 11/17/18 08:16 0 % (0.0-1.8) 11/17/18 08:16 1.0 % 11/17/18 08:16 0 % 11/17/18 08:16 0 % 11/17/18 08:16 0 % 11/17/18 08:16 Nucleated RBC % Not Reportable 11/17/18 08:16 Seg Neutrophils # Steam Service Inspector 11/13/18 06:11 Seg Neutrophils # Man 1.5 K/mm3 (1.8-7.7) L 11/17/18 08:16 Band Neutrophils # 0.2 K/mm3 11/17/18 08:16 Abs Lymphs (Manual) See scanned result 11/13/18 14:29 0.7 K/mm3 (1.2-5.4) L 11/17/18 08:16 Abs React Lymphs (Man) 0.1 K/mm3 11/17/18 08:16 0.3 K/mm3 (0.0-0.8) 11/17/18 08:16 0.0 K/mm3 (0.0-0.4) 11/17/18 08:16 0.0 K/mm3 (0.0-0.1) 11/17/18 08:16 0.0 K/mm3 11/17/18 08:16 0.0 K/mm3 11/17/18 08:16 0.0 K/mm3 11/17/18 08:16 Blast Cells # 0.0 K/mm3 11/17/18 08:16 WBC Morphology Not Reportable 11/17/18 08:16 Hypersegmented Neuts Not Reportable 11/17/18 08:16 Hyposegmented Neuts Not Reportable 11/17/18 08:16 Hypogranular Neuts Not Reportable 11/17/18 08:16 Not Reportable 11/17/18 08:16 Not Reportable 11/17/18 08:16 Not Reportable 11/17/18 08:16 Not Reportable 11/17/18 08:16 Not Reportable 11/17/18 08:16 Not Reportable 11/17/18 08:16 Consistent w auto 09/16/19 08:16 Not Reportable 11/17/18 08:16 Plt Clumps, EDTA Not Reportable 11/17/18 08:16 Not Reportable 11/17/18 08:16 Not Reportable 11/17/18 08:16 Not Reportable 11/17/18 08:16 Plt Morphology Comment Not Reportable 11/17/18 08:16 RBC Morphology Not Reportable 11/17/18 08:16 Dimorphic RBCs Not Reportable 11/17/18 08:16 Not Reportable 11/17/18 08:16 1+ 11/17/18 08:16 Not Reportable 11/17/18 08:16 Not Reportable 11/17/18 08:16 Not Reportable 11/17/18 08:16 Not Reportable 11/17/18 08:16 Not Reportable 11/17/18 08:16 Not Reportable 11/17/18 08:16 Not Reportable 11/17/18 08:16 Not Reportable 11/17/18 08:16 Not Reportable 11/17/18 08:16 Not Reportable 11/17/18 08:16 Not Reportable 11/17/18 08:16 Not Reportable 11/17/18 08:16 Not Reportable 11/17/18 08:16 Not Reportable 11/17/18 08:16 Not Reportable 11/17/18 08:16 Not Reportable 11/17/18 08:16 Not Reportable 11/17/18 08:16 Acanthocytes (Spur) Not Reportable 11/17/18 08:16 Rouleaux Not Reportable 11/17/18 08:16 Not Reportable 11/17/18 08:16 Not Reportable 11/17/18 08:16 Not Reportable 11/17/18 08:16 Not Reportable 11/17/18 08:16 Hem Pathologist Commnt No 11/17/18 08:16 PT 13.0 Sec. (12.2-14.9) 11/14/18 14:06 INR 1.01 (0.87-1.13) 11/14/18 14:06 APTT 38.2 Sec. (24.2-36.6) H 11/14/18 14:06 Sodium 141 mmol/L (137-145) 11/17/18 08:16 Potassium 4.5 mmol/L (3.6-5.0) 11/17/18 08:16 Chloride 104.8 mmol/L (98-107) 11/17/18 08:16 Carbon Dioxide 28 mmol/L (22-30) 11/17/18 08:16 13 mmol/L 11/17/18 08:16 BUN 9 mg/dL (9-20) 11/17/18 08:16 0.7 mg/dL (0.8-1.5) L 11/17/18 08:16 Estimated GFR > 60 ml/min 11/17/18 08:16 13 % 11/17/18 08:16 Glucose 84 mg/dL (75-100) 11/17/18 08:16 5.5 % (4-6) 11/12/18 14:22 Lactic Acid 1.50 mmol/L (0.7-2.0) 11/12/18 15:22 Calcium 9.1 mg/dL (8.4-10.2) 11/17/18 08:16 0.20 mg/dL (0.1-1.2) 11/17/18 08:16 AST 63 units/L (5-40) H 11/17/18 08:16 ALT 41 units/L (7-56) 11/17/18 08:16 72 units/L (35-129) 11/17/18 08:16 8.8 g/dL (6.3-8.2) H 11/17/18 08:16 3.1 g/dL (3.9-5) L 11/17/18 08:16 0.5 % 11/17/18 08:16 Fluid Color Red 11/20/18 Unknown Fluid Appearance Bloody 11/20/18 Unknown Fluid WBC 575 /mm3 11/20/18 Unknown Fluid RBC 98360 /mm3 11/20/18 Unknown Fluid Seg Neutrophils 94.0 % 11/20/18 Unknown Fluid Lymphocytes 5.0 % 11/20/18 Unknown Fluid Reactive Lymphs 0 % 11/20/18 Unknown Fluid Monocytes 1.0 % 11/20/18 Unknown Fluid Eosinophils 0 % 11/20/18 Unknown Fluid Basophils 0 % 11/20/18 Unknown Fluid Comment Diff performed 11/20/18 Unknown Clear 11/14/18 Unknown Colorless 11/14/18 Unknown 30 /mm3 (1-10) 11/14/18 Unknown 294 /mm3 (0-0) 11/14/18 Unknown CSF Seg Neutrophils 0 % (0-6) 11/14/18 Unknown 99.0 % (40-80) 11/14/18 Unknown CSF Reactive Lymphs 0 % 11/14/18 Unknown 1.0 % (15-45) 11/14/18 Unknown 0 % 11/14/18 Unknown 0 % 11/14/18 Unknown C 11/14/18 Unknown 52 mg/dL 11/17/18 Unknown 35 mg/dL 11/17/18 Unknown Reactive 1:2 (Nonreactive) H 11/17/18 Unknown Lymph Enumerat CD4/CD8 See scanned result 11/13/18 14:29 % CD3 Cells See scanned result 11/13/18 14:29 See scanned result 11/13/18 14:29 % CD4 Cells See scanned result 11/13/18 14:29 See scanned result 11/13/18 14:29 % CD8 Cells See scanned result 11/13/18 14:29 See scanned result 11/13/18 14:29 % CD19 Cells See scanned result 11/13/18 14:29 See scanned result 11/13/18 14:29 RPR Titer 1:128 11/12/18 14:22 RPR Reactive (Nonreactive) 11/12/18 14:22 T.pallidum Ab (FTA-ABS) Reactive (Nonreactive) H 11/12/18 14:22 C.trachomatis DNA (SDA) Not detected (Not Detected) 11/15/18 06:20 Non-reactive (NonReactive) 11/13/18 14:29 HIV-1 RNA PCR copies/ml [id number] Copies/mL H 11/13/18 14:29 6.46 Log cps/mL H 11/13/18 14:29 N.gonorrhoeae DNA (SDA) Not detected (Not Detected) 11/15/18 06:20 11/20/18 Unknown Fungal Id Prelim 11/20/18 Unknown Flexitest 1 11/14/18 12:50 Active Medications - Current Medications Current Medications: Generic Name Dose Route Start Last Admin Trade Name Freq PRN Reason Stop Dose Admin Acetaminophen 650 mg 11/12/18 21:59 11/25/18 09:11 Tylenol PO 650 mg Q4H PRN Administration Pain MILD(1-3)/Fever >100.5/FALK Acetaminophen/Butalbital/Caffeine 2 tab 11/18/18 14:29 11/27/18 09:18 Fioricet PO 2 tab Q4H PRN Administration Headache Albuterol 2.5 mg 11/12/18 22:02 11/13/18 02:53 Proventil IH 2.5 mg Q4HRT PRN Administration Shortness Of Breath Albuterol/Ipratropium 1 ampul 11/19/18 20:00 11/26/18 19:32 Duoneb *Not For Prn Use* IH 1 ampul BIDRT WIN Administration Alprazolam 0.5 mg 11/24/18 16:56 11/27/18 11:39 Xanax PO 0.5 mg Q8H PRN Administration Anxiety Enoxaparin Sodium 40 mg 11/13/18 10:00 11/27/18 09:19 Lovenox SUB-Q 40 mg QDAY WIN Administration Fluticasone Propionate 100 mcg 11/13/18 19:00 11/27/18 11:20 Flonase NS 100 mcg QDAY WIN Administration Hydromorphone HCl 0.5 mg 11/12/18 21:59 11/18/18 08:43 Dilaudid IV 0.5 mg Q3H PRN Administration Pain , Severe (7-10) Sodium Chloride 1,000 mls @ 75 mls/hr 11/13/18 08:00 11/27/18 09:18 Nacl 0.9% 1000 Ml IV 75 mls/hr DIRECT WIN Administration Penicillin G Potassium 4 mil. 50 mls @ 100 mls/hr 11/17/18 16:00 11/27/18 11:15 units/ Sodium Chloride IV 11/30/18 22:29 100 mls/hr Q4HR WIN Administration Ondansetron HCl 4 mg 11/12/18 21:59 11/23/18 07:27 Zofran IV 4 mg Q8H PRN Administration Nausea And Vomiting Oxycodone/Acetaminophen 1 tab 11/12/18 21:59 11/26/18 22:12 Percocet 5/325 PO 1 tab Q6H PRN Administration Pain, Moderate (4-6) Sodium Chloride 10 ml 11/12/18 22:00 11/27/18 09:20 Sodium Chloride Flush Syringe 10 Ml IV 10 ml BID WIN Administration Sodium Chloride 10 ml 11/12/18 21:59 Sodium Chloride Flush Syringe 10 Ml IV PRN PRN LINE FLUSH Temazepam 15 mg 11/19/18 22:16 11/26/18 22:12 Restoril PO 15 mg QHS PRN Administration Sleep Trimethoprim/Sulfamethoxazole 1 each 11/19/18 10:00 11/27/18 09:18 Bactrim Ds PO 1 each DAILY WIN Administration Nutrition/Malnutrition Assess - Dietary Evaluation Nutrition/Malnutrition Findings: Nutrition Notes Start: 11/13/18 09:49 Freq: Status: Active Protocol: Document 11/27/18 11:13 KS (Rec: 11/27/18 11:53 KS [id number]) Co-Sign 11/27/18 11:13 LM Nutrition Notes Initial or Follow up Brief Note Weight 68.9 kg Subjective/Other Information Screened for low BMI. Wt entered incorrectly likely due to human error. Most recent wt noted to be 68.9kg. Nutrition Intervention Follow-Up By: 11/28/18 Additional Comments Follow for PO and ONS intakes
--- NOTE | 2018-11-27 14:28 | Progress Note ---
Assessment and Plan Cultures: BCx 11/12 - NGTD 11/13/2018 serum crypto Ag: negative Fungitell <31 Histoplasma Ur Ag: negative Blasto Ur Ag: Negative Bartonella PCR: Negative AFB smears x 2 negative BAL 11/20/2018 AFB smear x 1 rare AFB Assessment: 38 yo M PMHx HIV/AIDS not on ART admitted with fevers, pneumonia. 1. Acute sepsis - present on admission with fevers, leukopenia, tachycardia. Likely secondary to pneumonia. Resolved. Completed pneumonia treatment. 2. Pulmonary nodules in immunocompromised patient: broad differential in patient off ART. In the setting of cavitation must rule out TB. Other differential: pulmonary Cryptococcosis (however serum Ag is negative), PJP though does not have classic imaging findings (seems unlikely with negative Fungitell), Histoplasmosis/blastomycosis (Urine Ag negative for both). BAL cytology negative for malignancy, fungal. ? bacterial pneumonia v/s [place] v/s malignancy. s/p bronchoscopy by Dr. Delgado 11/20/2018. BAL 11/20/2018 AFB smear x 1 rare AFB. Continue airborne precautions until TB is ruled out. Depending on clinical course, may warrant a repeat CT chest to assess progression. 3. HIV/AIDS - CD4: 124. Viral load is high at 6 million. Would recommend holding off on starting ART until above ruled out. On OI prophylaxis with Bactrim. 4. Rash - Biopsy report from [facility] suggests that findings highly likely from syphilis related rash, unlikely [place]. 5. Neurosyphilis - RPR 1:128. LP shows 30 WBC, all lymphocytes. CSF VDRL also positive. Continue to treat neurosyphilis with 2 weeks of IV penicillin. Recs: - BAL 11/20/2018 AFB smear x 1 rare AFB, awaiting M.TB PCR. I again discussed with Afua and Wes from Microbiology lab today, no results yet. They are awaiting for broth culture to grow to perform the MTB PCR. Sample is at [facility] - hence continue airborne isolation, till MTB PCR results are back and negative. Patient cannot leave AMA till TB is ruled out since it would be a public health risk - continue IV penicillin G 24 million units daily ending 11/30/2018 to complete 14 days - continue PO Bactrim DS daily for prophylaxis - case management orders already placed for OPAT arrangements - will need to follow up outpatient to initiate HAART and follow up on the pending studies (ID field clinical engineer already notified) An Brock MD [facility] C: [phone] Subjective Date of service: 11/27/18 Principal diagnosis: pneumonia, HIV-AIDS, molluscum contagiosum Interval history: No complaints. no fever. Wants to know when he can go home. Objective - Exam Narrative Exam: Physical Exam: Constitutional: Alert, cooperative. No acute distress Head, Ears, Nose: Normocephalic, atraumatic. External ears, nose normal Eyes: Conjunctivae/corneas clear. No icterus. No ptosis. Neck: Supple, no meningeal signs Oral: no thrush Cardiovascular: S1, S2 normal. Respiratory: Good air entry, clear to auscultation bilaterally GI: Soft, non-tender; bowel sounds normal. No peritoneal signs Musculoskeletal: No pedal edema, no cyanosis. Skin: several purple plaques + especially on lower extremities. Pearly papular lesions near eyelid. Hem/Lymphatic: No palpable cervical or supraclavicular nodes. No lymphangitis Psych: Mood ok. Affect normal Neurological: Awake, alert, oriented. No gross abnormality. - Constitutional Vitals: Vital Signs Temp Pulse Resp BP Pulse Ox 97.6 F 86 19 111/64 97 11/27/18 12:14 11/27/18 12:14 11/27/18 12:14 11/27/18 12:14 11/27/18 12:14 Temperature -Last 24 Hours Temperature 97.6 F Temperature 98.3 F Temperature 98.5 F Temperature 98.5 F - Labs CBC & Chem 7: 11/17/18 08:16 11/17/18 08:16
[2018-11-27] MEDS: oxyCODONE /ACETAMINOPHEN 5-325MG TAB PO PRN ×2 (17:12→23:45)
[2018-11-27] MEDS: ACETAMINOPHEN 325 MG TAB PO PRN (18:38)
[2018-11-27] MEDS: ONDANSETRON 4 MG/2 ML INJ IV PRN (18:38)
[2018-11-27] MEDS: IPRATROPIUM/ALBUTEROL SULFATE 3 ML AMPUL.NEB IH SCH (20:57)
[2018-11-27] MEDS: TEMAZEPAM 15 MG CAP PO PRN (23:45)
[2018-11-28] MEDS: SODIUM CHLORIDE 0.9% 1000 ML 1,000 ML IV SCH ×2 (01:48→17:59)
[2018-11-28] MEDS: PENICILLIN G POTASSIUM 4 MIL.UNITS in SODIUM CHLORIDE 0.9% 50 ML IV SCH ×6 (03:08→22:34)
[2018-11-28] MEDS: ONDANSETRON 4 MG/2 ML INJ IV PRN (06:46)
[2018-11-28] MEDS: IPRATROPIUM/ALBUTEROL SULFATE 3 ML AMPUL.NEB IH SCH ×3 (08:14→20:16)
[2018-11-28] MEDS: ENOXAPARIN 40 MG/0.4 ML INJ SUB-Q SCH (10:30)
[2018-11-28] MEDS: SULFAMETHOXAZOLE/TRIMETHOPRIM 800/160MG DS TAB PO SCH (10:30)
[2018-11-28] MEDS: oxyCODONE /ACETAMINOPHEN 5-325MG TAB PO PRN ×3 (10:31→22:33)
[2018-11-28] MEDS: FLUTICASONE PROPIONATE NASAL SPRAY 16 GM NS SCH (10:33)
[2018-11-28] MEDS: ACETAMINOPHEN 325 MG TAB PO PRN (11:21)
--- NOTE | 2018-11-28 13:20 | Progress Note ---
Assessment and Plan Cultures: BCx 11/12 - NGTD 11/13/2018 serum crypto Ag: negative Fungitell <31 Histoplasma Ur Ag: negative Blasto Ur Ag: Negative Bartonella PCR: Negative AFB smears x 2 negative BAL 11/20/2018 AFB smear x 1 rare AFB Assessment: 38 yo M PMHx HIV/AIDS not on ART admitted with fevers, pneumonia. 1. Acute sepsis - present on admission with fevers, leukopenia, tachycardia. Likely secondary to pneumonia. Resolved. Completed pneumonia treatment. 2. Pulmonary nodules with an area of cavitary infiltrate in immunocompromised patient: broad differential in patient off ART. In the setting of cavitation must rule out TB. Other differential: pulmonary Cryptococcosis (however serum Ag is negative), PJP though does not have classic imaging findings (seems unlikely with negative Fungitell), Histoplasmosis/blastomycosis (Urine Ag negative for both). BAL cytology negative for malignancy, fungal. ? bacterial pneumonia v/s [place] v/s malignancy. s/p bronchoscopy by Dr. Delgado 11/20/2018. BAL 11/20/2018 AFB smear x 1 rare AFB. Continue airborne precautions until TB is ruled out. Depending on clinical course, may warrant a repeat CT chest to assess progression. 3. HIV/AIDS - CD4: 124. Viral load is high at 6 million. Would recommend holding off on starting ART until above ruled out. On OI prophylaxis with Bactrim. 4. Rash - Biopsy report from [facility] suggests that findings highly likely from syphilis related rash, unlikely [place]. 5. Neurosyphilis - RPR 1:128. LP shows 30 WBC, all lymphocytes. CSF VDRL also positive. Continue to treat neurosyphilis with 2 weeks of IV penicillin. Recs: - BAL 11/20/2018 AFB smear x 1 rare AFB, awaiting M.TB PCR. Per discussion with Microbiology lab, no results yet. They are awaiting for broth culture to grow to perform the MTB PCR. Sample is at [facility] - hence continue airborne isolation, till MTB PCR results are back and negative. Patient cannot leave AMA till TB is ruled out since it would be a public health risk - continue IV penicillin G 24 million units daily ending 11/30/2018 to complete 14 days - continue PO Bactrim DS daily for prophylaxis - will need to follow up outpatient to initiate HAART (ID clinic physician director was already notified) An Brock MD FACP [facility] C: [phone] Subjective Date of service: 11/28/18 Principal diagnosis: pneumonia, HIV-AIDS, molluscum contagiosum Interval history: No complaints. Lying in bed. Has friend at bedside. Tolerating IV Penicillin. Objective - Exam Narrative Exam: Physical Exam: Constitutional: Alert, cooperative. No acute distress Head, Ears, Nose: Normocephalic, atraumatic. External ears, nose normal Eyes: Conjunctivae/corneas clear. No icterus. No ptosis. Neck: Supple, no meningeal signs Oral: no thrush Cardiovascular: S1, S2 normal. Respiratory: Good air entry, clear to auscultation bilaterally GI: Soft, non-tender; bowel sounds normal. No peritoneal signs Musculoskeletal: No pedal edema, no cyanosis. Skin: several purple plaques + especially on lower extremities. Pearly papular lesions near eyelid. Hem/Lymphatic: No palpable cervical or supraclavicular nodes. No lymphangitis Psych: Mood ok. Affect normal Neurological: Awake, alert, oriented. No gross abnormality. - Constitutional Vitals: Vital Signs Temp Pulse Resp BP Pulse Ox 98.0 F 84 20 107/64 95 11/28/18 05:41 11/28/18 08:15 11/28/18 11:21 11/28/18 05:41 11/28/18 05:41 Temperature -Last 24 Hours Temperature 98.0 F Temperature 98.7 F Temperature 98.5 F - Labs CBC & Chem 7: 11/17/18 08:16 11/17/18 08:16
--- NOTE | 2018-11-28 14:41 | Progress Note ---
Assessment and Plan Assessment and plan: Acute sepsis, Present on admission with fevers, leukopenia, tachycardia. Likely secondary to pneumonia. Resolved. Completed pneumonia treatment. Pulmonary nodules in immunocompromised patient, Broad differential in patient off ART. In the setting of cavitation must rule out TB. Continue airborne precautions until it is ruled out. Other differential: pulmonary Cryptococcosis (however serum Ag is negative), PJP though does not have classic imaging findings (seems unlikely with negative Fungitell), Histoplasmosis/blastomycosis (Urine Ag negative for both). ? bacterial pneumonia v/s [place] / malignancy. s/p bronchoscopy by Dr. Delgado 11/20/2018. BAL 11/20/2018 AFB smear x 1 rare AFB BAL 11/20/2018 AFB smear x 1 rare AFB ?TB, awaiting M.TB PCR -restarted airborne isolation, till MTB PCR results are back and negative HIV/AIDS CD4: 124. Viral load is high at 6 million. Would recommend holding off on starting ART until above ruled out. On OI prophylaxis with Bactrim. generalized rash, ? bacillary angiomatosis vs Kaposi sarcoma vs disseminated Crypto (unlikely given negative Ag). S/P skin biopsy. Could also be from syphilis. 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 Midline has been placed. Needs funding for IV antibiotics as patient is unfunded. DVT prophylaxis Disposition; continue inpatient care till PCR results come back. History Interval history: Patient was seen and evaluated this morning. Patient is c/o he is confined in isolation, frustrated and wants to go home. Hospitalist Physical - Physical exam Narrative exam: Not in cardiopulmonary distress. The patient appeared well nourished and normally developed. Vital signs as documented. Head exam is unremarkable. No scleral icterus . Neck is without jugular venous distension, thyromegaly, or carotid bruits. Lungs are clear to auscultation. Cardiac exam reveals regular rate and Rhythm. Abdominal exam reveals normal bowel sounds, no masses, no organomegaly and no aortic enlargement. Extremities are nonedematous and both femoral and pedal pulses are normal. LEATHER SOFTENER: Alert and oriented 3. No focal weakness. SKIN; molluscum contagiosum. Skin eruption all over. - Constitutional Vitals: Temp Pulse Resp BP Pulse Ox 98.0 F 84 20 107/64 95 11/28/18 05:41 11/28/18 08:15 11/28/18 11:21 11/28/18 05:41 11/28/18 05:41 General appearance: Present: no acute distress, well-nourished Results - Labs CBC & Chem 7: 11/17/18 08:16 11/17/18 08:16 Labs: Laboratory Last Values WBC 2.9 K/mm3 (4.5-11.0) L 11/17/18 08:16 RBC 4.88 M/mm3 (3.65-5.03) 11/17/18 08:16 Hgb 11.4 gm/dl (11.8-15.2) L 11/17/18 08:16 Hct 35.6 % (35.5-45.6) 11/17/18 08:16 MCV 73 fl (84-94) L 11/17/18 08:16 MCH 23 pg (28-32) L 11/17/18 08:16 MCHC 32 % (32-34) 11/17/18 08:16 RDW 15.1 % (13.2-15.2) 11/17/18 08:16 Plt Count 152 K/mm3 (140-440) 11/17/18 08:16 Lymph % (Auto) Senior Front End [employer] Developer 11/13/18 06:11 [place] % (Auto) Senior Front End Web Developer 11/13/18 06:11 Eos % (Auto) Senior Front End Web Developer 11/13/18 06:11 Baso % (Auto) Senior Front End Web Developer 11/13/18 06:11 Lymph # Senior Front End Web Developer 11/13/18 06:11 [place] # Senior Front End Web Developer 11/13/18 06:11 Eos # Senior Front End Web Developer 11/13/18 06:11 Baso # Senior Front End Web Developer 11/13/18 06:11 Add Manual Diff Complete 11/17/18 08:16 Total Counted 100 11/17/18 08:16 Seg Neutrophils % Senior Front End Web Developer 11/13/18 06:11 Seg Neuts % (Manual) 53.0 % (40.0-70.0) 11/17/18 08:16 8.0 % 11/17/18 08:16 25.0 % (13.4-35.0) 11/17/18 08:16 Reactive Lymphs % (Man) 3.0 % 11/17/18 08:16 10.0 % (0.0-7.3) H 11/17/18 08:16 0 % (0.0-4.3) 11/17/18 08:16 0 % (0.0-1.8) 11/17/18 08:16 1.0 % 11/17/18 08:16 0 % 11/17/18 08:16 0 % 11/17/18 08:16 0 % 11/17/18 08:16 Nucleated RBC % Not Reportable 11/17/18 08:16 Seg Neutrophils # Senior Front End Web Developer 11/13/18 06:11 Seg Neutrophils # Man 1.5 K/mm3 (1.8-7.7) L 11/17/18 08:16 Band Neutrophils # 0.2 K/mm3 11/17/18 08:16 Abs Lymphs (Manual) See scanned result 11/13/18 14:29 0.7 K/mm3 (1.2-5.4) L 11/17/18 08:16 Abs React Lymphs (Man) 0.1 K/mm3 11/17/18 08:16 0.3 K/mm3 (0.0-0.8) 11/17/18 08:16 0.0 K/mm3 (0.0-0.4) 11/17/18 08:16 0.0 K/mm3 (0.0-0.1) 11/17/18 08:16 0.0 K/mm3 11/17/18 08:16 0.0 K/mm3 11/17/18 08:16 0.0 K/mm3 11/17/18 08:16 Blast Cells # 0.0 K/mm3 11/17/18 08:16 WBC Morphology Not Reportable 11/17/18 08:16 Hypersegmented Neuts Not Reportable 11/17/18 08:16 Hyposegmented Neuts Not Reportable 11/17/18 08:16 Hypogranular Neuts Not Reportable 11/17/18 08:16 Not Reportable 11/17/18 08:16 Not Reportable 11/17/18 08:16 Not Reportable 11/17/18 08:16 Not Reportable 11/17/18 08:16 Not Reportable 11/17/18 08:16 Not Reportable 11/17/18 08:16 Consistent w auto 11/17/18 08:16 Not Reportable 11/17/18 08:16 Plt Clumps, EDTA Not Reportable 11/17/18 08:16 Not Reportable 11/17/18 08:16 Not Reportable 11/17/18 08:16 Not Reportable 11/17/18 08:16 Plt Morphology Comment Not Reportable 11/17/18 08:16 RBC Morphology Not Reportable 11/17/18 08:16 Dimorphic RBCs Not Reportable 11/17/18 08:16 Not Reportable 11/17/18 08:16 1+ 11/17/18 08:16 Not Reportable 11/17/18 08:16 Not Reportable 11/17/18 08:16 Not Reportable 11/17/18 08:16 Not Reportable 11/17/18 08:16 Not Reportable 11/17/18 08:16 Not Reportable 11/17/18 08:16 Not Reportable 11/17/18 08:16 Not Reportable 11/17/18 08:16 Not Reportable 11/17/18 08:16 Not Reportable 11/17/18 08:16 Not Reportable 11/17/18 08:16 Not Reportable 11/17/18 08:16 Not Reportable 11/17/18 08:16 Not Reportable 11/17/18 08:16 Not Reportable 11/17/18 08:16 Not Reportable 11/17/18 08:16 Not Reportable 11/17/18 08:16 Acanthocytes (Spur) Not Reportable 11/17/18 08:16 Rouleaux Not Reportable 11/17/18 08:16 Not Reportable 11/17/18 08:16 Not Reportable 11/17/18 08:16 Not Reportable 11/17/18 08:16 Not Reportable 11/17/18 08:16 Hem Pathologist Commnt No 11/17/18 08:16 PT 13.0 Sec. (12.2-14.9) 11/14/18 14:06 INR 1.01 (0.87-1.13) 11/14/18 14:06 APTT 38.2 Sec. (24.2-36.6) H 11/14/18 14:06 Sodium 141 mmol/L (137-145) 11/17/18 08:16 Potassium 4.5 mmol/L (3.6-5.0) 11/17/18 08:16 Chloride 104.8 mmol/L (98-107) 11/17/18 08:16 Carbon Dioxide 28 mmol/L (22-30) 11/17/18 08:16 13 mmol/L 11/17/18 08:16 BUN 9 mg/dL (9-20) 11/17/18 08:16 0.7 mg/dL (0.8-1.5) L 11/17/18 08:16 Estimated GFR > 60 ml/min 11/17/18 08:16 13 % 11/17/18 08:16 Glucose 84 mg/dL (75-100) 11/17/18 08:16 5.5 % (4-6) 11/12/18 14:22 Lactic Acid 1.50 mmol/L (0.7-2.0) 11/12/18 15:22 Calcium 9.1 mg/dL (8.4-10.2) 11/17/18 08:16 0.20 mg/dL (0.1-1.2) 11/17/18 08:16 AST 63 units/L (5-40) H 11/17/18 08:16 ALT 41 units/L (7-56) 11/17/18 08:16 72 units/L (35-129) 11/17/18 08:16 8.8 g/dL (6.3-8.2) H 11/17/18 08:16 3.1 g/dL (3.9-5) L 11/17/18 08:16 0.5 % 11/17/18 08:16 Fluid Color Red 11/20/18 Unknown Fluid Appearance Bloody 11/20/18 Unknown Fluid WBC 575 /mm3 11/20/18 Unknown Fluid RBC 90318 /mm3 11/20/18 Unknown Fluid Seg Neutrophils 94.0 % 11/20/18 Unknown Fluid Lymphocytes 5.0 % 11/20/18 Unknown Fluid Reactive Lymphs 0 % 11/20/18 Unknown Fluid Monocytes 1.0 % 11/20/18 Unknown Fluid Eosinophils 0 % 11/20/18 Unknown Fluid Basophils 0 % 11/20/18 Unknown Fluid Comment Diff performed 11/20/18 Unknown Clear 11/14/18 Unknown Colorless 11/14/18 Unknown 30 /mm3 (1-10) 11/14/18 Unknown 294 /mm3 (0-0) 11/14/18 Unknown CSF Seg Neutrophils 0 % (0-6) 11/14/18 Unknown 99.0 % (40-80) 11/14/18 Unknown CSF Reactive Lymphs 0 % 11/14/18 Unknown 1.0 % (15-45) 11/14/18 Unknown 0 % 11/14/18 Unknown 0 % 11/14/18 Unknown C 11/14/18 Unknown 52 mg/dL 11/17/18 Unknown 35 mg/dL 11/17/18 Unknown Reactive 1:2 (Nonreactive) H 11/17/18 Unknown Lymph Enumerat CD4/CD8 See scanned result 11/13/18 14:29 % CD3 Cells See scanned result 11/13/18 14:29 See scanned result 11/13/18 14:29 % CD4 Cells See scanned result 11/13/18 14:29 See scanned result 11/13/18 14:29 % CD8 Cells See scanned result 11/13/18 14:29 See scanned result 11/13/18 14:29 % CD19 Cells See scanned result 11/13/18 14:29 See scanned result 11/13/18 14:29 RPR Titer 1:128 11/12/18 14:22 RPR Reactive (Nonreactive) 11/12/18 14:22 T.pallidum Ab (FTA-ABS) Reactive (Nonreactive) H 11/12/18 14:22 C.trachomatis DNA (SDA) Not detected (Not Detected) 11/15/18 06:20 Non-reactive (NonReactive) 11/13/18 14:29 HIV-1 RNA PCR copies/ml [id number] Copies/mL H 11/13/18 14:29 6.46 Log cps/mL H 11/13/18 14:29 N.gonorrhoeae DNA (SDA) Not detected (Not Detected) 11/15/18 06:20 11/20/18 Unknown Fungal Id Prelim 11/20/18 Unknown Flexitest 1 11/14/18 12:50 Active Medications - Current Medications Current Medications: Generic Name Dose Route Start Last Admin Trade Name Freq PRN Reason Stop Dose Admin Acetaminophen 650 mg 11/12/18 21:59 11/28/18 11:21 Tylenol PO 650 mg Q4H PRN Administration Pain MILD(1-3)/Fever >100.5/FAKL Acetaminophen/Butalbital/Caffeine 2 tab 11/18/18 14:29 11/27/18 09:18 Fioricet PO 2 tab Q4H PRN Administration Headache Albuterol 2.5 mg 11/12/18 22:02 11/13/18 02:53 Proventil IH 2.5 mg Q4HRT PRN Administration Shortness Of Breath Albuterol/Ipratropium 1 ampul 11/19/18 20:00 11/28/18 08:15 Duoneb *Not For Prn Use* IH 1 ampul BIDRT WIN Administration Alprazolam 0.5 mg 11/24/18 16:56 11/27/18 11:39 Xanax PO 0.5 mg Q8H PRN Administration Anxiety Enoxaparin Sodium 40 mg 11/13/18 10:00 11/28/18 10:30 Lovenox SUB-Q 40 mg QDAY WIN Administration Fluticasone Propionate 100 mcg 11/13/18 19:00 11/28/18 10:33 Flonase NS 100 mcg QDAY WIN Administration Hydromorphone HCl 0.5 mg 11/12/18 21:59 11/18/18 08:43 Dilaudid IV 0.5 mg Q3H PRN Administration Pain , Severe (7-10) Sodium Chloride 1,000 mls @ 75 mls/hr 11/13/18 08:00 11/28/18 01:48 Nacl 0.9% 1000 Ml IV 75 mls/hr DIRECT WIN Administration Penicillin G Potassium 4 mil. 50 mls @ 100 mls/hr 11/17/18 16:00 11/28/18 10:30 units/ Sodium Chloride IV 11/30/18 22:29 100 mls/hr Q4HR WIN Administration Ondansetron HCl 4 mg 11/12/18 21:59 11/28/18 06:46 Zofran IV 4 mg Q8H PRN Administration Nausea And Vomiting Oxycodone/Acetaminophen 1 tab 11/12/18 21:59 11/27/18 23:45 Percocet 5/325 PO 1 tab Q6H PRN Administration Pain, Moderate (4-6) Sodium Chloride 10 ml 11/12/18 22:00 09/27/19 10:31 Sodium Chloride Flush Syringe 10 Ml IV 10 ml BID WIN Administration Sodium Chloride 10 ml 11/12/18 21:59 Sodium Chloride Flush Syringe 10 Ml IV PRN PRN LINE FLUSH Temazepam 15 mg 11/19/18 22:16 11/27/18 23:45 Restoril PO 15 mg QHS PRN Administration Sleep Trimethoprim/Sulfamethoxazole 1 each 11/19/18 10:00 11/28/18 10:30 Bactrim Ds PO 1 each DAILY WIN Administration Nutrition/Malnutrition Assess - Dietary Evaluation Nutrition/Malnutrition Findings: Nutrition Notes Start: 11/13/18 09:49 Freq: Status: Active Protocol: Document 11/28/18 11:59 DW (Rec: 11/28/18 12:43 DW [id number]) Co-Sign 11/28/18 11:59 LP Nutrition Notes Initial or Follow up Reassessment Other Pertinent Diagnosis HIV Current Diet Regular w/Ensure Enlive BID Labs/Tests Reviewed Pertinent Medications Reviewed Height 5 ft 11 in Weight 68.9 kg [place] Body Weight (kg) 78.18 BMI 21.2 Subjective/Other Information Pt stated that his appetite is normal he has been eating 100 % of his meals when it is something he likes. Pt also stated that visitors bring him food from outside of the hospital. Pt drinkning 100% of ONS Percent of energy/protein needs met: 100%/100% Burn Absent Trauma Absent Minimum of two criteria No #1 Nutrition Diagnosis Predicted suboptimal energy intake As Evidenced by Signs and Symptoms Pt consuming 100% of meals Diagnosis Progress(for reassessment Resolved documentation) Is patient on ventilator? No Is Patient Ambulatory and/or Out of Bed Yes REE-([facility]-ambulatory/OOB) [ [id number] [id number]] Calculation Used for Recommendations [facility] Additional Notes Protein needs: 51g-63g/kg (0.8 -1g/kg) Fluid needs: 1ml/kcal Nutrition Intervention Change Diet Order: Regular Add Supplement/Snack (indicate name/kcal Ensure Enlive once daily /protein ) Provides kCal: 350 Provides Protein (gm) 20 Goal #1 Continue to meet at least 75% of protein and energy needs via PO/ONS intakes Anticipated Discharge Needs: Regular Diet Revisit per MD consult or patient Sign Off request:
[2018-11-28] MEDS: TEMAZEPAM 15 MG CAP PO PRN (22:33)
[2018-11-29] MEDS: PENICILLIN G POTASSIUM 4 MIL.UNITS in SODIUM CHLORIDE 0.9% 50 ML IV SCH ×6 (02:42→23:06)
[2018-11-29] MEDS: IPRATROPIUM/ALBUTEROL SULFATE 3 ML AMPUL.NEB IH SCH ×2 (08:21→21:56)
[2018-11-29] MEDS: oxyCODONE /ACETAMINOPHEN 5-325MG TAB PO PRN ×3 (10:03→23:05)
[2018-11-29] MEDS: SULFAMETHOXAZOLE/TRIMETHOPRIM 800/160MG DS TAB PO SCH (10:03)
[2018-11-29] MEDS: ENOXAPARIN 40 MG/0.4 ML INJ SUB-Q SCH (10:03)
[2018-11-29] MEDS: FLUTICASONE PROPIONATE NASAL SPRAY 16 GM NS SCH (10:05)
--- NOTE | 2018-11-29 13:38 | Progress Note ---
Assessment and Plan Assessment and plan: Acute sepsis, Present on admission with fevers, leukopenia, tachycardia. Likely secondary to pneumonia. Resolved. Completed pneumonia treatment. Pulmonary nodules in immunocompromised patient, Broad differential in patient off ART. In the setting of cavitation must rule out TB. Continue airborne precautions until it is ruled out. Other differential: pulmonary Cryptococcosis (however serum Ag is negative), PJP though does not have classic imaging findings (seems unlikely with negative Fungitell), Histoplasmosis/blastomycosis (Urine Ag negative for both). ? bacterial pneumonia v/s KS / malignancy. s/p bronchoscopy by Dr. Delgado 11/20/2018. BAL 11/20/2018 AFB smear x 1 rare AFB BAL 11/20/2018 AFB smear x 1 rare AFB ?TB, awaiting M.TB PCR -restarted airborne isolation, till MTB PCR results are back and negative HIV/AIDS CD4: 124. Viral load is high at 6 million. Would recommend holding off on starting ART until above ruled out. On OI prophylaxis with Bactrim. generalized rash, ? bacillary angiomatosis vs Kaposi sarcoma vs disseminated Crypto (unlikely given negative Ag). S/P skin biopsy. Could also be from syphilis. 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 Midline has been placed. Needs funding for IV antibiotics as patient is unfunded. DVT prophylaxis Disposition; continue inpatient care till PCR results come back. History Interval history: Patient was seen and evaluated this morning. Patient is c/o he is confined in isolation, frustrated and wants to go home. Hospitalist Physical - Physical exam Narrative exam: Not in cardiopulmonary distress. The patient appeared well nourished and normally developed. Vital signs as documented. Head exam is unremarkable. No scleral icterus . Neck is without jugular venous distension, thyromegaly, or carotid bruits. Lungs are clear to auscultation. Cardiac exam reveals regular rate and Rhythm. Abdominal exam reveals normal bowel sounds, no masses, no organomegaly and no aortic enlargement. Extremities are nonedematous and both femoral and pedal pulses are normal. 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 No focal weakness. SKIN; molluscum contagiosum. Skin eruption all over. - Constitutional Vitals: Temp Pulse Resp BP Pulse Ox 98.9 F 90 18 112/66 98 11/29/18 12:38 11/29/18 12:38 11/29/18 12:38 11/29/18 12:38 11/29/18 12:38 General appearance: Present: no acute distress, well-nourished Results - Labs CBC & Chem 7: 11/17/18 08:16 11/17/18 08:16 Labs: Laboratory Last Values WBC 2.9 K/mm3 (4.5-11.0) L 11/17/18 08:16 RBC 4.88 M/mm3 (3.65-5.03) 11/17/18 08:16 Hgb 11.4 gm/dl (11.8-15.2) L 11/17/18 08:16 Hct 35.6 % (35.5-45.6) 11/17/18 08:16 MCV 73 fl (84-94) L 11/17/18 08:16 MCH 23 pg (28-32) L 11/17/18 08:16 MCHC 32 % (32-34) 11/17/18 08:16 RDW 15.1 % (13.2-15.2) 11/17/18 08:16 Plt Count 152 K/mm3 (140-440) 11/17/18 08:16 Lymph % (Auto) Tack Cleaner 11/13/18 06:11 [place] % (Auto) Tack Cleaner 11/13/18 06:11 Eos % (Auto) Tack Cleaner 11/13/18 06:11 Baso % (Auto) Tack Cleaner 11/13/18 06:11 Lymph # Tack Cleaner 11/13/18 06:11 [place] # Tack Cleaner 11/13/18 06:11 Eos # Tack Cleaner 11/13/18 06:11 Baso # Tack Cleaner 11/13/18 06:11 Add Manual Diff Complete 11/17/18 08:16 Total Counted 100 11/17/18 08:16 Seg Neutrophils % Tack Cleaner 11/13/18 06:11 Seg Neuts % (Manual) 53.0 % (40.0-70.0) 11/17/18 08:16 8.0 % 11/17/18 08:16 25.0 % (13.4-35.0) 11/17/18 08:16 Reactive Lymphs % (Man) 3.0 % 11/17/18 08:16 10.0 % (0.0-7.3) H 11/17/18 08:16 0 % (0.0-4.3) 11/17/18 08:16 0 % (0.0-1.8) 11/17/18 08:16 1.0 % 11/17/18 08:16 0 % 11/17/18 08:16 0 % 11/17/18 08:16 0 % 11/17/18 08:16 Nucleated RBC % Not Reportable 11/17/18 08:16 Seg Neutrophils # Tack Cleaner 11/13/18 06:11 Seg Neutrophils # Man 1.5 K/mm3 (1.8-7.7) L 11/17/18 08:16 Band Neutrophils # 0.2 K/mm3 11/17/18 08:16 Abs Lymphs (Manual) See scanned result 11/13/18 14:29 0.7 K/mm3 (1.2-5.4) L 11/17/18 08:16 Abs React Lymphs (Man) 0.1 K/mm3 11/17/18 08:16 0.3 K/mm3 (0.0-0.8) 11/17/18 08:16 0.0 K/mm3 (0.0-0.4) 11/17/18 08:16 0.0 K/mm3 (0.0-0.1) 11/17/18 08:16 0.0 K/mm3 11/17/18 08:16 0.0 K/mm3 11/17/18 08:16 0.0 K/mm3 11/17/18 08:16 Blast Cells # 0.0 K/mm3 11/17/18 08:16 WBC Morphology Not Reportable 11/17/18 08:16 Hypersegmented Neuts Not Reportable 11/17/18 08:16 Hyposegmented Neuts Not Reportable 11/17/18 08:16 Hypogranular Neuts Not Reportable 11/17/18 08:16 Not Reportable 11/17/18 08:16 Not Reportable 11/17/18 08:16 Not Reportable 11/17/18 08:16 Not Reportable 11/17/18 08:16 Not Reportable 11/17/18 08:16 Not Reportable 11/17/18 08:16 Consistent w auto 11/17/18 08:16 Not Reportable 11/17/18 08:16 Plt Clumps, EDTA Not Reportable 11/17/18 08:16 Not Reportable 11/17/18 08:16 Not Reportable 11/17/18 08:16 Not Reportable 11/17/18 08:16 Plt Morphology Comment Not Reportable 11/17/18 08:16 RBC Morphology Not Reportable 11/17/18 08:16 Dimorphic RBCs Not Reportable 11/17/18 08:16 Not Reportable 11/17/18 08:16 1+ 11/17/18 08:16 Not Reportable 11/17/18 08:16 Not Reportable 11/17/18 08:16 Not Reportable 11/17/18 08:16 Not Reportable 11/17/18 08:16 Not Reportable 11/17/18 08:16 Not Reportable 11/17/18 08:16 Not Reportable 11/17/18 08:16 Not Reportable 11/17/18 08:16 Not Reportable 11/17/18 08:16 Not Reportable 11/17/18 08:16 Not Reportable 11/17/18 08:16 Not Reportable 11/17/18 08:16 Not Reportable 11/17/18 08:16 Not Reportable 11/17/18 08:16 Not Reportable 11/17/18 08:16 Not Reportable 11/17/18 08:16 Not Reportable 11/17/18 08:16 Acanthocytes (Spur) Not Reportable 11/17/18 08:16 Rouleaux Not Reportable 11/17/18 08:16 Not Reportable 11/17/18 08:16 Not Reportable 11/17/18 08:16 Not Reportable 11/17/18 08:16 Not Reportable 11/17/18 08:16 Hem Pathologist Commnt No 11/17/18 08:16 PT 13.0 Sec. (12.2-14.9) 11/14/18 14:06 INR 1.01 (0.87-1.13) 11/14/18 14:06 APTT 38.2 Sec. (24.2-36.6) H 11/14/18 14:06 Sodium 141 mmol/L (137-145) 11/17/18 08:16 Potassium 4.5 mmol/L (3.6-5.0) 11/17/18 08:16 Chloride 104.8 mmol/L (98-107) 11/17/18 08:16 Carbon Dioxide 28 mmol/L (22-30) 11/17/18 08:16 13 mmol/L 11/17/18 08:16 BUN 9 mg/dL (9-20) 11/17/18 08:16 0.7 mg/dL (0.8-1.5) L 11/17/18 08:16 Estimated GFR > 60 ml/min 11/17/18 08:16 13 % 11/17/18 08:16 Glucose 84 mg/dL (75-100) 11/17/18 08:16 5.5 % (4-6) 11/12/18 14:22 Lactic Acid 1.50 mmol/L (0.7-2.0) 11/12/18 15:22 Calcium 9.1 mg/dL (8.4-10.2) 11/17/18 08:16 0.20 mg/dL (0.1-1.2) 11/17/18 08:16 AST 63 units/L (5-40) H 11/17/18 08:16 ALT 41 units/L (7-56) 11/17/18 08:16 72 units/L (35-129) 11/17/18 08:16 8.8 g/dL (6.3-8.2) H 11/17/18 08:16 3.1 g/dL (3.9-5) L 11/17/18 08:16 0.5 % 11/17/18 08:16 Fluid Color Red 11/20/18 Unknown Fluid Appearance Bloody 11/20/18 Unknown Fluid WBC 575 /mm3 11/20/18 Unknown Fluid RBC 16750 /mm3 11/20/18 Unknown Fluid Seg Neutrophils 94.0 % 11/20/18 Unknown Fluid Lymphocytes 5.0 % 11/20/18 Unknown Fluid Reactive Lymphs 0 % 11/20/18 Unknown Fluid Monocytes 1.0 % 11/20/18 Unknown Fluid Eosinophils 0 % 11/20/18 Unknown Fluid Basophils 0 % 11/20/18 Unknown Fluid Comment Diff performed 11/20/18 Unknown Clear 11/14/18 Unknown Colorless 11/14/18 Unknown 30 /mm3 (1-10) 11/14/18 Unknown 294 /mm3 (0-0) 11/14/18 Unknown CSF Seg Neutrophils 0 % (0-6) 11/14/18 Unknown 99.0 % (40-80) 11/14/18 Unknown CSF Reactive Lymphs 0 % 11/14/18 Unknown 1.0 % (15-45) 11/14/18 Unknown 0 % 11/14/18 Unknown 0 % 11/14/18 Unknown C 11/14/18 Unknown 52 mg/dL 11/17/18 Unknown 35 mg/dL 11/17/18 Unknown Reactive 1:2 (Nonreactive) H 11/17/18 Unknown Lymph Enumerat CD4/CD8 See scanned result 11/13/18 14:29 % CD3 Cells See scanned result 11/13/18 14:29 See scanned result 11/13/18 14:29 % CD4 Cells See scanned result 11/13/18 14:29 See scanned result 11/13/18 14:29 % CD8 Cells See scanned result 11/13/18 14:29 See scanned result 11/13/18 14:29 % CD19 Cells See scanned result 11/13/18 14:29 See scanned result 11/13/18 14:29 RPR Titer 1:128 11/12/18 14:22 RPR Reactive (Nonreactive) 11/12/18 14:22 T.pallidum Ab (FTA-ABS) Reactive (Nonreactive) H 11/12/18 14:22 C.trachomatis DNA (SDA) Not detected (Not Detected) 11/15/18 06:20 Non-reactive (NonReactive) 11/13/18 14:29 HIV-1 RNA PCR copies/ml [id number] Copies/mL H 11/13/18 14:29 6.46 Log cps/mL H 11/13/18 14:29 N.gonorrhoeae DNA (SDA) Not detected (Not Detected) 11/15/18 06:20 11/20/18 Unknown Fungal Id Prelim 11/20/18 Unknown Flexitest 1 11/14/18 12:50 Active Medications - Current Medications Current Medications: Generic Name Dose Route Start Last Admin Trade Name Freq PRN Reason Stop Dose Admin Acetaminophen 650 mg 11/12/18 21:59 11/28/18 11:21 Tylenol PO 650 mg Q4H PRN Administration Pain MILD(1-3)/Fever >100.5/FALK Acetaminophen/Butalbital/Caffeine 2 tab 11/18/18 14:29 11/27/18 09:18 Fioricet PO 2 tab Q4H PRN Administration Headache Albuterol 2.5 mg 11/12/18 22:02 11/13/18 02:53 Proventil IH 2.5 mg Q4HRT PRN Administration Shortness Of Breath Albuterol/Ipratropium 1 ampul 11/19/18 20:00 11/29/18 08:21 Duoneb *Not For Prn Use* IH 1 ampul BIDRT WIN Administration Alprazolam 0.5 mg 11/24/18 16:56 11/27/18 11:39 Xanax PO 0.5 mg Q8H PRN Administration Anxiety Enoxaparin Sodium 40 mg 11/13/18 10:00 11/29/18 10:03 Lovenox SUB-Q 40 mg QDAY WIN Administration Fluticasone Propionate 100 mcg 11/13/18 19:00 11/29/18 10:05 Flonase NS 100 mcg QDAY WIN Administration Hydromorphone HCl 0.5 mg 11/12/18 21:59 11/18/18 08:43 Dilaudid IV 0.5 mg Q3H PRN Administration Pain , Severe (7-10) Sodium Chloride 1,000 mls @ 75 mls/hr 11/13/18 08:00 11/28/18 17:59 Nacl 0.9% 1000 Ml IV 75 mls/hr DIRECT WIN Administration Penicillin G Potassium 4 mil. 50 mls @ 100 mls/hr 11/17/18 16:00 11/29/18 10:05 units/ Sodium Chloride IV 11/30/18 22:29 100 mls/hr Q4HR WIN Administration Ondansetron HCl 4 mg 11/12/18 21:59 11/28/18 06:46 Zofran IV 4 mg Q8H PRN Administration Nausea And Vomiting Oxycodone/Acetaminophen 1 tab 11/12/18 21:59 11/29/18 10:03 Percocet 5/325 PO 1 tab Q6H PRN Administration Pain, Moderate (4-6) Sodium Chloride 10 ml 11/12/18 22:00 11/29/18 10:04 Sodium Chloride Flush Syringe 10 Ml IV 10 ml BID WIN Administration Sodium Chloride 10 ml 11/12/18 21:59 Sodium Chloride Flush Syringe 10 Ml IV PRN PRN LINE FLUSH Temazepam 15 mg 11/19/18 22:16 11/28/18 22:33 Restoril PO 15 mg QHS PRN Administration Sleep Trimethoprim/Sulfamethoxazole 1 each 11/19/18 10:00 11/29/18 10:03 Bactrim Ds PO 1 each DAILY WIN Administration Nutrition/Malnutrition Assess - Dietary Evaluation Nutrition/Malnutrition Findings: Nutrition Notes Start: 11/13/18 09:49 Freq: Status: Active Protocol: Document 11/28/18 11:59 DW (Rec: 11/28/18 12:43 DW [id number]) Co-Sign 11/28/18 11:59 LP Nutrition Notes Initial or Follow up Reassessment Other Pertinent Diagnosis HIV Current Diet Regular w/Ensure Enlive BID Labs/Tests Reviewed Pertinent Medications Reviewed Height 5 ft 11 in Weight 68.9 kg [place] Body Weight (kg) 78.18 BMI 21.2 Subjective/Other Information Pt stated that his appetite is normal he has been eating 100 % of his meals when it is something he likes. Pt also stated that visitors bring him food from outside of the hospital. Pt drinkning 100% of ONS Percent of energy/protein needs met: 100%/100% Burn Absent Trauma Absent Minimum of two criteria No #1 Nutrition Diagnosis Predicted suboptimal energy intake As Evidenced by Signs and Symptoms Pt consuming 100% of meals Diagnosis Progress(for reassessment Resolved documentation) Is patient on ventilator? No Is Patient Ambulatory and/or Out of Bed Yes REE-([facility]-ambulatory/OOB) [ 2126.969 [id number]] Calculation Used for Recommendations [facility] Additional Notes Protein needs: 51g-63g/kg (0.8 -1g/kg) Fluid needs: 1ml/kcal Nutrition Intervention Change Diet Order: Regular Add Supplement/Snack (indicate name/kcal Ensure Enlive once daily /protein ) Provides kCal: 350 Provides Protein (gm) 20 Goal #1 Continue to meet at least 75% of protein and energy needs via PO/ONS intakes Anticipated Discharge Needs: Regular Diet Revisit per MD consult or patient Sign Off request:
[2018-11-29] MEDS: SODIUM CHLORIDE 0.9% 1000 ML 1,000 ML IV SCH (14:38)
[2018-11-29] MEDS: TEMAZEPAM 15 MG CAP PO PRN (23:29)
[2018-11-30] MEDS: PENICILLIN G POTASSIUM 4 MIL.UNITS in SODIUM CHLORIDE 0.9% 50 ML IV SCH ×6 (03:54→22:37)
[2018-11-30] MEDS: SODIUM CHLORIDE 0.9% 1000 ML 1,000 ML IV SCH (05:56)
[2018-11-30] MEDS: IPRATROPIUM/ALBUTEROL SULFATE 3 ML AMPUL.NEB IH SCH ×2 (08:01→20:02)
[2018-11-30] MEDS: ALPRAZolam 0.5 MG TAB PO PRN ×2 (08:34→20:30)
[2018-11-30] MEDS: oxyCODONE /ACETAMINOPHEN 5-325MG TAB PO PRN ×2 (08:36→18:13)
[2018-11-30] MEDS: SULFAMETHOXAZOLE/TRIMETHOPRIM 800/160MG DS TAB PO SCH (09:07)
[2018-11-30] MEDS: ENOXAPARIN 40 MG/0.4 ML INJ SUB-Q SCH (09:07)
[2018-11-30] MEDS: FLUTICASONE PROPIONATE NASAL SPRAY 16 GM NS SCH (09:08)
--- NOTE | 2018-11-30 10:59 | Progress Note ---
Assessment and Plan Assessment and plan: Acute sepsis, Present on admission with fevers, leukopenia, tachycardia. Likely secondary to pneumonia. Resolved. Completed pneumonia treatment. Pulmonary nodules in immunocompromised patient, Broad differential in patient off ART. In the setting of cavitation must rule out TB. Continue airborne precautions until it is ruled out. Other differential: pulmonary Cryptococcosis (however serum Ag is negative), PJP though does not have classic imaging findings (seems unlikely with negative Fungitell), Histoplasmosis/blastomycosis (Urine Ag negative for both). ? bacterial pneumonia v/s KS / malignancy. s/p bronchoscopy by Dr. Delgado 11/20/2018. BAL 11/20/2018 AFB smear x 1 rare AFB BAL 11/20/2018 AFB smear x 1 rare AFB ?TB, awaiting M.TB PCR -restarted airborne isolation, till MTB PCR results are back and negative HIV/AIDS CD4: 124. Viral load is high at 6 million. Would recommend holding off on starting ART until above ruled out. On OI prophylaxis with Bactrim. generalized rash, ? bacillary angiomatosis vs Kaposi sarcoma vs disseminated Crypto (unlikely given negative Ag). S/P skin biopsy. Could also be from syphilis. 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 Midline has been placed. Needs funding for IV antibiotics as patient is unfunded. DVT prophylaxis Disposition; continue inpatient care till PCR results come back. History Interval history: Patient was seen and evaluated this morning. Patient is c/o he is confined in isolation, frustrated and wants to go home. Hospitalist Physical - Physical exam Narrative exam: Not in cardiopulmonary distress. The patient appeared well nourished and normally developed. Vital signs as documented. Head exam is unremarkable. No scleral icterus . Neck is without jugular venous distension, thyromegaly, or carotid bruits. Lungs are clear to auscultation. Cardiac exam reveals regular rate and Rhythm. Abdominal exam reveals normal bowel sounds, no masses, no organomegaly and no aortic enlargement. Extremities are nonedematous and both femoral and pedal pulses are normal. CARTRIDGE LOADER: Alert and oriented 3. No focal weakness. SKIN; molluscum contagiosum. Skin eruption all over. - Constitutional Vitals: Temp Pulse Resp BP Pulse Ox 98.9 F 80 20 107/55 99 11/30/18 05:07 11/30/18 05:07 11/30/18 05:07 11/30/18 05:07 11/30/18 05:07 General appearance: Present: no acute distress, well-nourished Results - Labs CBC & Chem 7: 11/17/18 08:16 11/17/18 08:16 Labs: Laboratory Last Values WBC 2.9 K/mm3 (4.5-11.0) L 11/17/18 08:16 RBC 4.88 M/mm3 (3.65-5.03) 11/17/18 08:16 Hgb 11.4 gm/dl (11.8-15.2) L 11/17/18 08:16 Hct 35.6 % (35.5-45.6) 11/17/18 08:16 MCV 73 fl (84-94) L 11/17/18 08:16 MCH 23 pg (28-32) L 11/17/18 08:16 MCHC 32 % (32-34) 11/17/18 08:16 RDW 15.1 % (13.2-15.2) 11/17/18 08:16 Plt Count 152 K/mm3 (140-440) 11/17/18 08:16 Lymph % (Auto) Supervisor Hydrochloric Area 11/13/18 06:11 Mclennan % (Auto) Supervisor Hydrochloric Area 11/13/18 06:11 Eos % (Auto) Supervisor Hydrochloric Area 11/13/18 06:11 Baso % (Auto) Supervisor Hydrochloric Area 11/13/18 06:11 Lymph # Supervisor Hydrochloric Area 11/13/18 06:11 Mclennan # Supervisor Hydrochloric Area 11/13/18 06:11 Eos # Supervisor Hydrochloric Area 11/13/18 06:11 Baso # Supervisor Hydrochloric Area 11/13/18 06:11 Add Manual Diff Complete 11/17/18 08:16 Total Counted 100 11/17/18 08:16 Seg Neutrophils % Supervisor Hydrochloric Area 11/13/18 06:11 Seg Neuts % (Manual) 53.0 % (40.0-70.0) 11/17/18 08:16 8.0 % 11/17/18 08:16 25.0 % (13.4-35.0) 11/17/18 08:16 Reactive Lymphs % (Man) 3.0 % 11/17/18 08:16 10.0 % (0.0-7.3) H 11/17/18 08:16 0 % (0.0-4.3) 11/17/18 08:16 0 % (0.0-1.8) 11/17/18 08:16 1.0 % 11/17/18 08:16 0 % 11/17/18 08:16 0 % 11/17/18 08:16 0 % 11/17/18 08:16 Nucleated RBC % Not Reportable 11/17/18 08:16 Seg Neutrophils # Supervisor Hydrochloric Area 11/13/18 06:11 Seg Neutrophils # Man 1.5 K/mm3 (1.8-7.7) L 11/17/18 08:16 Band Neutrophils # 0.2 K/mm3 11/17/18 08:16 Abs Lymphs (Manual) See scanned result 11/13/18 14:29 0.7 K/mm3 (1.2-5.4) L 11/17/18 08:16 Abs React Lymphs (Man) 0.1 K/mm3 11/17/18 08:16 0.3 K/mm3 (0.0-0.8) 11/17/18 08:16 0.0 K/mm3 (0.0-0.4) 11/17/18 08:16 0.0 K/mm3 (0.0-0.1) 11/17/18 08:16 0.0 K/mm3 11/17/18 08:16 0.0 K/mm3 11/17/18 08:16 0.0 K/mm3 11/17/18 08:16 Blast Cells # 0.0 K/mm3 11/17/18 08:16 WBC Morphology Not Reportable 11/17/18 08:16 Hypersegmented Neuts Not Reportable 11/17/18 08:16 Hyposegmented Neuts Not Reportable 11/17/18 08:16 Hypogranular Neuts Not Reportable 11/17/18 08:16 Not Reportable 11/17/18 08:16 Not Reportable 11/17/18 08:16 Not Reportable 11/17/18 08:16 Not Reportable 11/17/18 08:16 Not Reportable 11/17/18 08:16 Not Reportable 11/17/18 08:16 Consistent w auto 11/17/18 08:16 Not Reportable 11/17/18 08:16 Plt Clumps, EDTA Not Reportable 11/17/18 08:16 Not Reportable 11/17/18 08:16 Not Reportable 11/17/18 08:16 Not Reportable 11/17/18 08:16 Plt Morphology Comment Not Reportable 11/17/18 08:16 RBC Morphology Not Reportable 11/17/18 08:16 Dimorphic RBCs Not Reportable 11/17/18 08:16 Not Reportable 11/17/18 08:16 1+ 11/17/18 08:16 Not Reportable 11/17/18 08:16 Not Reportable 11/17/18 08:16 Not Reportable 11/17/18 08:16 Not Reportable 11/17/18 08:16 Not Reportable 11/17/18 08:16 Not Reportable 11/17/18 08:16 Not Reportable 11/17/18 08:16 Not Reportable 11/17/18 08:16 Not Reportable 11/17/18 08:16 Not Reportable 11/17/18 08:16 Not Reportable 11/17/18 08:16 Not Reportable 11/17/18 08:16 Not Reportable 11/17/18 08:16 Not Reportable 11/17/18 08:16 Not Reportable 11/17/18 08:16 Not Reportable 11/17/18 08:16 Not Reportable 11/17/18 08:16 Acanthocytes (Spur) Not Reportable 11/17/18 08:16 Rouleaux Not Reportable 11/17/18 08:16 Not Reportable 11/17/18 08:16 Not Reportable 11/17/18 08:16 Not Reportable 11/17/18 08:16 Not Reportable 11/17/18 08:16 Hem Pathologist Commnt No 11/17/18 08:16 PT 13.0 Sec. (12.2-14.9) 11/14/18 14:06 INR 1.01 (0.87-1.13) 11/14/18 14:06 APTT 38.2 Sec. (24.2-36.6) H 11/14/18 14:06 Sodium 141 mmol/L (137-145) 11/17/18 08:16 Potassium 4.5 mmol/L (3.6-5.0) 11/17/18 08:16 Chloride 104.8 mmol/L (98-107) 11/17/18 08:16 Carbon Dioxide 28 mmol/L (22-30) 11/17/18 08:16 13 mmol/L 11/17/18 08:16 BUN 9 mg/dL (9-20) 11/17/18 08:16 0.7 mg/dL (0.8-1.5) L 11/17/18 08:16 Estimated GFR > 60 ml/min 11/17/18 08:16 13 % 11/17/18 08:16 Glucose 84 mg/dL (75-100) 11/17/18 08:16 5.5 % (4-6) 11/12/18 14:22 Lactic Acid 1.50 mmol/L (0.7-2.0) 11/12/18 15:22 Calcium 9.1 mg/dL (8.4-10.2) 11/17/18 08:16 0.20 mg/dL (0.1-1.2) 11/17/18 08:16 AST 63 units/L (5-40) H 11/17/18 08:16 ALT 41 units/L (7-56) 11/17/18 08:16 72 units/L (35-129) 11/17/18 08:16 8.8 g/dL (6.3-8.2) H 11/17/18 08:16 3.1 g/dL (3.9-5) L 11/17/18 08:16 0.5 % 11/17/18 08:16 Fluid Color Red 11/20/18 Unknown Fluid Appearance Bloody 11/20/18 Unknown Fluid WBC 575 /mm3 11/20/18 Unknown Fluid RBC 94592 /mm3 11/20/18 Unknown Fluid Seg Neutrophils 94.0 % 11/20/18 Unknown Fluid Lymphocytes 5.0 % 11/20/18 Unknown Fluid Reactive Lymphs 0 % 11/20/18 Unknown Fluid Monocytes 1.0 % 11/20/18 Unknown Fluid Eosinophils 0 % 11/20/18 Unknown Fluid Basophils 0 % 11/20/18 Unknown Fluid Comment Diff performed 11/20/18 Unknown Clear 11/14/18 Unknown Colorless 11/14/18 Unknown 30 /mm3 (1-10) 11/14/18 Unknown 294 /mm3 (0-0) 11/14/18 Unknown CSF Seg Neutrophils 0 % (0-6) 11/14/18 Unknown 99.0 % (40-80) 11/14/18 Unknown CSF Reactive Lymphs 0 % 11/14/18 Unknown 1.0 % (15-45) 11/14/18 Unknown 0 % 11/14/18 Unknown 0 % 11/14/18 Unknown C 11/14/18 Unknown 52 mg/dL 11/17/18 Unknown 35 mg/dL 11/17/18 Unknown Reactive 1:2 (Nonreactive) H 11/17/18 Unknown Lymph Enumerat CD4/CD8 See scanned result 11/13/18 14:29 % CD3 Cells See scanned result 11/13/18 14:29 See scanned result 11/13/18 14:29 % CD4 Cells See scanned result 11/13/18 14:29 See scanned result 11/13/18 14:29 % CD8 Cells See scanned result 11/13/18 14:29 See scanned result 11/13/18 14:29 % CD19 Cells See scanned result 11/13/18 14:29 See scanned result 11/13/18 14:29 RPR Titer 1:128 11/12/18 14:22 RPR Reactive (Nonreactive) 11/12/18 14:22 T.pallidum Ab (FTA-ABS) Reactive (Nonreactive) H 11/12/18 14:22 C.trachomatis DNA (SDA) Not detected (Not Detected) 11/15/18 06:20 Non-reactive (NonReactive) 11/13/18 14:29 HIV-1 RNA PCR copies/ml [id number] Copies/mL H 11/13/18 14:29 6.46 Log cps/mL H 11/13/18 14:29 N.gonorrhoeae DNA (SDA) Not detected (Not Detected) 11/15/18 06:20 11/20/18 Unknown Fungal Id Prelim 11/20/18 Unknown Flexitest 1 11/14/18 12:50 Active Medications - Current Medications Current Medications: Generic Name Dose Route Start Last Admin Trade Name Freq PRN Reason Stop Dose Admin Acetaminophen 650 mg 11/12/18 21:59 11/28/18 11:21 Tylenol PO 650 mg Q4H PRN Administration Pain MILD(1-3)/Fever >100.5/FALK Acetaminophen/Butalbital/Caffeine 2 tab 11/18/18 14:29 11/27/18 09:18 Fioricet PO 2 tab Q4H PRN Administration Headache Albuterol 2.5 mg 11/12/18 22:02 11/13/18 02:53 Proventil IH 2.5 mg Q4HRT PRN Administration Shortness Of Breath Albuterol/Ipratropium 1 ampul 11/19/18 20:00 11/30/18 08:01 Duoneb *Not For Prn Use* IH Not Given BIDRT WIN Alprazolam 0.5 mg 11/24/18 16:56 11/30/18 08:34 Xanax PO 0.5 mg Q8H PRN Administration Anxiety Enoxaparin Sodium 40 mg 11/13/18 10:00 11/30/18 09:07 Lovenox SUB-Q 40 mg QDAY WIN Administration Fluticasone Propionate 100 mcg 11/13/18 19:00 11/30/18 09:08 Flonase NS 100 mcg QDAY WIN Administration Hydromorphone HCl 0.5 mg 11/12/18 21:59 11/18/18 08:43 Dilaudid IV 0.5 mg Q3H PRN Administration Pain , Severe (7-10) Sodium Chloride 1,000 mls @ 75 mls/hr 11/13/18 08:00 11/30/18 05:56 Nacl 0.9% 1000 Ml IV 75 mls/hr DIRECT WIN Administration Penicillin G Potassium 4 mil. 50 mls @ 100 mls/hr 11/17/18 16:00 11/30/18 09:08 units/ Sodium Chloride IV 11/30/18 22:29 100 mls/hr Q4HR WIN Administration Ondansetron HCl 4 mg 11/12/18 21:59 11/28/18 06:46 Zofran IV 4 mg Q8H PRN Administration Nausea And Vomiting Oxycodone/Acetaminophen 1 tab 11/12/18 21:59 11/30/18 08:36 Percocet 5/325 PO 1 tab Q6H PRN Administration Pain, Moderate (4-6) Sodium Chloride 10 ml 11/12/18 22:00 11/30/18 09:07 Sodium Chloride Flush Syringe 10 Ml IV 10 ml BID WIN Administration Sodium Chloride 10 ml 11/12/18 21:59 Sodium Chloride Flush Syringe 10 Ml IV PRN PRN LINE FLUSH Temazepam 15 mg 11/19/18 22:16 11/29/18 23:29 Restoril PO 15 mg QHS PRN Administration Sleep Trimethoprim/Sulfamethoxazole 1 each 11/19/18 10:00 11/30/18 09:07 Bactrim Ds PO 1 each DAILY WIN Administration Nutrition/Malnutrition Assess - Dietary Evaluation Nutrition/Malnutrition Findings: Nutrition Notes Start: 11/13/18 09:49 Freq: Status: Active Protocol: Document 11/28/18 11:59 DW (Rec: 11/28/18 12:43 DW [id number]) Co-Sign 11/28/18 11:59 LP Nutrition Notes Initial or Follow up Reassessment Other Pertinent Diagnosis HIV Current Diet Regular w/Ensure Enlive BID Labs/Tests Reviewed Pertinent Medications Reviewed Height 5 ft 11 in Weight 68.9 kg [place] Body Weight (kg) 78.18 BMI 21.2 Subjective/Other Information Pt stated that his appetite is normal he has been eating 100 % of his meals when it is something he likes. Pt also stated that visitors bring him food from outside of the hospital. Pt drinkning 100% of ONS Percent of energy/protein needs met: 100%/100% Burn Absent Trauma Absent Minimum of two criteria No #1 Nutrition Diagnosis Predicted suboptimal energy intake As Evidenced by Signs and Symptoms Pt consuming 100% of meals Diagnosis Progress(for reassessment Resolved documentation) Is patient on ventilator? No Is Patient Ambulatory and/or Out of Bed Yes REE-([facility]-ambulatory/OOB) [ 2126.969 [id number]] Calculation Used for Recommendations [facility] Additional Notes Protein needs: 51g-63g/kg (0.8 -1g/kg) Fluid needs: 1ml/kcal Nutrition Intervention Change Diet Order: Regular Add Supplement/Snack (indicate name/kcal Ensure Enlive once daily /protein ) Provides kCal: 350 Provides Protein (gm) 20 Goal #1 Continue to meet at least 75% of protein and energy needs via PO/ONS intakes Anticipated Discharge Needs: Regular Diet Revisit per MD consult or patient Sign Off request:
[2018-11-30] MEDS: ACETAMINOPHEN 325 MG TAB PO PRN (20:30)
[2018-12-01] MEDS: oxyCODONE /ACETAMINOPHEN 5-325MG TAB PO PRN (05:10)
[2018-12-01 06:56] VITALS: BP 101/60
[2018-12-01] MEDS: IPRATROPIUM/ALBUTEROL SULFATE 3 ML AMPUL.NEB IH SCH (07:58)
[2018-12-01] MEDS: FLUTICASONE PROPIONATE NASAL SPRAY 16 GM NS SCH (10:55)
[2018-12-01] MEDS: SULFAMETHOXAZOLE/TRIMETHOPRIM 800/160MG DS TAB PO SCH (10:55)
[2018-12-01] MEDS: ENOXAPARIN 40 MG/0.4 ML INJ SUB-Q SCH (10:55)
--- NOTE | 2018-12-01 10:56 | Progress Note ---
Assessment and Plan Cultures: BCx 11/12 - NGTD 11/13/2018 serum crypto Ag: negative Fungitell <31 Histoplasma Ur Ag: negative Blasto Ur Ag: Negative Bartonella PCR: Negative AFB smears x 2 negative BAL 11/20/2018 AFB smear x 1 rare AFB Assessment: 38 yo M PMHx HIV/AIDS not on ART admitted with fevers, pneumonia. 1. Acute sepsis - present on admission with fevers, leukopenia, tachycardia. Likely secondary to pneumonia. Resolved. Completed pneumonia treatment. 2. Pulmonary nodules in immunocompromised patient: broad differential in patient off ART. In the setting of cavitation must rule out TB. Continue airborne precautions until it is ruled out. Other differential: pulmonary Cryptococcosis (however serum Ag is negative), PJP though does not have classic imaging findings (seems unlikely with negative Fungitell), Histoplasmosis/blastomycosis (Urine Ag negative for both). ? bacterial pneumonia v/s KS / malignancy. s/p bronchoscopy by Dr. Delgado 11/20/2018. BAL 11/20/2018 AFB smear x 1 rare AFB. 3. HIV/AIDS - CD4: 124. Viral load is high at 6 million. Would recommend holding off on starting ART until above ruled out. On OI prophylaxis with Bactrim. 4. Rash - Biopsy report from [facility] suggests that findings highly likely from syphilis related rash, unlikely [place]. 5. Neurosyphilis - RPR 1:128. LP shows 30 WBC all lymphocytes. CSF VDRL also positive. s/p IV penicillin G 24 million units daily as treatment of Neurosyphilis x 14 days ended 11/30/2018 Recs: - BAL 11/20/2018 AFB smear x 1 rare AFB ?TB awaiting for M.TB PCR - I called [facility] and they would reach out [facility] today - continue airborne isolation untill MTB PCR results are back and negative - s/p IV penicillin G 24 million units daily as treatment of Neurosyphilis x 14 days ended 11/30/2018 - continue PO Bactrim DS daily for prophylaxis - f/u BAL for routine culture, AFB, fungal - d/w case management for OPAT arrangements - will need to follow up outpatient to initiate HAART and follow up (ID clinical staff rn was already notified) Will follow Debbie Cancino MD Infectious Diseases Architectural Examiner [facility] M [phone] O [phone] Subjective Date of service: 12/01/18 Principal diagnosis: pneumonia, HIV-AIDS, molluscum contagiosum Interval history: Feels good, wants to go home. No fever. No cough. Objective - Exam Narrative Exam: General appearance: Alert in NAD Eyes: anicteric sclerae, moist conjunctivae; no lid-lag; PERRLA HENT: Atraumatic; oropharynx clear Lungs: CTA CV: RRR no murmur Abdomen: Soft, non-tender; no masses or hepatosplenomegaly Extremities: no edema, no cyanosis Skin: No rash. Psych: Appropriate affect, alert and oriented to person, place and time. Neuro: alert and oriented x 3. Moving all extermities - Constitutional Vitals: Vital Signs Temp Pulse Resp BP Pulse Ox 100.0 F H 77 19 101/60 98 12/01/18 04:07 12/01/18 07:58 12/01/18 07:58 12/01/18 04:07 12/01/18 04:07 Temperature -Last 24 Hours Temperature 100.0 F Temperature 98.0 F Temperature 100.8 F Temperature 99.8 F - Labs CBC & Chem 7: 11/17/18 08:16 11/17/18 08:16
--- NOTE | 2018-12-01 11:41 | Progress Note ---
Assessment and Plan Assessment and plan: 38-year-old man with history of HIV who presented to the hospital with generalized rash, elevated papular lesions all over his body. He was also noted to have cough and congestion upon presentation Acute sepsis, Present on admission with fevers, leukopenia, tachycardia. Likely secondary to pneumonia. Resolved. Completed pneumonia treatment. Pulmonary nodules in immunocompromised patient, Broad differential in patient off ART. In the setting of cavitation must rule out TB. Continue airborne precautions until it is ruled out. Other differential: pulmonary Cryptococcosis (however serum Ag is negative), PJP though does not have classic imaging findings (seems unlikely with negative Fungitell), Histoplasmosis/blastomycosis (Urine Ag negative for both). ? bacterial pneumonia v/s [place] / malignancy. s/p bronchoscopy by Dr. Delgado 11/20/2018. BAL 11/20/2018 AFB smear x 1 rare AFB BAL 11/20/2018 AFB smear x 1 rare AFB ?TB, awaiting M.TB PCR -restarted airborne isolation, till MTB PCR results are back and negative HIV/AIDS CD4: 124. Viral load is high at 6 million. Would recommend holding off on starting ART until above ruled out. On OI prophylaxis with Bactrim. generalized rash, ? bacillary angiomatosis vs Kaposi sarcoma vs disseminated Crypto (unlikely given negative Ag). S/P skin biopsy. Could also be from syphilis. 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 Midline has been placed. Needs funding for IV antibiotics as patient is unfunded. DVT prophylaxis Disposition; continue inpatient care till PCR results come back. Infectious disease Acute sepsis, pulmonary nodules in immunocompromised patient, HIV/AIDS, generalized rash, syphilisRPR 1: 128 Continue antibiotics per ID,continue IV penicillin G 24 million units daily as treatment of Neurosyphilis for 14 days(ending 11/30/2018), midline has been placed, needs funding for IV antibiotics as patient is unfunded. Follow-up skin punch biopsy, -Pulmonology input appreciated, status post bronchoscopy on 11/20, no stigmata of Kaposi's sarcoma,Erythema and blood noted in trachea and the right and left bronchi. -dc resp iso tomorrow if BAL afb is neg DVT prophylaxis Disposition; continue inpatient care dw cm, tentative dc tomorrow Hospitalist Physical - Constitutional Vitals: Temp Pulse Resp BP Pulse Ox 100.0 F H 77 19 101/60 98 12/01/18 04:07 12/01/18 07:58 12/01/18 07:58 12/01/18 04:07 12/01/18 04:07 General appearance: Present: no acute distress, well-nourished Results - Labs CBC & Chem 7: 11/17/18 08:16 11/17/18 08:16 Labs: Laboratory Last Values WBC 2.9 K/mm3 (4.5-11.0) L 11/17/18 08:16 RBC 4.88 M/mm3 (3.65-5.03) 11/17/18 08:16 Hgb 11.4 gm/dl (11.8-15.2) L 11/17/18 08:16 Hct 35.6 % (35.5-45.6) 11/17/18 08:16 MCV 73 fl (84-94) L 11/17/18 08:16 MCH 23 pg (28-32) L 11/17/18 08:16 MCHC 32 % (32-34) 11/17/18 08:16 RDW 15.1 % (13.2-15.2) 11/17/18 08:16 Plt Count 152 K/mm3 (140-440) 11/17/18 08:16 Lymph % (Auto) 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 11/13/18 06:11 Bosque % (Auto) 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 11/13/18 06:11 Eos % (Auto) 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 11/13/18 06:11 Baso % (Auto) 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 11/13/18 06:11 Lymph # 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 11/13/18 06:11 [place] # 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 11/13/18 06:11 Eos # 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 11/13/18 06:11 Baso # 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 11/13/18 06:11 Add Manual Diff Complete 11/17/18 08:16 Total Counted 100 11/17/18 08:16 Seg Neutrophils % 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 11/13/18 06:11 Seg Neuts % (Manual) 53.0 % (40.0-70.0) 11/17/18 08:16 Band Neutrophils % 8.0 % 11/17/18 08:16 Lymphocytes % (Manual) 25.0 % (13.4-35.0) 11/17/18 08:16 Reactive Lymphs % (Man) 3.0 % 11/17/18 08:16 Monocytes % (Manual) 10.0 % (0.0-7.3) H 11/17/18 08:16 Eosinophils % (Manual) 0 % (0.0-4.3) 11/17/18 08:16 Basophils % (Manual) 0 % (0.0-1.8) 11/17/18 08:16 Metamyelocytes % 1.0 % 11/17/18 08:16 Myelocytes % 0 % 11/17/18 08:16 Promyelocytes % 0 % 11/17/18 08:16 Blast Cells % 0 % 11/17/18 08:16 Nucleated RBC % Not Reportable 11/17/18 08:16 Seg Neutrophils # 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 11/13/18 06:11 Seg Neutrophils # Man 1.5 K/mm3 (1.8-7.7) L 11/17/18 08:16 Band Neutrophils # 0.2 K/mm3 11/17/18 08:16 Abs Lymphs (Manual) See scanned result 11/13/18 14:29 Lymphocytes # (Manual) 0.7 K/mm3 (1.2-5.4) L 11/17/18 08:16 Abs React Lymphs (Man) 0.1 K/mm3 11/17/18 08:16 Monocytes # (Manual) 0.3 K/mm3 (0.0-0.8) 11/17/18 08:16 Eosinophils # (Manual) 0.0 K/mm3 (0.0-0.4) 11/17/18 08:16 Basophils # (Manual) 0.0 K/mm3 (0.0-0.1) 11/17/18 08:16 Metamyelocytes # 0.0 K/mm3 11/17/18 08:16 Myelocytes # 0.0 K/mm3 11/17/18 08:16 Promyelocytes # 0.0 K/mm3 11/17/18 08:16 Blast Cells # 0.0 K/mm3 11/17/18 08:16 WBC Morphology Not Reportable 11/17/18 08:16 Hypersegmented Neuts Not Reportable 11/17/18 08:16 Hyposegmented Neuts Not Reportable 11/17/18 08:16 Hypogranular Neuts Not Reportable 11/17/18 08:16 Smudge Cells Not Reportable 11/17/18 08:16 Toxic Granulation Not Reportable 11/17/18 08:16 Toxic Vacuolation Not Reportable 11/17/18 08:16 Dohle Bodies Not Reportable 11/17/18 08:16 Pelger-Huet Anomaly Not Reportable 11/17/18 08:16 Melba Rods Not Reportable 11/17/18 08:16 Platelet Estimate Consistent w auto 11/17/18 08:16 Clumped Platelets Not Reportable 11/17/18 08:16 Plt Clumps, EDTA Not Reportable 11/17/18 08:16 Large Platelets Not Reportable 11/17/18 08:16 Giant Platelets Not Reportable 11/17/18 08:16 Platelet Satelliting Not Reportable 11/17/18 08:16 Plt Morphology Comment Not Reportable 11/17/18 08:16 RBC Morphology Not Reportable 11/17/18 08:16 Dimorphic RBCs Not Reportable 11/17/18 08:16 Polychromasia Not Reportable 11/17/18 08:16 Hypochromasia 1+ 11/17/18 08:16 Poikilocytosis Not Reportable 11/17/18 08:16 Anisocytosis Not Reportable 11/17/18 08:16 Microcytosis Not Reportable 11/17/18 08:16 Macrocytosis Not Reportable 11/17/18 08:16 Spherocytes Not Reportable 11/17/18 08:16 Pappenheimer Bodies Not Reportable 11/17/18 08:16 Sickle Cells Not Reportable 11/17/18 08:16 Target Cells Not Reportable 11/17/18 08:16 Tear Drop Cells Not Reportable 11/17/18 08:16 Ovalocytes Not Reportable 11/17/18 08:16 Helmet Cells Not Reportable 11/17/18 08:16 Gonzalez-Maxton Bodies Not Reportable 11/17/18 08:16 [place] Rings Not Reportable 11/17/18 08:16 Ernie Cells Not Reportable 11/17/18 08:16 Bite Cells Not Reportable 11/17/18 08:16 Crenated Cell Not Reportable 11/17/18 08:16 Elliptocytes Not Reportable 11/17/18 08:16 Acanthocytes (Spur) Not Reportable 11/17/18 08:16 Rouleaux Not Reportable 11/17/18 08:16 Hemoglobin C Crystals Not Reportable 11/17/18 08:16 Schistocytes Not Reportable 11/17/18 08:16 Malaria parasites Not Reportable 11/17/18 08:16 Jason Bodies Not Reportable 11/17/18 08:16 Hem Pathologist Commnt No 11/17/18 08:16 PT 13.0 Sec. (12.2-14.9) 11/14/18 14:06 INR 1.01 (0.87-1.13) 11/14/18 14:06 APTT 38.2 Sec. (24.2-36.6) H 11/14/18 14:06 Sodium 141 mmol/L (137-145) 11/17/18 08:16 Potassium 4.5 mmol/L (3.6-5.0) 11/17/18 08:16 Chloride 104.8 mmol/L (98-107) 11/17/18 08:16 Carbon Dioxide 28 mmol/L (22-30) 11/17/18 08:16 Anion Gap 13 mmol/L 11/17/18 08:16 BUN 9 mg/dL (9-20) 11/17/18 08:16 Creatinine 0.7 mg/dL (0.8-1.5) L 11/17/18 08:16 Estimated GFR > 60 ml/min 11/17/18 08:16 BUN/Creatinine Ratio 13 % 11/17/18 08:16 Glucose 84 mg/dL (75-100) 11/17/18 08:16 Hemoglobin A1c 5.5 % (4-6) 11/12/18 14:22 Lactic Acid 1.50 mmol/L (0.7-2.0) 11/12/18 15:22 Calcium 9.1 mg/dL (8.4-10.2) 11/17/18 08:16 Total Bilirubin 0.20 mg/dL (0.1-1.2) 11/17/18 08:16 AST 63 units/L (5-40) H 11/17/18 08:16 ALT 41 units/L (7-56) 11/17/18 08:16 Alkaline Phosphatase 72 units/L (35-129) 11/17/18 08:16 Total Protein 8.8 g/dL (6.3-8.2) H 11/17/18 08:16 Albumin 3.1 g/dL (3.9-5) L 11/17/18 08:16 Albumin/Globulin Ratio 0.5 % 11/17/18 08:16 Fluid Color Red 11/20/18 Unknown Fluid Appearance Bloody 11/20/18 Unknown Fluid WBC 575 /mm3 11/20/18 Unknown Fluid RBC 22209 /mm3 11/20/18 Unknown Fluid Seg Neutrophils 94.0 % 11/20/18 Unknown Fluid Lymphocytes 5.0 % 11/20/18 Unknown Fluid Reactive Lymphs 0 % 11/20/18 Unknown Fluid Monocytes 1.0 % 11/20/18 Unknown Fluid Eosinophils 0 % 11/20/18 Unknown Fluid Basophils 0 % 11/20/18 Unknown Fluid Comment Diff performed 11/20/18 Unknown CSF Appearance Clear 11/14/18 Unknown CSF Color Colorless 11/14/18 Unknown CSF WBC 30 /mm3 (1-10) 11/14/18 Unknown CSF RBC 294 /mm3 (0-0) 11/14/18 Unknown CSF Seg Neutrophils 0 % (0-6) 11/14/18 Unknown CSF Lymphocytes % 99.0 % (40-80) 11/14/18 Unknown CSF Reactive Lymphs 0 % 11/14/18 Unknown CSF Monocytes % 1.0 % (15-45) 11/14/18 Unknown CSF Eosinophils % 0 % 11/14/18 Unknown CSF Basophils 0 % 11/14/18 Unknown CSF Pathologist Review C 11/14/18 Unknown CSF Glucose 52 mg/dL 11/17/18 Unknown CSF Total Protein 35 mg/dL 11/17/18 Unknown CSF VDRL Reactive 1:2 (Nonreactive) H 11/17/18 Unknown Lymph Enumerat CD4/CD8 See scanned result 11/13/18 14:29 % CD3 Cells See scanned result 11/13/18 14:29 Absolute CD3 Count See scanned result 11/13/18 14:29 % CD4 Cells See scanned result 11/13/18 14:29 Absolute CD4 Count See scanned result 11/13/18 14:29 % CD8 Cells See scanned result 11/13/18 14:29 Absolute CD8 Count See scanned result 11/13/18 14:29 % CD19 Cells See scanned result 11/13/18 14:29 Absolute CD19 Count See scanned result 11/13/18 14:29 RPR Titer 1:128 11/12/18 14:22 RPR Reactive (Nonreactive) 11/12/18 14:22 T.pallidum Ab (FTA-ABS) Reactive (Nonreactive) H 11/12/18 14:22 C.trachomatis DNA (SDA) Not detected (Not Detected) 11/15/18 06:20 Hepatitis C Antibody Non-reactive (NonReactive) 11/13/18 14:29 HIV-1 RNA PCR copies/ml [id number] Copies/mL H 11/13/18 14:29 HIV-1 RNA (PCR) log 6.46 Log cps/mL H 11/13/18 14:29 N.gonorrhoeae DNA (SDA) Not detected (Not Detected) 11/15/18 06:20 AFB Identification 11/20/18 Unknown Fungal Id Prelim 11/20/18 Unknown Miscellaneous Test Flexitest 1 11/14/18 12:50 Active Medications - Current Medications Current Medications: Generic Name Dose Route Start Last Admin Trade Name Freq PRN Reason Stop Dose Admin Acetaminophen 650 mg 11/12/18 21:59 11/30/18 20:30 Tylenol PO 650 mg Q4H PRN Administration Pain MILD(1-3)/Fever >100.5/FALK Acetaminophen/Butalbital/Caffeine 2 tab 11/18/18 14:29 11/27/18 09:18 Fioricet PO 2 tab Q4H PRN Administration Headache Albuterol 2.5 mg 11/12/18 22:02 11/13/18 02:53 Proventil IH 2.5 mg Q4HRT PRN Administration Shortness Of Breath Albuterol/Ipratropium 1 ampul 11/19/18 20:00 12/01/18 07:58 Duoneb *Not For Prn Use* IH 1 ampul BIDRT WIN Administration Alprazolam 0.5 mg 11/24/18 16:56 11/30/18 20:30 Xanax PO 0.5 mg Q8H PRN Administration Anxiety Enoxaparin Sodium 40 mg 11/13/18 10:00 12/01/18 10:55 Lovenox SUB-Q Not Given QDAY WIN Fluticasone Propionate 100 mcg 11/13/18 19:00 12/01/18 10:55 Flonase NS Not Given QDAY WIN Hydromorphone HCl 0.5 mg 11/12/18 21:59 11/18/18 08:43 Dilaudid IV 0.5 mg Q3H PRN Administration Pain , Severe (7-10) Sodium Chloride 1,000 mls @ 75 mls/hr 11/13/18 08:00 11/30/18 05:56 Nacl 0.9% 1000 Ml IV 75 mls/hr DIRECT WIN Administration Ondansetron HCl 4 mg 11/12/18 21:59 11/28/18 06:46 Zofran IV 4 mg Q8H PRN Administration Nausea And Vomiting Oxycodone/Acetaminophen 1 tab 11/12/18 21:59 12/01/18 05:10 Percocet 5/325 PO 1 tab Q6H PRN Administration Pain, Moderate (4-6) Sodium Chloride 10 ml 11/12/18 22:00 12/01/18 10:56 Sodium Chloride Flush Syringe 10 Ml IV Not Given BID WIN Sodium Chloride 10 ml 11/12/18 21:59 Sodium Chloride Flush Syringe 10 Ml IV PRN PRN LINE FLUSH Temazepam 15 mg 11/19/18 22:16 11/29/18 23:29 Restoril PO 15 mg QHS PRN Administration Sleep Trimethoprim/Sulfamethoxazole 1 each 11/19/18 10:00 12/01/18 10:55 Bactrim Ds PO Not Given DAILY WIN Nutrition/Malnutrition Assess - Dietary Evaluation Nutrition/Malnutrition Findings: Nutrition Notes Start: 11/13/18 09:49 Freq: Status: Active Protocol: Document 11/28/18 11:59 DW (Rec: 11/28/18 12:43 DW [id number]) Co-Sign 11/28/18 11:59 LP Nutrition Notes Initial or Follow up Reassessment Other Pertinent Diagnosis HIV Current Diet Regular w/Ensure Enlive BID Labs/Tests Reviewed Pertinent Medications Reviewed Height 5 ft 11 in Weight 68.9 kg [place] Body Weight (kg) 78.18 BMI 21.2 Subjective/Other Information Pt stated that his appetite is normal he has been eating 100 % of his meals when it is something he likes. Pt also stated that visitors bring him food from outside of the hospital. Pt drinkning 100% of ONS Percent of energy/protein needs met: 100%/100% Burn Absent Trauma Absent Minimum of two criteria No #1 Nutrition Diagnosis Predicted suboptimal energy intake As Evidenced by Signs and Symptoms Pt consuming 100% of meals Diagnosis Progress(for reassessment Resolved documentation) Is patient on ventilator? No Is Patient Ambulatory and/or Out of Bed Yes REE-([facility]-ambulatory/OOB) [ 2126.969 [id number]] Calculation Used for Recommendations [facility] Additional Notes Protein needs: 51g-63g/kg (0.8 -1g/kg) Fluid needs: 1ml/kcal Nutrition Intervention Change Diet Order: Regular Add Supplement/Snack (indicate name/kcal Ensure Enlive once daily /protein ) Provides kCal: 350 Provides Protein (gm) 20 Goal #1 Continue to meet at least 75% of protein and energy needs via PO/ONS intakes Anticipated Discharge Needs: Regular Diet Revisit per MD consult or patient Sign Off request:
[2018-12-01] MEDS ORDERED: ETHAMBUTOL 400 MG TAB PO SCH ×2 (13:00→15:00)
--- NOTE | 2018-12-01 14:00 | Discharge Summary ---
Providers - Providers Date of Admission: 11/12/18 22:00 Attending physician: MAGALY SINGH MD 11/12/18 21:59 Consult to Physician [CONS] Routine Comment: Consulting Provider: THERESE CUMMINS Physician Instructions: Reason For Exam: Fever/PNA/HIV 11/14/18 07:56 Consult to Physician [CONS] Routine Comment: per ID request Consulting Provider: LEONORA WESLEY Physician Instructions: Reason For Exam: skin biopsy, kaposis sarcoma 11/19/18 10:42 Midline [Consult to PICC Line RN] [CONS] Routine Reason For Exam: for IV abx Type Line:: Midline 11/20/18 13:49 Consult to Case Management [CONS] Routine Services Needed at Discharge: Other Notified:: copy given to cm Additional Physician Instructions: [facility] ([facility]) O: [phone] F: [phone] OUTPATIENT PARENTERAL ANTIBIOTIC THERAPY (OPAT) ORDERS Diagnoses: Neurosyphilis, AIDS Antimicrobial administration: IV penicillin G 24 million units daily as continuous infusion ending 11/30/2018 - Remove mid line after last dose unless otherwise instructed. Lines: Maintain IV access with weekly dressing changes and locks per protocol. Lab monitoring: - CBC with differential, Creatinine, ALT, AST once a week every Saturday while on IV antibiotics. Please fax results to [phone] and call [phone] for critical lab results. An Brock MD [facility] Primary care physician: TAINA HUGHES Hospitalization Condition: Critical Hospital course: 38-year-old man with history of HIV who presented to the hospital with generalized rash, elevated papular lesions all over his body. He was also noted to have cough and congestion upon presentation Acute sepsis, pna Present on admission with fevers, leukopenia, tachycardia. Likely secondary to pneumonia. Resolved. Completed pneumonia treatment. Pulmonary nodules in immunocompromised patient, Broad differential in patient off ART. In the setting of cavitation must rule out TB. Continue airborne precautions until it is ruled out. Other differential: pulmonary Cryptococcosis (however serum Ag is negative), PJP though does not have classic imaging findings (seems unlikely with negative Fungitell), Histoplasmosis/blastomycosis (Urine Ag negative for both). ? bacterial pneumonia v/s [place] / malignancy. s/p bronchoscopy by Dr. Delgado 11/20/2018. BAL 11/20/2018 AFB smear x 1 rare AFB he completed abx for rx of PNA, and will fup with PUlmonary as OP BAL 11/20/2018 AFB smear x 1 rare AFB ?TB, awaiting M.TB PCR he was started on TB meds, and will fup as OP for AFB culture and PCR, he was advised to stay home until his results are back, he verbalized understanding HIV/AIDS CD4: 124. Viral load is high at 6 million. Would recommend holding off on starting ART until above ruled out. On OI prophylaxis with Bactrim. generalized rash, ? bacillary angiomatosis vs Kaposi sarcoma vs disseminated Crypto (unlikely given negative Ag). S/P skin biopsy. Could also be from syphilis. Follow-up skin punch biopsy, Sent for Derm path to outside lab, will fup with ID as OP Neurosyphilis RPR 1: 128 he completed IV abx while hospital. Diagnosis Acute sepsis, pulmonary nodules in immunocompromised patient, HIV/AIDS, generalized rash, syphilisRPR 1: 128 Positive Lung AFB, suspected TB of note he was afebrile, rash and pulmonary symptoms had resolved at time of dc Disposition: DC-01 TO HOME OR SELFCARE Time spent for discharge: 33 min Core Measure Documentation - Palliative Care Palliative Care/ Comfort Measures: Not Applicable - Core Measures Any of the following diagnoses?: none Exam - Constitutional Vitals: Temp Pulse Resp BP Pulse Ox 100.0 F H 77 19 101/60 98 12/01/18 04:07 12/01/18 07:58 12/01/18 07:58 12/01/18 04:07 12/01/18 04:07 General appearance: Present: no acute distress, well-nourished - EENT Eyes: Present: PERRL ENT: hearing intact, clear oral mucosa - Neck Neck: Present: supple, normal ROM - Respiratory Respiratory effort: normal Respiratory: bilateral: CTA - Cardiovascular Heart Sounds: Present: S1 & S2. Absent: rub, click - Extremities Extremities: pulses symmetrical, No edema Peripheral Pulses: within normal limits - Abdominal General gastrointestinal: Present: soft, non-tender, non-distended, normal bowel sounds Male genitourinary: Present: normal - Integumentary Integumentary: Present: clear, warm, dry - Musculoskeletal Musculoskeletal: gait normal, strength equal bilaterally - Psychiatric Psychiatric: appropriate mood/affect, intact judgment & insight - Neurologic Neurologic: CNII-XII intact, moves all extremities Plan Follow up with: TAINA HUGHES MD [Primary Care Provider] - 3-5 Days Prescriptions: Sulfamethoxazole/Trimethoprim [Bactrim DS TAB] 1 each PO DAILY #30 tablet Fluticasone [Flonase] 100 mcg NS QDAY #1 bottle Isoniazid 300 mg PO QDAY #30 tablet Ethambutol [Myambutol] 1,600 mg PO QDAY #120 tablet Pyrazinamide 2,000 mg PO QDAY #120 tablet rifAMPin [Rifadin] 600 mg PO QDAY #60 capsule Pyridoxine [Vitamin B-6 50MG TAB] 50 mg PO QDAY #30 tablet
[2018-12-01] MEDS ORDERED: PYRAZINAMIDE 500 MG TAB PO SCH (15:00)
[2018-12-01] MEDS ORDERED: ISONIAZID 300 MG TAB PO SCH (15:00)
[2018-12-01] MEDS ORDERED: PYRIDOXINE 50 MG TAB PO SCH (15:00)
[2018-12-01] MEDS ORDERED: rifAMPin 300 MG CAP PO SCH (15:00)
== END 2018-12-01 16:00 | disposition home or self-care (01) | DRG 975 ==
LOC: ED 14:04 → 3A 22:00
PROVIDERS: ADMIT Internal Medicine; ATTEND Internal Medicine
PROC: 0HB6XZX Excision of Back Skin, External Approach, Diagnostic (ICD-10-PCS; principal; 2018-11-14)
PROC: 009U3ZX Drainage of Spinal Canal, Percutaneous Approach, Diagnostic (ICD-10-PCS; 2018-11-17)
PROC: B01B1ZZ Fluoroscopy of Spinal Cord using Low Osmolar Contrast (ICD-10-PCS; 2018-11-17)
PROC: 0XH833Z Insertion of Infusion Device into Right Upper Arm, Percutaneous Approach (ICD-10-PCS; 2018-11-19)
PROC: 0B998ZZ Drainage of Lingula Bronchus, Via Natural or Artificial Opening Endoscopic (ICD-10-PCS; 2018-11-20)
DX: B20 Human immunodeficiency virus [HIV] disease (principal); A41.9 Sepsis, unspecified organism; E87.1 Hypo-osmolality and hyponatremia; J18.1 Lobar pneumonia, unspecified organism; G04.90 Encephalitis and encephalomyelitis, unspecified; C46.9 Kaposi's sarcoma, unspecified; E46 Unspecified protein-calorie malnutrition; Z68.42 Body mass index [BMI] 45.0-49.9, adult; R21 Rash and other nonspecific skin eruption; T78.49XA Other allergy, initial encounter; R91.1 Solitary pulmonary nodule; F17.210 Nicotine dependence, cigarettes, uncomplicated; Z91.19 Patient's noncompliance with other medical treatment and regimen
CPT/HCPCS: 36415; 62270; 71046; 71260; 77003; 80048; 80053; 82024; 82140; 82164; 82947; 83036; 84160; 85007; 85025; 85049; 85610; 85730; 86403; 86592; 86593; 86780; 86803; 87040; 87102; 87116; 87498; 87536; 87591; 87799; 87901; 88112; 88305; 88312; 88341; 88342; 89051; 94640; 99406; G0378; J0456; J0696; J1170; J1650; J2405; J2540; J2704; J7030; J7042; J7050; Q9967

== ENCOUNTER 2020-02-15 16:33 | Emergency (ER) | payer SELFPAY ==
[2020-02-15 16:55] VITALS: BP 110/64
--- NOTE | 2020-02-15 18:11 | Emergency Department Report ---
- General Chief complaint: Skin Rash Stated complaint: RASH Time Seen by Provider: 02/15/20 18:07 Source: patient Mode of arrival: Ambulatory Limitations: No Limitations - History of Present Illness Initial comments: Patient is a 39-year-old male presents emergency room complaints of a rash that began 6 days ago. States it feels like itching and a burning sensation. He states that he can stand to have anything on it or any clothing on it. He denies any new soaps, lotions, detergents, anything new that he can think of. He denies anyone else with the same rash. PMHx HIV. No allergies to medications. - Related Data Previous Rx's Medication Instructions Recorded Last Taken Type Ethambutol [Myambutol] 1,600 mg PO QDAY #120 tablet 12/01/18 Unknown Rx Fluticasone [Flonase] 100 mcg NS QDAY #1 bottle 12/01/18 Unknown Rx Isoniazid 300 mg PO QDAY #30 tablet 12/01/18 Unknown Rx Pyrazinamide 2,000 mg PO QDAY #120 tablet 12/01/18 Unknown Rx Pyridoxine [Vitamin B-6 50MG TAB] 50 mg PO QDAY #30 tablet 12/01/18 Unknown Rx Sulfamethoxazole/Trimethoprim 1 each PO DAILY #30 tablet 12/01/18 Unknown Rx [Bactrim DS TAB] rifAMPin [Rifadin] 600 mg PO QDAY #60 capsule 12/01/18 Unknown Rx Lidocaine [Lidocaine GEL] 1 applicatio TP BID #30 gel..gram. 02/15/20 Unknown Rx Prednisone [predniSONE 10 mg 10 mg PO .TAPER #1 tab.ds.pk 02/15/20 Unknown Rx (6-Day Pack, 21 Tabs)] Valacyclovir HCl [Valacyclovir] 1,000 mg PO TID 7 Days #21 tablet 02/15/20 Unknown Rx traMADoL [Ultram 50 MG tab] 50 mg PO Q6HR PRN #10 tablet 02/15/20 Unknown Rx Allergies Allergy/AdvReac Type Severity Reaction Status Date / Time No Known Allergies Allergy Unverified 11/12/18 14:07 Abscess Boil HPI - HPI Chief Complaint: Skin Rash Stated Complaint: RASH Time Seen by Provider: 02/15/20 18:07 Home Medications: Previous Rx's Medication Instructions Recorded Last Taken Type Ethambutol [Myambutol] 1,600 mg PO QDAY #120 tablet 12/01/18 Unknown Rx Fluticasone [Flonase] 100 mcg NS QDAY #1 bottle 12/01/18 Unknown Rx Isoniazid 300 mg PO QDAY #30 tablet 12/01/18 Unknown Rx Pyrazinamide 2,000 mg PO QDAY #120 tablet 12/01/18 Unknown Rx Pyridoxine [Vitamin B-6 50MG TAB] 50 mg PO QDAY #30 tablet 12/01/18 Unknown Rx Sulfamethoxazole/Trimethoprim 1 each PO DAILY #30 tablet 12/01/18 Unknown Rx [Bactrim DS TAB] rifAMPin [Rifadin] 600 mg PO QDAY #60 capsule 12/01/18 Unknown Rx Lidocaine [Lidocaine GEL] 1 applicatio TP BID #30 gel..gram. 02/15/20 Unknown Rx Prednisone [predniSONE 10 mg 10 mg PO .TAPER #1 tab.ds.pk 02/15/20 Unknown Rx (6-Day Pack, 21 Tabs)] Valacyclovir HCl [Valacyclovir] 1,000 mg PO TID 7 Days #21 tablet 02/15/20 Unknown Rx traMADoL [Ultram 50 MG tab] 50 mg PO Q6HR PRN #10 tablet 02/15/20 Unknown Rx Allergies/Adverse Reactions: Allergies Allergy/AdvReac Type Severity Reaction Status Date / Time No Known Allergies Allergy Unverified 11/12/18 14:07 ED Review of Systems ROS: Stated complaint: RASH Other details as noted in HPI Comment: All other systems reviewed and negative ED Past Medical Hx - Past Medical History Previous Medical History?: Yes Hx Deep Vein Thrombosis: No Hx HIV: Yes - Surgical History Hx Pacemaker: No Hx Internal Defibrillator: No - Social History Smoking Status: Never Smoker Substance Use Type: None - Medications Home Medications: Home Medications Medication Instructions Recorded Confirmed Last Taken Type Ethambutol [Myambutol] 1,600 mg PO QDAY #120 tablet 12/01/18 Unknown Rx Fluticasone [Flonase] 100 mcg NS QDAY #1 bottle 12/01/18 Unknown Rx Isoniazid 300 mg PO QDAY #30 tablet 12/01/18 Unknown Rx Pyrazinamide 2,000 mg PO QDAY #120 tablet 12/01/18 Unknown Rx Pyridoxine [Vitamin B-6 50MG TAB] 50 mg PO QDAY #30 tablet 12/01/18 Unknown Rx Sulfamethoxazole/Trimethoprim 1 each PO DAILY #30 tablet 12/01/18 Unknown Rx [Bactrim DS TAB] rifAMPin [Rifadin] 600 mg PO QDAY #60 capsule 12/01/18 Unknown Rx Lidocaine [Lidocaine GEL] 1 applicatio TP BID #30 gel..gram. 02/15/20 Unknown Rx Prednisone [predniSONE 10 mg 10 mg PO .TAPER #1 tab.ds.pk 02/15/20 Unknown Rx (6-Day Pack, 21 Tabs)] Valacyclovir HCl [Valacyclovir] 1,000 mg PO TID 7 Days #21 tablet 02/15/20 Unknown Rx traMADoL [Ultram 50 MG tab] 50 mg PO Q6HR PRN #10 tablet 02/15/20 Unknown Rx ED Physical Exam - General Limitations: No Limitations General appearance: alert, in no apparent distress - Head Head exam: Present: atraumatic, normocephalic - Eye Eye exam: Present: normal appearance - ENT ENT exam: Present: mucous membranes moist - Respiratory Respiratory exam: Absent: respiratory distress, accessory muscle use - Neurological Exam Neurological exam: Present: alert, oriented X3 - Psychiatric Psychiatric exam: Present: normal affect, normal mood - Skin Skin exam: Present: warm, dry, other (maculopapule rash with vesicles and scabbing present to the right lower abdomen and right lower back in a dermatomal distribution ) ED Course Vital Signs 02/15/20 16:52 Temperature 98.1 F Pulse Rate 72 Respiratory 18 Rate Blood Pressure 110/64 O2 Sat by Pulse 100 Oximetry ED Medical Decision Making - Medical Decision Making Patient is a 39-year-old male presents emergency room complaints of a rash that began 6 days ago. States it feels like itching and a burning sensation. He states that he can stand to have anything on it or any clothing on it. He denies any new soaps, lotions, detergents, anything new that he can think of. He denies anyone else with the same rash. PMHx HIV. No allergies to medications. VSS. on exam: maculopapule rash with vesicles and scabbing present to the right lower abdomen and right lower back in a dermatomal distribution. Examination appears consistent with shingles outbreak. Patient given prescription for valacyclovir, prednisone, tramadol, lidocaine gel. Advised patient Please use medication as prescribed. Please follow-up with your primary care doctor. Please discuss the shingles vaccine with your primary care doctor and pain after shingles outbreak. Return to emergency room for any new or worsening symptoms. Critical care attestation.: If time is entered above; I have spent that time in minutes in the direct care of this critically ill patient, excluding procedure time. ED Disposition Clinical Impression: Shingles outbreak Qualifiers: Herpes zoster complications: without complications Qualified Code(s): B02.9 - Zoster without complications Disposition: TO HOME OR SELFCARE Is pt being admited?: No Does the pt Need Aspirin: No Condition: Stable Instructions: Shingles Additional Instructions: Please use medication as prescribed. Please follow-up with your primary care doctor. Please discuss the shingles vaccine with your primary care doctor and pain after shingles outbreak. Return to emergency room for any new or worsening symptoms. Prescriptions: Lidocaine [Lidocaine GEL] 1 applicatio TP BID #30 gel..gram. Prednisone [predniSONE 10 mg (6-Day Pack, 21 Tabs)] 10 mg PO .TAPER #1 tab.ds.pk traMADoL [Ultram 50 MG tab] 50 mg PO Q6HR PRN #10 tablet PRN Reason: Pain Valacyclovir HCl [Valacyclovir] 1,000 mg PO TID 7 Days #21 tablet Referrals: your, primary care doctor [Other] - 2-3 Days Time of Disposition: 18:09 Print Language: SLOV[place]
== END 2020-02-15 18:25 | disposition home or self-care (01) ==
LOC: ED 16:33
DX: B02.9 Zoster without complications (principal); Z79.899 Other long term (current) drug therapy; Z21 Asymptomatic human immunodeficiency virus [HIV] infection status
CPT/HCPCS: 99282